=== PATIENT | female | born 1955 | race Caucasian/White ===

== ENCOUNTER 2017-11-23 10:14 | Day surgery (SDC) | payer BC, SELFPAY ==
[2017-11-20 15:21] VITALS: BMI 28.7
[2017-11-23 10:38] VITALS: BP 136/73; PULSE 100; RESP 18; TEMP 36.7; O2SAT 94
[2017-11-23 11:25] VITALS: BP 138/72; PULSE 85; RESP 18; TEMP 36.8; O2SAT 95
[2017-11-23 11:55] VITALS: BP 141/77; PULSE 76; RESP 18; TEMP 36.8; O2SAT 97
--- NOTE | 2017-11-23 12:02 | SUR.OPER ---
Vinh Enamorado, pathologist performed bone marrow biopsy, not Nii Pelaez.
--- NOTE | 2017-11-23 12:10 | SUR.OPER ---
system will not allow me to put another name in besides Dr. Nii Pelaez, although he did NOT perform the bone marrow biopsy.
== END 2017-11-23 11:55 | disposition home or self-care (01) ==
PROVIDERS: Pathology Anatomic Pathology & Clinical Pathology; PCP Family Medicine; Visit Provider Internal Medicine Medical Oncology
DX: D72.824 Basophilia
CPT/HCPCS: 38221; 20220; J1642

== ENCOUNTER → 2017-12-03 11:53 | Outpatient (CLI) | payer BC, SELFPAY ==
[2017-12-03 12:26] LABS: Basophils # 1.4 K/mm3 (0-0.2); Basophils % 3.6 % (0.1-2.0); Eosinophils # 1.1 K/mm3 (0.0-0.4); Eosinophils % 2.6 % (0.1-12.0); Lymphocytes # 1.4 K/mm3 (0.7-4.5); Lymphocytes % 3.5 K/mm3 (10-50); Mean Corpuscular HGB Conc 31.2 g/dL (31.8-35.4); Mean Corpuscular Volume 92.9 fl (81-99); Mean Platelet Volume 8.3 fl (7.4-10.4); Monocytes # 1.8 K/mm3 (0.1-1.0); Monocytes % 4.5 % (1.7-9.3); Neutrophils # 34.6 K/mm3 (1.8-7.8); Neutrophils % 85.9 % (37.0-80.0); Platelet Count 203 K/mm3 (142-424); Red Blood Count 4.84 M/mm3 (4.20-5.40); Red Cell Distribution Width 14.8 % (11.5-17.5)
[2017-12-03 12:47] LABS: MANUAL DIFFERENTIAL MANUAL DIFFERENTIAL (MANUAL DIFF); White Blood Count 40.3 K/mm3 (4.8-10.8)
[2017-12-03 14:30] LABS: Eosinophils % 1 % (0-3); Lymphocytes % 7 % (10-50); Monocytes % 4 % (2-9); Neutrophils % 67 % (42-76); Total Cells Counted 100
[2017-12-03 14:34] LABS: Platelet Estimate Normal; RBC Morphology Normal
[2017-12-03 14:39] LABS: Alanine Aminotransferase 38 U/L (12-78); Albumin Level 4.1 gm/dL (3.4-5.0); Albumin/Globulin Ratio 1.2 (1.1-1.8); Alkaline Phosphatase 81 U/L (46-116); Anion Gap 10.4 mEq/L (5-15); Aspartate Amino Transferase 21 U/L (15-37); Bilirubin,Total 0.3 mg/dL (0.2-1.0); Blood Urea Nitrogen 17 mg/dL (7-18); Calcium 10.3 mg/dL (8.5-10.1); Carbon Dioxide 29 mmol/L (21.0-32.0); Chloride 106 mmol/L (98-107); Creatinine,Serum 0.91 mg/dL (0.55-1.02); Estimated Glomerular Filt Rate 62 ml/min (>60); GFR (African American) 75 ML/MIN (>60); Globulin 3.5 gm/dl (1.3-3.2); Glucose 89 mg/dL (74-106); Magnesium 2.1 mg/dL (1.4-2.2); Potassium 4.4 mmoL/L (3.5-5.1); Sodium 141 mmol/L (136-145); Total Protein,Serum 7.6 gm/dL (6.4-8.2)
[2017-12-05 14:36] LABS: Peripheral Smear Review Scanned Result
[2017-12-11 15:18] LABS: e13a2 (b2a2) transcript Comment: % (.)
== END ==
PROVIDERS: Visit Provider Internal Medicine Medical Oncology
DX: C92.10 Chronic myeloid leukemia, BCR/ABL-positive, not having achieved remission (principal)
CPT/HCPCS: 36415; 80053; 81206; 83735; 85007; 85025; 93005

== ENCOUNTER → 2017-12-24 13:00 | Outpatient (CLI) | payer BC, SELFPAY ==
[2017-12-24 13:50] LABS: Basophils # 0.1 K/mm3 (0-0.2); Eosinophils # 0.1 K/mm3 (0.0-0.4); Eosinophils % 1.9 % (0.1-12.0); Hematocrit 37.2 % (37.0-47.0); Hemoglobin 12.3 g/dL (12.2-16.2); Lymphocytes # 0.8 K/mm3 (0.7-4.5); Lymphocytes % 11.4 K/mm3 (10-50); Mean Corpuscular HGB Conc 33.1 g/dL (31.8-35.4); Mean Corpuscular Hemoglobin 30.8 pg (27.0-31.2); Mean Corpuscular Volume 93.2 fl (81-99); Mean Platelet Volume 8.3 fl (7.4-10.4); Monocytes # 0.2 K/mm3 (0.1-1.0); Monocytes % 3.5 % (1.7-9.3); Neutrophils # 5.8 K/mm3 (1.8-7.8); Neutrophils % 82.2 % (37.0-80.0); Platelet Count 138 K/mm3 (142-424); Red Blood Count 3.99 M/mm3 (4.20-5.40)
[2017-12-24 14:20] LABS: Alanine Aminotransferase 37 U/L (12-78); Albumin Level 3.7 gm/dL (3.4-5.0); Albumin/Globulin Ratio 1.2 (1.1-1.8); Alkaline Phosphatase 88 U/L (46-116); Anion Gap 11.2 mEq/L (5-15); Aspartate Amino Transferase 20 U/L (15-37); Bilirubin,Total 0.5 mg/dL (0.2-1.0); Blood Urea Nitrogen 17 mg/dL (7-18); Calcium 10.1 mg/dL (8.5-10.1); Carbon Dioxide 29 mmol/L (21.0-32.0); Chloride 104 mmol/L (98-107); Creatinine,Serum 1.02 mg/dL (0.55-1.02); Estimated Glomerular Filt Rate 55 ml/min (>60); GFR (African American) 66 ML/MIN (>60); Globulin 3.1 gm/dl (1.3-3.2); Glucose 114 mg/dL (74-106); Magnesium 1.9 mg/dL (1.4-2.2); Potassium 4.2 mmoL/L (3.5-5.1); Sodium 140 mmol/L (136-145); Total Protein,Serum 6.8 gm/dL (6.4-8.2)
== END ==
LOC: LAB 13:01 → RT 14:22
PROVIDERS: PCP Family Medicine; Visit Provider Internal Medicine Medical Oncology
DX: D72.829 Elevated white blood cell count, unspecified (principal)
CPT/HCPCS: 36415; 80053; 83735; 85025; 93005

== ENCOUNTER → 2017-12-31 08:14 | Outpatient (CLI) | payer BC, SELFPAY ==
[2017-12-31 08:46] LABS: Basophils % 0.4 % (0.1-2.0); Eosinophils # 0.1 K/mm3 (0.0-0.4); Eosinophils % 4.1 % (0.1-12.0); Hematocrit 36.8 % (37.0-47.0); Lymphocytes # 0.8 K/mm3 (0.7-4.5); Lymphocytes % 23.8 K/mm3 (10-50); Mean Corpuscular HGB Conc 32.5 g/dL (31.8-35.4); Mean Corpuscular Hemoglobin 30.5 pg (27.0-31.2); Mean Platelet Volume 8.1 fl (7.4-10.4); Monocytes # 0.2 K/mm3 (0.1-1.0); Monocytes % 6.1 % (1.7-9.3); Neutrophils # 2.2 K/mm3 (1.8-7.8); Neutrophils % 65.6 % (37.0-80.0); Platelet Count 161 K/mm3 (142-424); Red Blood Count 3.92 M/mm3 (4.20-5.40); Red Cell Distribution Width 15.4 % (11.5-17.5); White Blood Count 3.3 K/mm3 (4.8-10.8)
== END ==
PROVIDERS: PCP Family Medicine; Visit Provider Internal Medicine Medical Oncology
DX: C92.10 Chronic myeloid leukemia, BCR/ABL-positive, not having achieved remission (principal)
CPT/HCPCS: 36415; 85025

== ENCOUNTER → 2018-01-07 13:10 | Outpatient (CLI) | payer MEDICARE, SELFPAY ==
[2018-01-07 13:44] LABS: Basophils % 0.9 % (0.1-2.0); Eosinophils # 0.2 K/mm3 (0.0-0.4); Eosinophils % 6.8 % (0.1-12.0); Hemoglobin 12.1 g/dL (12.2-16.2); Lymphocytes # 0.7 K/mm3 (0.7-4.5); Mean Corpuscular HGB Conc 31.7 g/dL (31.8-35.4); Mean Corpuscular Hemoglobin 30.3 pg (27.0-31.2); Mean Corpuscular Volume 95.6 fl (81-99); Mean Platelet Volume 8.1 fl (7.4-10.4); Monocytes # 0.2 K/mm3 (0.1-1.0); Monocytes % 8.2 % (1.7-9.3); Neutrophils # 1.7 K/mm3 (1.8-7.8); Neutrophils % 59.1 % (37.0-80.0); Platelet Count 227 K/mm3 (142-424); Red Blood Count 3.98 M/mm3 (4.20-5.40); Red Cell Distribution Width 15.3 % (11.5-17.5); White Blood Count 2.9 K/mm3 (4.8-10.8)
== END ==
PROVIDERS: PCP Family Medicine; Referring Provider Internal Medicine Medical Oncology; Visit Provider Internal Medicine Medical Oncology
DX: C92.10 Chronic myeloid leukemia, BCR/ABL-positive, not having achieved remission (principal)
CPT/HCPCS: 36415; 85025

== ENCOUNTER → 2018-01-21 09:04 | Outpatient (CLI) | payer MEDICARE, SELFPAY ==
[2018-01-21 09:23] LABS: Basophils # 0.1 K/mm3 (0-0.2); Basophils % 2.8 % (0.1-2.0); Eosinophils # 0.1 K/mm3 (0.0-0.4); Eosinophils % 1.4 % (0.1-12.0); Hematocrit 41.4 % (37.0-47.0); Hemoglobin 13.5 g/dL (12.2-16.2); Lymphocytes # 0.9 K/mm3 (0.7-4.5); Lymphocytes % 20.1 K/mm3 (10-50); Mean Corpuscular HGB Conc 32.5 g/dL (31.8-35.4); Mean Corpuscular Hemoglobin 30.7 pg (27.0-31.2); Mean Corpuscular Volume 94.3 fl (81-99); Mean Platelet Volume 8.3 fl (7.4-10.4); Monocytes # 0.3 K/mm3 (0.1-1.0); Monocytes % 7.7 % (1.7-9.3); Neutrophils % 68.1 % (37.0-80.0); Platelet Count 177 K/mm3 (142-424); Red Blood Count 4.39 M/mm3 (4.20-5.40); Red Cell Distribution Width 14.3 % (11.5-17.5); White Blood Count 4.5 K/mm3 (4.8-10.8)
== END ==
PROVIDERS: PCP Family Medicine; Visit Provider Internal Medicine Medical Oncology
DX: C92.10 Chronic myeloid leukemia, BCR/ABL-positive, not having achieved remission (principal)
CPT/HCPCS: 36415; 85025

== ENCOUNTER → 2018-01-28 09:12 | Outpatient (CLI) | payer MEDICARE, SELFPAY ==
[2018-01-28 10:03] LABS: Basophils # 0.1 K/mm3 (0-0.2); Basophils % 1.4 % (0.1-2.0); Eosinophils # 0.1 K/mm3 (0.0-0.4); Hematocrit 44.1 % (37.0-47.0); Hemoglobin 14.1 g/dL (12.2-16.2); Lymphocytes # 1.1 K/mm3 (0.7-4.5); Lymphocytes % 17.2 K/mm3 (10-50); Mean Corpuscular HGB Conc 31.9 g/dL (31.8-35.4); Mean Corpuscular Hemoglobin 30.7 pg (27.0-31.2); Mean Corpuscular Volume 96.2 fl (81-99); Mean Platelet Volume 8.6 fl (7.4-10.4); Monocytes # 0.4 K/mm3 (0.1-1.0); Monocytes % 6.3 % (1.7-9.3); Neutrophils # 4.6 K/mm3 (1.8-7.8); Platelet Count 205 K/mm3 (142-424); Red Blood Count 4.59 M/mm3 (4.20-5.40); Red Cell Distribution Width 14.2 % (11.5-17.5); White Blood Count 6.3 K/mm3 (4.8-10.8)
== END ==
PROVIDERS: PCP Family Medicine; Visit Provider Internal Medicine Medical Oncology
DX: C92.10 Chronic myeloid leukemia, BCR/ABL-positive, not having achieved remission (principal)
CPT/HCPCS: 36415; 85025

== ENCOUNTER → 2018-02-10 16:52 | Outpatient (CLI) | payer MEDICARE, SELFPAY ==
[2018-02-10 17:14] LABS: Basophils # 0.1 K/mm3 (0-0.2); Eosinophils # 0.2 K/mm3 (0.0-0.4); Hematocrit 40.4 % (37.0-47.0); Hemoglobin 13.1 g/dL (12.2-16.2); Lymphocytes # 1.1 K/mm3 (0.7-4.5); Lymphocytes % 21.4 K/mm3 (10-50); Mean Corpuscular HGB Conc 32.5 g/dL (31.8-35.4); Mean Corpuscular Hemoglobin 30.3 pg (27.0-31.2); Mean Corpuscular Volume 93.4 fl (81-99); Mean Platelet Volume 8.2 fl (7.4-10.4); Monocytes # 0.3 K/mm3 (0.1-1.0); Neutrophils # 3.6 K/mm3 (1.8-7.8); Neutrophils % 68.7 % (37.0-80.0); Platelet Count 202 K/mm3 (142-424); Red Blood Count 4.32 M/mm3 (4.20-5.40); Red Cell Distribution Width 13.6 % (11.5-17.5); White Blood Count 5.2 K/mm3 (4.8-10.8)
== END ==
PROVIDERS: PCP Family Medicine; Visit Provider Internal Medicine Medical Oncology
DX: C92.10 Chronic myeloid leukemia, BCR/ABL-positive, not having achieved remission (principal)
CPT/HCPCS: 36415; 85025

== ENCOUNTER → 2018-03-10 09:25 | Outpatient (CLI) | payer MEDICARE, SELFPAY ==
[2018-03-10 10:39] LABS: Alanine Aminotransferase 35 U/L (12-78); Albumin Level 3.7 gm/dL (3.4-5.0); Albumin/Globulin Ratio 1.2 (1.1-1.8); Alkaline Phosphatase 84 U/L (46-116); Anion Gap 13.7 mEq/L (5-15); Aspartate Amino Transferase 29 U/L (15-37); Bilirubin,Total 0.3 mg/dL (0.2-1.0); Blood Urea Nitrogen 14 mg/dL (7-18); Calcium 9.5 mg/dL (8.5-10.1); Carbon Dioxide 27 mmol/L (21.0-32.0); Chloride 105 mmol/L (98-107); Creatinine,Serum 0.93 mg/dL (0.55-1.02); Estimated Glomerular Filt Rate 61 ml/min (>60); GFR (African American) 73 ML/MIN (>60); Globulin 3.2 gm/dl (1.3-3.2); Glucose 85 mg/dL (74-106); Potassium 4.7 mmoL/L (3.5-5.1); Sodium 141 mmol/L (136-145); Total Protein,Serum 6.9 gm/dL (6.4-8.2)
[2018-03-10 11:12] LABS: Basophils % 0.9 % (0.1-2.0); Eosinophils # 0.1 K/mm3 (0.0-0.4); Eosinophils % 3.9 % (0.1-12.0); Hemoglobin 12.8 g/dL (12.2-16.2); Lymphocytes # 0.9 K/mm3 (0.7-4.5); Lymphocytes % 26.6 % (10-50); Mean Corpuscular HGB Conc 32.1 g/dL (31.8-35.4); Mean Corpuscular Hemoglobin 30.3 pg (27.0-31.2); Mean Corpuscular Volume 94.3 fl (81-99); Mean Platelet Volume 8.3 fl (7.4-10.4); Monocytes # 0.2 K/mm3 (0.1-1.0); Monocytes % 7.2 % (1.7-9.3); Neutrophils % 61.5 % (37.0-80.0); Platelet Count 216 K/mm3 (142-424); Red Blood Count 4.24 M/mm3 (4.20-5.40); Red Cell Distribution Width 14.3 % (11.5-17.5); White Blood Count 3.3 K/mm3 (4.8-10.8)
== END ==
PROVIDERS: Visit Provider Internal Medicine Medical Oncology
DX: C92.10 Chronic myeloid leukemia, BCR/ABL-positive, not having achieved remission (principal)
CPT/HCPCS: 36415; 80053; 85025

== ENCOUNTER → 2018-03-31 11:17 | Outpatient (CLI) | payer MEDICARE, SELFPAY ==
[2018-03-31 12:11] LABS: Basophils % 0.7 % (0.1-2.0); Eosinophils # 0.1 K/mm3 (0.0-0.4); Eosinophils % 2.8 % (0.1-12.0); Hematocrit 39.7 % (37.0-47.0); Hemoglobin 12.7 g/dL (12.2-16.2); Lymphocytes # 0.7 K/mm3 (0.7-4.5); Lymphocytes % 14.9 % (10-50); Mean Corpuscular HGB Conc 31.9 g/dL (31.8-35.4); Mean Corpuscular Hemoglobin 30.1 pg (27.0-31.2); Mean Corpuscular Volume 94.2 fl (81-99); Mean Platelet Volume 7.8 fl (7.4-10.4); Monocytes # 0.3 K/mm3 (0.1-1.0); Neutrophils # 3.5 K/mm3 (1.8-7.8); Neutrophils % 75.6 % (37.0-80.0); Platelet Count 204 K/mm3 (142-424); Red Blood Count 4.22 M/mm3 (4.20-5.40); Red Cell Distribution Width 14.2 % (11.5-17.5); White Blood Count 4.6 K/mm3 (4.8-10.8)
[2018-03-31 13:18] LABS: Alanine Aminotransferase 32 U/L (12-78); Albumin Level 3.7 gm/dL (3.4-5.0); Albumin/Globulin Ratio 1.2 (1.1-1.8); Alkaline Phosphatase 70 U/L (46-116); Anion Gap 13.1 mEq/L (5-15); Aspartate Amino Transferase 20 U/L (15-37); Bilirubin,Total 0.3 mg/dL (0.2-1.0); Blood Urea Nitrogen 15 mg/dL (7-18); Calcium 9.5 mg/dL (8.5-10.1); Carbon Dioxide 27 mmol/L (21.0-32.0); Chloride 105 mmol/L (98-107); Creatinine,Serum 1.05 mg/dL (0.55-1.02); Estimated Glomerular Filt Rate 53 ml/min (>60); GFR (African American) 64 ML/MIN (>60); Glucose 96 mg/dL (74-106); Potassium 4.1 mmoL/L (3.5-5.1); Sodium 141 mmol/L (136-145); Total Protein,Serum 6.7 gm/dL (6.4-8.2)
== END ==
PROVIDERS: Visit Provider Internal Medicine Medical Oncology
DX: C92.10 Chronic myeloid leukemia, BCR/ABL-positive, not having achieved remission (principal)
CPT/HCPCS: 36415; 80053; 81206; 85025

== ENCOUNTER → 2018-04-02 11:39 | Outpatient (CLI) | payer MEDICARE, SELFPAY ==
[2018-04-02 14:42] LABS: Free T4 (Free Thyroxine) 0.95 ng/dl (0.76-1.46); Thyroid Stimulating Hormone 2.23 uIU/ml (0.358-3.740)
== END ==
PROVIDERS: Visit Provider Internal Medicine
DX: C73 Malignant neoplasm of thyroid gland (principal)
CPT/HCPCS: 36415; 84436; 84439; 84443

== ENCOUNTER → 2018-05-25 10:46 | Outpatient (POV) | payer MEDICARE, SELFPAY | PROVIDERS: Visit Provider Dermatology | DX: Z00.00 Encounter for general adult medical examination without abnormal findings (principal) ==

== ENCOUNTER → 2018-06-02 13:08 | Outpatient (CLI) | payer MEDICARE, SELFPAY ==
[2018-06-02 14:13] LABS: Basophils % 0.7 % (0.1-2.0); Eosinophils # 0.1 K/mm3 (0.0-0.4); Eosinophils % 3.6 % (0.1-12.0); Hematocrit 38.8 % (37.0-47.0); Hemoglobin 12.8 g/dL (12.2-16.2); Lymphocytes # 0.9 K/mm3 (0.7-4.5); Lymphocytes % 22.7 % (10-50); Mean Corpuscular Hemoglobin 31.6 pg (27.0-31.2); Mean Corpuscular Volume 95.9 fl (81-99); Mean Platelet Volume 7.8 fl (7.4-10.4); Monocytes # 0.2 K/mm3 (0.1-1.0); Monocytes % 5.3 % (1.7-9.3); Neutrophils # 2.6 K/mm3 (1.8-7.8); Neutrophils % 67.7 % (37.0-80.0); Platelet Count 209 K/mm3 (142-424); Red Blood Count 4.04 M/mm3 (4.20-5.40); Red Cell Distribution Width 14.4 % (11.5-17.5); White Blood Count 3.9 K/mm3 (4.8-10.8)
[2018-06-02 15:00] LABS: Alanine Aminotransferase 38 U/L (12-78); Albumin Level 3.5 gm/dL (3.4-5.0); Albumin/Globulin Ratio 1.1 (1.1-1.8); Alkaline Phosphatase 73 U/L (46-116); Anion Gap 12.3 mEq/L (5-15); Aspartate Amino Transferase 23 U/L (15-37); Bilirubin,Total 0.5 mg/dL (0.2-1.0); Blood Urea Nitrogen 20 mg/dL (7-18); Calcium 9.8 mg/dL (8.5-10.1); Carbon Dioxide 28 mmol/L (21.0-32.0); Chloride 106 mmol/L (98-107); Estimated Glomerular Filt Rate 50 ml/min (>60); GFR (African American) 60 ML/MIN (>60); Globulin 3.1 gm/dl (1.3-3.2); Glucose 117 mg/dL (74-106); Potassium 4.3 mmoL/L (3.5-5.1); Sodium 142 mmol/L (136-145); Total Protein,Serum 6.6 gm/dL (6.4-8.2)
== END ==
PROVIDERS: Visit Provider Internal Medicine Medical Oncology
DX: C92.10 Chronic myeloid leukemia, BCR/ABL-positive, not having achieved remission (principal)
CPT/HCPCS: 36415; 80053; 85025

== ENCOUNTER → 2018-06-22 12:56 | Outpatient (POV) | payer MEDICARE, SELFPAY | PROVIDERS: Visit Provider Dermatology | DX: Z00.00 Encounter for general adult medical examination without abnormal findings (principal) ==

== ENCOUNTER → 2018-07-13 07:47 | Outpatient (CLI) | payer MEDICARE, SELFPAY ==
[2018-07-13 08:11] LABS: Basophils % 0.6 % (0.1-2.0); Eosinophils # 0.1 K/mm3 (0.0-0.4); Eosinophils % 3.3 % (0.1-12.0); Hematocrit 38.8 % (37.0-47.0); Lymphocytes # 1.1 K/mm3 (0.7-4.5); Lymphocytes % 29.2 % (10-50); Mean Corpuscular HGB Conc 33.6 g/dL (31.8-35.4); Mean Corpuscular Hemoglobin 31.6 pg (27.0-31.2); Mean Platelet Volume 8.2 fl (7.4-10.4); Monocytes # 0.2 K/mm3 (0.1-1.0); Monocytes % 5.9 % (1.7-9.3); Neutrophils # 2.3 K/mm3 (1.8-7.8); Platelet Count 200 K/mm3 (142-424); Red Blood Count 4.12 M/mm3 (4.20-5.40); Red Cell Distribution Width 13.2 % (11.5-17.5); White Blood Count 3.8 K/mm3 (4.8-10.8)
[2018-07-13 08:53] LABS: Alanine Aminotransferase 37 U/L (12-78); Albumin Level 3.7 gm/dL (3.4-5.0); Albumin/Globulin Ratio 1.2 (1.1-1.8); Alkaline Phosphatase 71 U/L (46-116); Anion Gap 13.3 mEq/L (5-15); Aspartate Amino Transferase 21 U/L (15-37); Bilirubin,Total 0.4 mg/dL (0.2-1.0); Blood Urea Nitrogen 13 mg/dL (7-18); Calcium 9.7 mg/dL (8.5-10.1); Carbon Dioxide 28 mmol/L (21.0-32.0); Chloride 104 mmol/L (98-107); Creatinine,Serum 0.94 mg/dL (0.55-1.02); Estimated Glomerular Filt Rate 60 ml/min (>60); GFR (African American) 72 ML/MIN (>60); Globulin 3.2 gm/dl (1.3-3.2); Glucose 137 mg/dL (74-106); Potassium 4.3 mmoL/L (3.5-5.1); Sodium 141 mmol/L (136-145); Total Protein,Serum 6.9 gm/dL (6.4-8.2)
== END ==
PROVIDERS: Visit Provider Internal Medicine Medical Oncology
DX: C92.10 Chronic myeloid leukemia, BCR/ABL-positive, not having achieved remission (principal)
CPT/HCPCS: 36415; 80053; 81206; 85025

== ENCOUNTER → 2018-09-07 11:40 | Outpatient (CLI) | payer MEDICARE, SELFPAY ==
[2018-09-07 12:55] LABS: Free T4 (Free Thyroxine) 1.25 ng/dl (0.76-1.46); Thyroid Stimulating Hormone 0.49 uIU/ml (0.358-3.740)
== END ==
PROVIDERS: Visit Provider Internal Medicine
DX: C73 Malignant neoplasm of thyroid gland (principal)
CPT/HCPCS: 36415; 84439; 84443

== ENCOUNTER → 2018-09-13 10:47 | Outpatient (CLI) | payer MEDICARE, SELFPAY ==
[2018-09-13 11:13] LABS: Basophils % 0.6 % (0.1-2.0); Eosinophils # 0.2 K/mm3 (0.0-0.4); Eosinophils % 4.2 % (0.1-12.0); Hematocrit 38.8 % (37.0-47.0); Hemoglobin 12.9 g/dL (12.2-16.2); Lymphocytes # 1.2 K/mm3 (0.7-4.5); Lymphocytes % 29.1 % (10-50); Mean Corpuscular HGB Conc 33.1 g/dL (31.8-35.4); Mean Corpuscular Hemoglobin 30.8 pg (27.0-31.2); Mean Platelet Volume 8.2 fl (7.4-10.4); Monocytes # 0.3 K/mm3 (0.1-1.0); Monocytes % 6.7 % (1.7-9.3); Neutrophils # 2.4 K/mm3 (1.8-7.8); Neutrophils % 59.4 % (37.0-80.0); Platelet Count 187 K/mm3 (142-424); Red Blood Count 4.18 M/mm3 (4.20-5.40); Red Cell Distribution Width 12.9 % (11.5-17.5); White Blood Count 4.1 K/mm3 (4.8-10.8)
[2018-09-13 11:55] LABS: Alanine Aminotransferase 36 U/L (12-78); Albumin/Globulin Ratio 1.2 (1.1-1.8); Alkaline Phosphatase 64 U/L (46-116); Anion Gap 13.3 mEq/L (5-15); Aspartate Amino Transferase 21 U/L (15-37); Bilirubin,Total 0.4 mg/dL (0.2-1.0); Blood Urea Nitrogen 13 mg/dL (7-18); Carbon Dioxide 28 mmol/L (21.0-32.0); Chloride 105 mmol/L (98-107); Creatinine,Serum 0.97 mg/dL (0.55-1.02); Estimated Glomerular Filt Rate 58 ml/min (>60); GFR (African American) 70 ML/MIN (>60); Globulin 3.3 gm/dl (1.3-3.2); Glucose 95 mg/dL (74-106); Potassium 4.3 mmoL/L (3.5-5.1); Sodium 142 mmol/L (136-145); Total Protein,Serum 7.3 gm/dL (6.4-8.2)
== END ==
PROVIDERS: Visit Provider Internal Medicine Medical Oncology
DX: C92.10 Chronic myeloid leukemia, BCR/ABL-positive, not having achieved remission (principal)
CPT/HCPCS: 36415; 80053; 81206; 85025

== ENCOUNTER → 2018-11-09 08:42 | Outpatient (POV) | payer MEDICARE, SELFPAY | PROVIDERS: Visit Provider Dermatology | DX: Z00.00 Encounter for general adult medical examination without abnormal findings (principal) ==

== ENCOUNTER → 2018-12-07 11:31 | Outpatient (CLI) | payer MEDICARE, SELFPAY ==
[2018-12-07 11:58] LABS: Basophils % 0.4 % (0.1-2.0); Eosinophils # 0.2 K/mm3 (0.0-0.4); Eosinophils % 3.1 % (0.1-12.0); Hematocrit 38.8 % (37.0-47.0); Hemoglobin 12.6 g/dL (12.2-16.2); Lymphocytes # 1.4 K/mm3 (0.7-4.5); Lymphocytes % 28.9 % (10-50); Mean Corpuscular HGB Conc 32.4 g/dL (31.8-35.4); Mean Corpuscular Hemoglobin 30.1 pg (27.0-31.2); Monocytes # 0.3 K/mm3 (0.1-1.0); Monocytes % 5.7 % (1.7-9.3); Neutrophils # 3.1 K/mm3 (1.8-7.8); Platelet Count 191 K/mm3 (142-424); Red Blood Count 4.17 M/mm3 (4.20-5.40); Red Cell Distribution Width 14.6 % (11.5-17.5)
[2018-12-07 12:27] LABS: Alanine Aminotransferase 34 U/L (12-78); Albumin Level 3.8 gm/dL (3.4-5.0); Albumin/Globulin Ratio 1.2 (1.1-1.8); Alkaline Phosphatase 69 U/L (46-116); Anion Gap 13.2 mEq/L (5-15); Aspartate Amino Transferase 22 U/L (15-37); Bilirubin,Total 0.4 mg/dL (0.2-1.0); Blood Urea Nitrogen 15 mg/dL (7-18); Calcium 10.4 mg/dL (8.5-10.1); Carbon Dioxide 28 mmol/L (21.0-32.0); Chloride 105 mmol/L (98-107); Creatinine,Serum 0.95 mg/dL (0.55-1.02); Estimated Glomerular Filt Rate 59 ml/min (>60); GFR (African American) 71 ML/MIN (>60); Globulin 3.3 gm/dl (1.3-3.2); Glucose 85 mg/dL (74-106); Potassium 4.2 mmoL/L (3.5-5.1); Sodium 142 mmol/L (136-145); Total Protein,Serum 7.1 gm/dL (6.4-8.2)
== END ==
PROVIDERS: Visit Provider Internal Medicine Medical Oncology
DX: C92.10 Chronic myeloid leukemia, BCR/ABL-positive, not having achieved remission (principal)
CPT/HCPCS: 36415; 80053; 81206; 85025

== ENCOUNTER → 2019-03-11 10:59 | Outpatient (CLI) | payer MEDICARE, SELFPAY ==
[2019-03-11 12:21] LABS: Alanine Aminotransferase 32 U/L (12-78); Albumin Level 3.8 gm/dL (3.4-5.0); Albumin/Globulin Ratio 1.2 (1.1-1.8); Alkaline Phosphatase 61 U/L (46-116); Anion Gap 14.1 mEq/L (5-15); Aspartate Amino Transferase 20 U/L (15-37); Bilirubin,Total 0.3 mg/dL (0.2-1.0); Blood Urea Nitrogen 18 mg/dL (7-18); Calcium 10.5 mg/dL (8.5-10.1); Carbon Dioxide 26 mmol/L (21.0-32.0); Chloride 103 mmol/L (98-107); Creatinine,Serum 1.04 mg/dL (0.55-1.02); Estimated Glomerular Filt Rate 53 ml/min (>60); GFR (African American) 64 ML/MIN (>60); Globulin 3.2 gm/dl (1.3-3.2); Glucose 126 mg/dL (74-106); Potassium 4.1 mmoL/L (3.5-5.1); Sodium 139 mmol/L (136-145)
[2019-03-11 17:29] LABS: Basophils % 0.8 % (0.1-2.0); Eosinophils # 0.2 K/mm3 (0.0-0.4); Eosinophils % 2.8 % (0.1-12.0); Hemoglobin 13.1 g/dL (12.2-16.2); Lymphocytes # 1.5 K/mm3 (0.7-4.5); Lymphocytes % 29.5 % (10-50); Mean Corpuscular HGB Conc 33.5 g/dL (31.8-35.4); Mean Corpuscular Hemoglobin 31.3 pg (27.0-31.2); Mean Corpuscular Volume 93.4 fl (81-99); Mean Platelet Volume 9.6 fl (7.4-10.4); Monocytes # 0.3 K/mm3 (0.1-1.0); Monocytes % 4.8 % (1.7-9.3); Neutrophils # 3.2 K/mm3 (1.8-7.8); Neutrophils % 62.1 % (37.0-80.0); Platelet Count 216 K/mm3 (142-424); Red Blood Count 4.18 M/mm3 (4.20-5.40); Red Cell Distribution Width 13.5 % (11.5-17.5); White Blood Count 5.2 K/mm3 (4.8-10.8)
== END ==
PROVIDERS: Visit Provider Internal Medicine Hematology & Oncology
DX: C92.10 Chronic myeloid leukemia, BCR/ABL-positive, not having achieved remission (principal)
CPT/HCPCS: 36415; 80053; 81206; 85025

== ENCOUNTER → 2019-06-28 10:42 | Outpatient (CLI) | payer MEDICARE, SELFPAY ==
--- NOTE | 2019-06-28 10:44 | MM_ITS ---
PROCEDURE: MM DIG SCREENING MAMM BI W/CAD DIGITAL BREAST TOMOSYNTHESIS IMAGES INCLUDED Patient Age:64Y CLINICAL INDICATION: SCREENING: Previous benign excisional biopsies towards lateral mid right and left breast. . No hormones but no new complaints. Is COMPARISON: PB MAMM SCREEN BILAT DIG PNL from 05/06/2011 PB MAMM SCREEN BILAT DIG PNL from 03/02/2013 PB MAMM SCREEN BILAT DIG PNL from 05/24/2014 TECHNIQUE: Standard CC and MLO images were obtained. R2 CAD reviewed. Breast tomosynthesis included FINDINGS: Moderately dense breast tissue bilateral Right breast but there is a vague new ovoid density central breast nearly 4 cm deep to the nipple measuring 9 mm. Move the it is most notable on the MLO tomosynthesis image 45, 44 . Warrants ultrasound and cc, MLO spot views to further evaluate Although note this density appears new on MLO view there is a questionable corresponding longstanding density on CC images in this region Left breast:. No new areas of concern follow-up 1 year IMPRESSION: Right breast. Suggestion low-density density/nodule at central breast best seen on MLO tomosynthesis views Recommend ultrasound and additional views to further evaluate Left breast: Stable with no new areas of concern. Follow-up in 1 year on left Moderately dense breast bilateral a the sella the low who who should low voice BI-RAD Category: 0 Need Additional Imaging Evaluation FOLLOW-UP: IMM Immediate Follow-up Recommended (A letter has been sent to the patient regarding results of the study.) Dictated by: Francis Canas MD 07/01/2019 10:40 Electronically signed by Francis Canas MD in [place] 07/01/2019 10:40
== END ==
PROVIDERS: PCP Family Medicine; Visit Provider Family Medicine
DX: Z12.31 Encounter for screening mammogram for malignant neoplasm of breast (principal)
CPT/HCPCS: 77063; 77067

== ENCOUNTER → 2019-06-30 16:05 | Outpatient (CLI) | payer MEDICARE, SELFPAY | PROVIDERS: PCP Family Medicine; Visit Provider Family Medicine | DX: R00.2 Palpitations (principal) | CPT/HCPCS: 93270 ==

== ENCOUNTER → 2019-07-13 14:54 | Outpatient (CLI) | payer MEDICARE, SELFPAY ==
--- NOTE | 2019-07-13 14:56 | MM_ITS ---
PROCEDURE: MM DIG MAMM DX UNILAT RT CAD Digital Breast Tomosynthesis Included CLINICAL INDICATION: ABN MAMM COMPARISON: PB MAMM SCREEN BILAT DIG PNL from 03/02/2013 PB MAMM SCREEN BILAT DIG PNL from 05/24/2014 MM DIG SCREENING MAMM BI W/CAD from 06/28/2019 US BREAST RT COMPLETE from 07/13/2019 TECHNIQUE: Spot-compression views are performed along right breast ultrasound FINDINGS: There is dense fibroglandular tissue. 1 cm density is present in the retroareolar region not well delineated on the CC view. Right breast ultrasound: At 1 o'clock region there is a lobulated density at 17 by 17 mm. This is hypoechoic and is wider than it is tall with some enhanced through transmission of sound. Biopsy is suggested. At 4 o'clock near the nipple there is heterogeneous echogenicity at 3 point by 2 x 1.2 cm possibly due to intramammary node or fibrocystic fibroglandular tissue. IMPRESSION: Solid-appearing indeterminate nodule at 1 o'clock at 1.7 cm which may correspond to the mammographic abnormality in the central aspect of the breast. Ultrasound-guided mammotome biopsy is suggested. A complex nodule is noted at the 4 o'clock region. Fine-needle aspiration is recommended of this nodule. BI-RAD Category: 4 Suspicious Abnormality - Biopsy Considered FOLLOW-UP: BIO Biopsy Recommended (A letter has been sent to the patient regarding results of the study.) Dictated by: Karri Cordero MD 07/19/2019 15:32 Electronically signed by Karri Cordero MD in [place] 07/19/2019 15:32
== END ==
PROVIDERS: PCP Family Medicine; Visit Provider Family Medicine
DX: R92.8 Other abnormal and inconclusive findings on diagnostic imaging of breast (principal)
CPT/HCPCS: 76641; 77061; 77065; G0279

== ENCOUNTER → 2019-08-11 09:46 | Outpatient (CLI) | payer MEDICARE, SELFPAY ==
--- NOTE | 2019-08-11 09:53 | US_ITS ---
PROCEDURE: US MAMMOTOME BX RT CLINICAL INDICATION: BREAST MASS Solid nodule suspicious at 1 o'clock Complex cystic nodule at 4 o'clock COMPARISON: MM DIG SCREENING MAMM BI W/CAD from 06/28/2019 MM DIG MAMM DX UNILAT RT CAD from 07/13/2019 US FNA BREAST from 08/11/2019 MM DX IMPLANT RT W/KAROLINA from 08/11/2019 FINDINGS: Following obtaining informed consent and time-out procedure with oral and AG DIXON with 1 mg of alprazolam and 5 mg hydrocodone, under aseptic conditions and local anesthesia with 1 percent buffered lidocaine and deeper anesthesia with lidocaine mixed with epinephrine annually in sonographic guidance the solid nodule is located at 1 o'clock. Mammotome needle was inserted and multiple mammotome cores obtain. A clip was then placed. This is labeled as specimen A. In the same setting, using sonographic guidance, a 21 gauge needle was inserted into the area of complex echogenicity at 4 o'clock. Two passes were made with a 21 gauge needle. Specimen was given to cytology and labeled as specimen B. Post biopsy mammogram demonstrated clip placement within the medial aspect of the right breast corresponding to the area of mammographic abnormality. The Pathology: Specimen A.: Invasive grade 2 mucinous ductal carcinoma. Specimen B: Negative for malignant cells IMPRESSION: Uneventful ultrasound-guided mammotome biopsy of the right breast demonstrated invasive mucinous ductal carcinoma. Surgical consult with excision suggested. Dictated by: Karri Cordero MD 08/17/2019 17:44 Electronically signed by Karri Cordero MD in [place] 08/17/2019 17:44
== END ==
PROVIDERS: PCP Family Medicine; Visit Provider Family Medicine
DX: R92.8 Other abnormal and inconclusive findings on diagnostic imaging of breast (principal)
CPT/HCPCS: 19083; 76942; 77061; 77065; 88173; 88305; 88360; C2618; G0279

== ENCOUNTER → 2019-08-19 12:47 | Outpatient (CLI) | payer MEDICARE, SELFPAY ==
--- NOTE | 2019-08-19 12:52 | CA_ITS ---
APPROVED REPORT EXAM: Comprehensive 2D, Doppler, and color-flow Echocardiogram Professor Of Forestry: Suzy Fernandez RT(R) Ht: 5 ft 10 in Wt: 202lbs BSA: 2.10 BP: 131/62 mmHg Indications: Palpitations, tachycardia on monitor, hx of CML, hyperlipidemia 2D Dimensions LVOT 1.48 cm (M/F) 1.5-2.5 M-Mode Dimensions RVDd 2.52 cm (0.9-2.6) LVDd 4.54 cm (3.5-5.7) LVDs 3.33 cm (3.5-5.7) IVSd 0.81 cm (0.6-1.1) PWd 0.98 cm (0.6-1.1) EF (Teich) 52.20% FS 26.70% EDV (Teich) 94.40 mL ESV (Teich) 45.10 mL LV Diastology E/A Ratio 0.95 Mitral Valve MV A Velocity 98.00 (40-130 cm/s) Left Ventricle Left atrium is normal size, left ventricle is normal size, hyperdynamic left ventricular systolic function, visually estimated ejection fraction over 65% with no regional wall motion abnormality, grade 1 diastolic dysfunction seen without tissue Doppler evidence of raise left atrial pressure. Right Ventricle Right atrium right ventricular normal size and contractility. Aortic Valve Aortic valve is minimally thickened and fibrosed, there is no aortic stenosis or aortic insufficiency. Mitral Valve Mitral valve is grossly normal, there is mild mitral regurgitation. Tricuspid Valve Tricuspid valve grossly normal, there is mild tricuspid regurgitation, tricuspid regurgitation jet velocity is inadequate for calculation of the right ventricular systolic pressure. Pulmonic Valve Pulmonic valve is poorly visualized. Great Vessels Aortic root is normal size. Pericardium No significant pericardial effusion noted. Conclusion 1. Mildly enlarged left atrium, normal left ventricular size, hyperdynamic left ventricular systolic function, visually estimated ejection fraction over 65% with no regional wall motion abnormality, grade 1 diastolic dysfunction seen without tissue Doppler evidence of raise left atrial pressure. 2. Mild mitral and tricuspid regurgitation 3. No significant pericardial effusion noted. Electronically signed by : Fidencio López, 08/21/2019 18:13:59
== END ==
PROVIDERS: PCP Family Medicine; Visit Provider Family Medicine
DX: R00.2 Palpitations (principal); R00.0 Tachycardia, unspecified; I49.1 Atrial premature depolarization
CPT/HCPCS: 93306

== ENCOUNTER → 2019-08-24 10:49 | Outpatient (CLI) | payer MEDICARE, SELFPAY ==
[2019-08-24 11:24] LABS: Basophils % 0.4 % (0.1-2.0); Eosinophils # 0.1 K/mm3 (0.0-0.4); Eosinophils % 1.8 % (0.1-12.0); Hematocrit 41.6 % (37.0-47.0); Hemoglobin 13.4 g/dL (12.2-16.2); Lymphocytes # 1.4 K/mm3 (0.7-4.5); Lymphocytes % 20.8 % (10-50); Mean Corpuscular HGB Conc 32.2 g/dL (31.8-35.4); Mean Corpuscular Hemoglobin 29.5 pg (27.0-31.2); Mean Corpuscular Volume 91.5 fl (81-99); Mean Platelet Volume 8.8 fl (7.4-10.4); Monocytes # 0.5 K/mm3 (0.1-1.0); Neutrophils # 4.6 K/mm3 (1.8-7.8); Neutrophils % 70.1 % (37.0-80.0); Platelet Count 231 K/mm3 (142-424); Red Blood Count 4.55 M/mm3 (4.20-5.40); Red Cell Distribution Width 13.7 % (11.5-17.5); White Blood Count 6.6 K/mm3 (4.8-10.8)
[2019-08-24 13:07] LABS: Chloride 105 mmol/L (98-107); Potassium 4.8 mmoL/L (3.5-5.1); Sodium 139 mmol/L (136-145)
[2019-08-24 13:10] LABS: Alanine Aminotransferase 24 U/L (12-78); Albumin Level 4.5 g/dl (3.5-5.0); Albumin/Globulin Ratio 1.7 (1.1-1.8); Alkaline Phosphatase 67 U/L (38-126); Anion Gap 10.8 mEq/L (5-15); Aspartate Amino Transferase 33 U/L (14-36); Bilirubin,Total 0.4 mg/dl (0.2-1.3); Blood Urea Nitrogen 22 mg/dl (7-17); Calcium 11.1 mg/dl (8.4-10.2); Carbon Dioxide 28 mmol/L (22.0-30.0); Estimated Glomerular Filt Rate 50 ml/min (>60); GFR (African American) 60 ML/MIN (>60); Globulin 2.7 g/dL (1.3-3.2); Glucose 100 mg/dl (74-100); Total Protein,Serum 7.2 g/dl (6.3-8.2)
== END ==
PROVIDERS: Visit Provider Surgery
DX: C50.919 Malignant neoplasm of unspecified site of unspecified female breast (principal)
CPT/HCPCS: 36415; 80053; 85025

== ENCOUNTER → 2019-08-30 09:56 | Outpatient (CLI) | payer MEDICARE, SELFPAY ==
[2019-08-30 10:51] LABS: Basophils % 0.3 % (0.1-2.0); Eosinophils # 0.1 K/mm3 (0.0-0.4); Eosinophils % 2.2 % (0.1-12.0); Hematocrit 40.7 % (37.0-47.0); Lymphocytes # 1.4 K/mm3 (0.7-4.5); Lymphocytes % 27.1 % (10-50); Mean Corpuscular HGB Conc 31.9 g/dL (31.8-35.4); Mean Corpuscular Volume 94.2 fl (81-99); Mean Platelet Volume 9.3 fl (7.4-10.4); Monocytes # 0.3 K/mm3 (0.1-1.0); Monocytes % 5.5 % (1.7-9.3); Neutrophils # 3.3 K/mm3 (1.8-7.8); Neutrophils % 64.9 % (37.0-80.0); Platelet Count 211 K/mm3 (142-424); Red Blood Count 4.32 M/mm3 (4.20-5.40); Red Cell Distribution Width 13.8 % (11.5-17.5)
[2019-08-30 11:49] LABS: Alanine Aminotransferase 26 U/L (12-78); Albumin Level 4.1 g/dl (3.5-5.0); Albumin/Globulin Ratio 1.6 (1.1-1.8); Alkaline Phosphatase 57 U/L (38-126); Anion Gap 9.4 mEq/L (5-15); Aspartate Amino Transferase 33 U/L (14-36); Bilirubin,Total 0.4 mg/dl (0.2-1.3); Blood Urea Nitrogen 20 mg/dl (7-17); Calcium 9.9 mg/dl (8.4-10.2); Carbon Dioxide 27 mmol/L (22.0-30.0); Chloride 105 mmol/L (98-107); Estimated Glomerular Filt Rate 55 ml/min (>60); GFR (African American) 67 ML/MIN (>60); Globulin 2.5 g/dL (1.3-3.2); Glucose 109 mg/dl (74-100); Potassium 4.4 mmoL/L (3.5-5.1); Sodium 137 mmol/L (136-145); Total Protein,Serum 6.6 g/dl (6.3-8.2)
[2019-08-31 08:15] LABS: Covid-19 Nasal PCR Sendout Lex NOT DETECTED
--- NOTE | 2019-08-31 08:23 | PC.NURSE ---
pt notified of negative COVID 19 results
== END ==
PROVIDERS: Visit Provider Radiology Diagnostic Radiology
DX: Z03.818 Encounter for observation for suspected exposure to other biological agents ruled out
CPT/HCPCS: 36415; 80053; 81206; 85025; U0003

== ENCOUNTER 2019-09-01 07:02 | Day surgery (SDC) | payer MEDICARE, SELFPAY ==
[2019-08-30 09:09] VITALS: BMI 28.7
[2019-09-01] VITALS (15 sets, daily range): BP systolic 134–152; BP diastolic 57–85; PULSE 60–72; RESP 18; TEMP 36.6–43; O2SAT 93–99
--- NOTE | 2019-09-01 | US_ITS ---
PROCEDURE: US BREAST RT LIMITED CLINICAL INDICATION: Right breast carcinoma, hookwire localization COMPARISON: US FNA BREAST from 08/11/2019 MM DX IMPLANT RT W/KAROLINA from 08/11/2019 MM DIG MAMM DX UNILAT RT CAD from 09/01/2019 US BREAST NEEDLE LOC RT from 09/01/2019 MM SURGICAL SPECIMEN RT from 09/01/2019 FINDINGS: Patient was scheduled for mammogram hookwire placement however, the nodule of interest is not readily apparent by mammogram therefore, ultrasound was used for needle localization. Following obtaining informed consent and time-out procedure under aseptic conditions and local anesthesia with 1 percent buffered lidocaine, a 7 cm Kopan's needle was inserted into the breast nodule 2 o'clock and hookwire was employed. This was done under ultrasound guidance without complication. Mammogram was then obtained following hookwire localization showing a hookwire in place along the medial aspect of the right breast 2 o'clock position adjacent to the previously placed clip from the prior biopsy. The hookwire position is deemed satisfactory. Tissue specimen: Tissue specimen is submitted in consent and demonstrates the hookwire in place as well as the clip. There is some nodularity noted at the tip of the hookwire however, the nodule is still not well delineated which is often the case with mucinous carcinoma. Ultrasound tissue specimen: Ultrasound was performed of the tissue specimen showing the nodule of interest with the hookwire through the nodule. IMPRESSION: Successful and uneventful ultrasound-guided hookwire placement into the previously biopsied nodule with removal of that nodule as described above. Dictated by: Karri Cordero MD 09/02/2019 17:26 Electronically signed by Karri Cordero MD in [place] 09/02/2019 17:29
--- NOTE | 2019-09-01 08:21 | HMH.ANESCL ---
[facility] Anesthesia Checklist - Structural Data Admitted From: Home Planned Operative Procedure/s: needle loc l breast Consent for Planned Operative Procedure(s) Verified: Yes - Additional verifications Anesthesia Reactions: No (denies for self or family) Hx Blood Transfusions: No Blood Transfusion Reaction: No - Airway Assessment C-Spine Mobility Assessed: Yes TMJ Mobility Assessed: Yes Dentition: Good Dentition - Neurological Assessment Level of Consciousness: Awake, Alert, Appropriate - Anesthesia Plan Anesthesia Risk discussed: Yes Anesthesia Plan: Verified ASA Class: II Anesthesia Type: General [facility] History I have reviewed the patient's past medical history: Yes Medical History: Reports:: Cancer, Hyperlipidemia, Urinary Tract Infection Denies:: Diabetes Mellitus Type 1, Diabetes Mellitus Type 2, Internal Pacemaker, Lung Disease, MRSA, Seizures *Have you ever received a pneumonia vaccine?: Yes *Have you received a flu vaccine this season?: Yes Other Medical History: Reports: Anemia, Thyroid Disease. Denies: Blood Transfusion Reaction Anesthesia experience/problems:: none Other Surgeries: Yes: Colonoscopy, Hysterectomy-Total, Other (THYROIDECTOMY). No: Pacemaker Amputation: No Fractures: No - *Social History Educational Level: Completed Graduate School Smoking Status: Never smoker Alcohol Intake: never Substance Use Type: denies use *Occupational Status:: retired Housing: house Household Members: spouse *Travel in the last 8 weeks: None Family Hx:: Cancer, Hyperlipidemia
--- NOTE | 2019-09-01 12:13 | MM_ITS ---
PROCEDURE: MM SURGICAL SPECIMEN RT Digital Breast Tomosynthesis Included CLINICAL INDICATION: Right breast carcinoma, hookwire localization COMPARISON: US FNA BREAST from 08/11/2019 MM DX IMPLANT RT W/KAROLINA from 08/11/2019 MM DIG MAMM DX UNILAT RT CAD from 09/01/2019 US BREAST NEEDLE LOC RT from 09/01/2019 MM SURGICAL SPECIMEN RT from 09/01/2019 FINDINGS: Patient was scheduled for mammogram hookwire placement however, the nodule of interest is not readily apparent by mammogram therefore, ultrasound was used for needle localization. Following obtaining informed consent and time-out procedure under aseptic conditions and local anesthesia with 1 percent buffered lidocaine, a 7 cm Kopan's needle was inserted into the breast nodule 2 o'clock and hookwire was employed. This was done under ultrasound guidance without complication. Mammogram was then obtained following hookwire localization showing a hookwire in place along the medial aspect of the right breast 2 o'clock position adjacent to the previously placed clip from the prior biopsy. The hookwire position is deemed satisfactory. Tissue specimen: Tissue specimen is submitted in consent and demonstrates the hookwire in place as well as the clip. There is some nodularity noted at the tip of the hookwire however, the nodule is still not well delineated which is often the case with mucinous carcinoma. Ultrasound tissue specimen: Ultrasound was performed of the tissue specimen showing the nodule of interest with the hookwire through the nodule. IMPRESSION: Successful and uneventful ultrasound-guided hookwire placement into the previously biopsied nodule with removal of that nodule as described above. Dictated by: Karri Cordero MD 09/02/2019 17:30 Electronically signed by Karri Cordero MD in [place] 09/02/2019 17:30
--- NOTE | 2019-09-01 12:55 | HMH.OPNOTE ---
Date of procedure: 09/01/19 Pre-op Diagnosis:: Right breast cancer (mucinous ductal carcinoma) Post-op Diagnosis:: Same Procedure performed:: Needle-localized excisional biopsy of right breast cancer Right axillary sentinel lymph node biopsy Surgeon:: Pawan García MD VEGETABLE TESTER:: Seth Pereraty Anesthesia: GETA Estimated blood loss (mL): 75 Operative findings:: Significant background uptake Multiple tiny nodes deep in axilla (essentially at chest wall) No dominant axillary node radioisotope uptake or by palpation No significant radioisotope uptake of largest lymph node; however, some blue dye uptake noted Radiographic confirmation of complete excision Operative note:: After informed consent was obtained the patient was taken to the radiology department where she underwent placement of the localization needle and injection of radioisotope. Please see radiology report for detail. She was then taken to the operating room and placed in the supine position. General anesthesia was achieved and methylene blue was then injected at the tumor site. Her right breast and axilla were prepped and draped in a sterile fashion. After infiltration local anesthetic an incision was made at the mid axillary margin. This area was noted to have slight increased radioisotope uptake per neoprobe evaluation. A combination of sharp dissection with scalpel and electrocautery was utilized to transect through the deeper tissue. Reevaluation with the neoprobe device confirmed significant background uptake but no single dominant focus. Palpation more deeply revealed tiny lymph nodes very deep within the axilla medially. These were essentially along the chest wall . These were elevated and the largest node was excised. No significant radioisotope uptake noted; however, some blue dye uptake was confirmed. A few additional nodes were from the surrounding tissue and passed off as additional non-sentinel lymph nodes. The overlying adipose tissue was excised and passed off as non-helga axillary tissue. Reevaluation with the neoprobe revealed background only . The wound was thoroughly irrigated. A #7 Jimmy-Ambrocio drain was placed in the wound and secured through a separate stab incision. The deep subcutaneous tissue was reapproximated with interrupted Vicryl and skin was closed with 4-0 Monocryl. Attention was then turned to the breast tissue. A curvilinear incision was made at the areolar margin after infiltration local anesthetic. The deep subcutaneous tissue was sharply dissected. The localization needle was exited through the operative wound. The underlying tissue was carefully elevated. A combination of sharp dissection with curved Riley's and electrocautery was utilized to resect the localized tissue. A small area of firmness along the anterior margin was noted. Excision was taken beyond this point and the entire specimen was excised. It was marked with non-dyed and dyed Vicryl suture for pathologic evaluation. The non-dyed suture was utilized to britt the superficial and deep margins (short superficial/long deep). The suture was utilized to britt the superior lateral margins (short superior/long lateral). Electrocautery was utilized to achieve hemostasis. Metallic clips were placed along the wound base and margin. Radiographic confirmation of appropriate resection was obtained. The deep subcutaneous tissue was reapproximated with interrupted Vicryl and skin was closed with 4-0 Monocryl in a running subcuticular manner. Steri-Strips are all dressings were applied. The patient's anesthetic agents were reversed and she was extubated prior to transfer to recovery. Condition: stable Disposition: PACU Specimens:: Right axillary sentinel lymph node (blue/not hot) Right axillary non-sentinel lymph nodes Additional right axillary tissue Needle-localized excisional biopsy of mucinous ductal carcinoma right breast Complications:: No imm
--- NOTE | 2019-09-01 13:01 | P.PN_ITS ---
[facility] Anesthesia Record Part I Intake, IV Amount: 900 Estimated blood loss (mL): 75 Urine output (mL): 0 Blood Products used (#): none Blood Pressure: 142/69 SaO2: 93 Pulse Rate: 70 Respiratory Rate: 18 Temperature: 98.2 F Patient is:: Drowsy, Stable Stable to PACU at:: 12:57
--- NOTE | 2019-09-01 13:43 | HMH.ANESII ---
[facility] Anesthesia Record Part II Discharge Time: 13:27 Destination: Surgical Day Care (OP Surgery) PACU nurse assessment reviewed?: Yes Patient Condition:: Good Anesthesia Complications:: None Swallowing reflex intact?: Yes Cyanosis?: No Blood Pressure: 152/72 Pulse Rate: 65 Temperature: 98.0 F Mental Status: Alert & Oriented Pain level:: 2 Nausea and/or vomitting:: None Intake, IV Amount: 25
== END 2019-09-01 14:20 | disposition home or self-care (01) ==
LOC: OR 07:03
PROVIDERS: PCP Family Medicine; Visit Provider Surgery
DX: C50.211 Malignant neoplasm of upper-inner quadrant of right female breast (principal); C92.10 Chronic myeloid leukemia, BCR/ABL-positive, not having achieved remission; Z79.899 Other long term (current) drug therapy; E03.9 Hypothyroidism, unspecified; Z17.0 Estrogen receptor positive status [ER+]
CPT/HCPCS: 19120; 38500; 38525; 19285; 38792; 76098; 76642; 77061; 77065; 88305; 88307; 96374; A9541; G0279

== ENCOUNTER → 2019-09-15 14:23 | Outpatient (CLI) | payer MEDICARE, SELFPAY ==
--- NOTE | 2019-09-15 14:29 | XR_ITS ---
PROCEDURE: XR CHEST 2V CLINICAL HISTORY: BREAST CA Shortness of air, history of breast cancer COMPARISON: CXR CHEST(2 VIEWS-NOT PORTABLE) from 07/02/[address] [facility] [address] CHEST W/O CONTRAST from 07/12/2013 Chest from 10/07/2018 FINDINGS: Borderline cardiomegaly without failure. The there is a 2 cm nodule in the right perihilar region which does not appear significantly changed. Bilateral pleural effusions have developed and there are surgical clips projected over the right lower hemithorax. The upper lobes are clear. No acute bony anomaly. IMPRESSION: Interval development of small bilateral pleural effusions. No change in the right perihilar nodule Dictated by: Karri Cordero MD 09/15/2019 16:07 Electronically signed by Karri Cordero MD in [place] 09/15/2019 16:07
== END ==
PROVIDERS: PCP Family Medicine; Visit Provider Internal Medicine Medical Oncology
DX: C50.911 Malignant neoplasm of unspecified site of right female breast (principal)
CPT/HCPCS: 71046

== ENCOUNTER → 2019-09-28 13:46 | Outpatient (CLI) | payer MEDICARE, SELFPAY ==
[2019-09-28 14:42] LABS: Basophils % 0.5 % (0.1-2.0); Eosinophils # 0.4 K/mm3 (0.0-0.4); Eosinophils % 7.3 % (0.1-12.0); Hematocrit 36.2 % (37.0-47.0); Hemoglobin 12.3 g/dL (12.2-16.2); Lymphocytes # 1.2 K/mm3 (0.7-4.5); Lymphocytes % 23.3 % (10-50); Mean Corpuscular Hemoglobin 31.2 pg (27.0-31.2); Mean Corpuscular Volume 91.8 fl (81-99); Mean Platelet Volume 8.6 fl (7.4-10.4); Monocytes # 0.4 K/mm3 (0.1-1.0); Monocytes % 7.3 % (1.7-9.3); Neutrophils # 3.2 K/mm3 (1.8-7.8); Neutrophils % 61.7 % (37.0-80.0); Platelet Count 186 K/mm3 (142-424); Red Blood Count 3.94 M/mm3 (4.20-5.40); Red Cell Distribution Width 14.4 % (11.5-17.5); White Blood Count 5.2 K/mm3 (4.8-10.8)
== END ==
PROVIDERS: Visit Provider Surgery
DX: C50.911 Malignant neoplasm of unspecified site of right female breast (principal)
CPT/HCPCS: 36415; 85025

== ENCOUNTER → 2019-11-11 08:22 | Outpatient (CLI) | payer MEDICARE, SELFPAY ==
--- NOTE | 2019-11-11 08:27 | XR_ITS ---
PROCEDURE: XR HIP LT 2-3V W/PELVIS CLINICAL INDICATION: L HIP PAIN COMPARISON: BONE BONE DENSITOMETRY(HIP:LT SPINE from 06/30/[address] ABD PELVIS W/ CONTRAST from 09/23/2013 FINDINGS: There are mild osteoarthritic changes of the left hip with slight decrease in the joint space osteosclerosis and mild osteophyte formation. No acute fracture or dislocation. There is an area of sclerosis involving the mid aspect of the sacrum on the left and in the symphysis pubis on the left which may represent bone islands. IMPRESSION: Mild osteoarthritis of the left hip Dictated by: Karri Cordero MD 11/11/2019 17:33 Electronically signed by Karri Cordero MD in [place] 11/11/2019 17:33
== END ==
PROVIDERS: PCP Family Medicine; Visit Provider Family Medicine
DX: M25.552 Pain in left hip (principal)
CPT/HCPCS: 73502

== ENCOUNTER 2019-11-24 11:00 | Outpatient (RCR) | payer MEDICARE, SELFPAY ==
--- NOTE | 2019-09-28 14:42 | HMH.PTOPWND ---
Rehab Outpt Wound Evaluation Rehab OP Wound Evaluation Start: 09/28/19 14:07 Freq: Status: Active Protocol: Document 09/28/19 14:37 WILLAM (Rec: 09/28/19 14:42 PHOAGNES [id number]) Electronically Signed By Kem Hannah, PT 09/28/19 14:37 Subjective/History History History Pt is 64 yowf who presents ~ 1 mo S/P R breast lumpectomy with multiple LN removal due to breast cancer. She reports no c/o pain at this time, only numbness in the R axilla since surgery. She reports no feelings of heaviness or tightness in the R UE at this time, but some stiffness with reaching. She reports she will be starting radiation therapy soon. She reports PMH of IGNACIO, thyrpoidectomy, hyperdynamic ventricle. Subjective Subjective No c/o discomfort this date. Lymphedema Eval Classification of Lymphedema Secondary Lymphedema Yes: Stage 0 Post-Surgical Lymphedema Yes Stemmer's sign Stemmer's Sign no Stage of Lymphedema Lymphedema stages Stage 0 (subjective c/o heaviness and aching) Pain Scale Pain Scale (0-10) 0 Affected Extremities Areas Affected by Lymphedema/Edema Right Upper Extremity,Right Breast,Right Axilla Manual Lymphatic Drainage Treatment Area MLD Treatment Area Right Upper Extremity,Right Breast,Right Axilla Wound Problems/Impairments Impairments Problems/Impairmments Impaired Endurance,Impaired Lifting,Impaired Recreational Activities,Increased Edema, Lymphedema Present,Subjective C/O Pain,Impaired Self Care/ Self Management Prognosis Rehab Potential Good Clinical Impression Consistent with Diagnosis Yes Short Term Goals Number of Weeks 4 Patient to be Ind w/ [place] Yes Compression Garments Patient to Understand Lymphedema Yes Treatment and Exercises Decrease Girth Measurments by (cm) Yes: by 5 cm Snf Goals Number of Weeks 8 Patient to be Ind w/ HEP Yes Patient to be Ind w/ Lymphedema Self Yes Massage Technique Patient to Adhere Lymphedema Precautions Yes Decrease Girth Measurments by (cm) Yes: by 15 cm Outpatient Therapy Plan of Care Treatment Plan May Incl
--- NOTE | 2019-11-02 14:07 | HMH.RHREAS ---
Rehab Reassessment Rehab OP Re-assessment Start: 11/02/19 13:59 Freq: Status: Active Protocol: Document 11/02/19 14:00 WILLAM (Rec: 11/02/19 14:05 WILLAM [id number]) Electronically Signed By Kem Hannah, PT 11/02/19 14:00 Rehab Re-assessment Subjective Subjective Pt reports she has been feeling better, but now has a red rash from her radiation treatments around her R breast and axilla. Objective Objective Notes Less fibrotic edema noted in the axillary region, but R breast remains somewhat more hard to palpation than the L. Assessment Progress Assessment Progressing as Expected Assessment Notes Pt with improved mobility and some decrease in edema. Patient goals met ST,2,3 Goals Not Met LT,2,3,4 Revised Goals none Plan Plan Continue per initial POC. Frequency of Therapy 2 x/wk Duration of therapy 8 wks Time and Billing Re-Eval Time 15 Re-Eval Billing Units 1 PHYSICIAN CERTIFICATION: I certify the specified therapy services for Anjali Carlson are required, authorized, and reviewed every 30 days.
== END 2019-11-24 11:48 | disposition home or self-care (01) ==
LOC: PT 11:00
PROVIDERS: PCP Family Medicine; Visit Provider Internal Medicine Medical Oncology
DX: C50.811 Malignant neoplasm of overlapping sites of right female breast (principal)
CPT/HCPCS: 97110; 97140; 97162; 97164; 97760

== ENCOUNTER → 2019-12-07 15:02 | Outpatient (CLI) | payer MEDICARE, SELFPAY ==
[2019-12-07 15:18] LABS: Basophils % 0.7 % (0.1-2.0); Eosinophils # 0.2 K/mm3 (0.0-0.4); Eosinophils % 4.1 % (0.1-12.0); Hematocrit 39.1 % (37.0-47.0); Hemoglobin 12.9 g/dL (12.2-16.2); Lymphocytes # 0.8 K/mm3 (0.7-4.5); Lymphocytes % 19.2 % (10-50); Mean Corpuscular HGB Conc 32.9 g/dL (31.8-35.4); Mean Corpuscular Hemoglobin 31.2 pg (27.0-31.2); Mean Platelet Volume 8.1 fl (7.4-10.4); Monocytes # 0.4 K/mm3 (0.1-1.0); Monocytes % 9.1 % (1.7-9.3); Neutrophils # 2.8 K/mm3 (1.8-7.8); Platelet Count 196 K/mm3 (142-424); Red Blood Count 4.12 M/mm3 (4.20-5.40); Red Cell Distribution Width 14.7 % (11.5-17.5); White Blood Count 4.2 K/mm3 (4.8-10.8)
[2019-12-07 15:47] LABS: Chloride 107 mmol/L (98-107); Potassium 4.6 mmoL/L (3.5-5.1); Sodium 142 mmol/L (136-145)
[2019-12-07 15:49] LABS: Alanine Aminotransferase 22 U/L (12-78); Aspartate Amino Transferase 33 U/L (14-36); Blood Urea Nitrogen 19 mg/dl (7-17); Estimated Glomerular Filt Rate 50 ml/min (>60); GFR (African American) 60 ML/MIN (>60)
[2019-12-07 15:50] LABS: Albumin Level 3.8 g/dl (3.5-5.0); Albumin/Globulin Ratio 1.5 (1.1-1.8); Alkaline Phosphatase 65 U/L (38-126); Anion Gap 11.6 mEq/L (5-15); Bilirubin,Total 0.3 mg/dl (0.2-1.3); Calcium 10.5 mg/dl (8.4-10.2); Carbon Dioxide 28 mmol/L (22.0-30.0); Globulin 2.6 g/dL (1.3-3.2); Glucose 82 mg/dl (74-100); Total Protein,Serum 6.4 g/dl (6.3-8.2)
== END ==
PROVIDERS: Visit Provider Internal Medicine Medical Oncology
DX: C92.10 Chronic myeloid leukemia, BCR/ABL-positive, not having achieved remission (principal)
CPT/HCPCS: 36415; 80053; 81206; 85025

== ENCOUNTER → 2019-12-23 09:04 | Outpatient (CLI) | payer MEDICARE, SELFPAY ==
--- NOTE | 2019-12-23 09:08 | XR_ITS ---
PROCEDURE: XR DEXA AXIAL SKELETON CLINICAL HISTORY: BREAST CA,POST MENOPAUSAL COMPARISON: No exams were available for comparison FINDINGS: The right hip BMD is 0.904 grams/centimeter squared with a t-score of -0.3 The left hip BMD is 0.788 grams/centimeter squared with a t-score of -1.3. The lumbar spine BMD is 0.972 grams/centimeter squared with a t-score of -0.7. IMPRESSION: T-score values in the osteopenia range for bilateral hips and lumbar spine, consider a follow-up study in approximately 2 years Dictated by: Dr. Andriy Singleton MD 12/23/2019 09:45 Dr. Andriy Singleton MD in [place] 12/23/2019 09:45
--- NOTE | 2019-12-23 09:08 | XR_ITS ---
PROCEDURE: XR CHEST 2V CLINICAL HISTORY: BREAST CA COMPARISON: CR XR CHEST 2V from 09/15/2019 FINDINGS: The cardiomediastinal silhouette and pulmonary vascularity are within normal limits. There has been definite interval increase in size of the bilateral pleural effusions, larger right side than left. The right perihilar nodule is again noted with very little if any interval change in size from the previous chest film. There remainder of the right lung field is clear in left lung field is clear. There is minimal bilateral basilar atelectasis. No acute bony abnormalities. IMPRESSION: No acute findings. In size of the bilateral pleural effusions fluid on the right side is up to the level of the right hilum just below the right perihilar nodule Dictated by: Dr. Andriy Singleton MD 12/23/2019 09:56 Dr. Andriy Singleton MD in [place] 12/23/2019 09:56
== END ==
PROVIDERS: PCP Family Medicine; Visit Provider Internal Medicine Medical Oncology
DX: C50.911 Malignant neoplasm of unspecified site of right female breast (principal); M85.89 Other specified disorders of bone density and structure, multiple sites
CPT/HCPCS: 71046; 77080

== ENCOUNTER → 2020-01-27 10:52 | Outpatient (CLI) | payer MEDICARE, SELFPAY ==
--- NOTE | 2020-01-27 11:02 | XR_ITS ---
PROCEDURE: XR CHEST 2V CLINICAL HISTORY: SOB Breast cancer COMPARISON: CT [facility] CT CHEST W/O CONTRAST from 07/12/2013 CR Chest from 10/07/2018 CR XR CHEST 2V from 09/15/2019 DX XR CHEST 2V from 12/23/2019 FINDINGS: The cardiomediastinal silhouette and pulmonary vascularity are within normal limits. There is an enlarging right pleural effusion with right basilar atelectasis. Previously there was a nodular opacity in the right infrahilar region. This may be obscured by the enlarging effusion. Small left effusion with left basilar atelectasis is also noted to the left effusion also is slightly larger. Upper lobes are clear. No acute bony abnormalities. IMPRESSION: Medium-sized right pleural effusion increased in size slightly from the previous study with small left pleural effusion also slightly increased. Bibasilar atelectasis Dictated by: Karri Cordero MD 01/27/2020 16:11 Karri Cordero MD in [place] 01/27/2020 16:11
== END ==
PROVIDERS: PCP Family Medicine; Visit Provider Family Medicine
DX: R06.02 Shortness of breath (principal)
CPT/HCPCS: 71046

== ENCOUNTER → 2020-01-30 10:52 | Outpatient (CLI) | payer MEDICARE, SELFPAY ==
[2020-01-30 11:01] VITALS: BMI 30.1
--- NOTE | 2020-01-30 11:21 | US_ITS ---
PROCEDURE: US THORACENTESIS CLINICAL INDICATION: PLEURAL EFFUSION, SOB, ORTHOPNEA COMPARISON: CR XR CHEST 2V from 01/30/2020 CR XR CHEST 2V from 01/30/2020 TECHNIQUE: Time-out procedure and informed consent obtained prior to the exam. After appropriate Time out, under aseptic conditions and local anesthesia with 1% buffered lidocaine using sonographic guidance a 6 Marshallese Tuao-M-Oyfpupzp catheter was inserted into right-sided pleural effusion Approximately 2200 mL of blood tinged fluid was drained. The patient tolerated the procedure well and left the radiology suite in stable condition. Initial post thoracentesis radiograph demonstrated a question of a small right-sided pneumothorax. This however was uncertain. Follow-up exam did not demonstrate any pneumothorax. FINDINGS: Right-sided pleural effusion The fluid was sent for laboratory analysis which is unavailable at the time of this reading. IMPRESSION: Successful sonographic guided right-sided thoracentesis without complication. Dictated by: Karri Cordero MD 02/14/2020 12:54 Karri Cordero MD in [place] 02/14/2020 12:54
--- NOTE | 2020-01-30 12:10 | XR_ITS ---
PROCEDURE: XR CHEST 2V CLINICAL HISTORY: POST THOROCENTISIS COMPARISON: CT [facility] CT CHEST W/O CONTRAST from 07/12/2013 CR XR CHEST 2V from 09/15/2019 DX XR CHEST 2V from 12/23/2019 CR XR CHEST 2V from 01/27/2020 FINDINGS: There has been marked reduction in the size of the right pneumothorax. There may be a small right apical pneumothorax with small lateral component. Follow-up is suggested. 3 cm right hilar nodule is present.. There is a small left pleural effusion with left basilar atelectasis. IMPRESSION: Status post right-sided thoracentesis with marked reduction in size of the right pleural effusion with possible right apical pneumothorax. 3 cm nodule in the right hilum. Dictated by: Karri Cordero MD 01/30/2020 12:55 Karri Cordero MD in [place] 01/30/2020 12:55
[2020-01-30 12:44] LABS: Appearance,Body Fld. Hazy; Source, Body Fld. Thoracentesis Fluid; TNC,Body Fluid 2451 cells/uL (< 1000); Volume,Body Fld. 60 mL
[2020-01-30 12:45] LABS: RBC,Body Fluid 36 cells/uL (< 10 X 10^3)
[2020-01-30 12:55] LABS: Chloride 106 mmol/L (98-107); Sodium 140 mmol/L (136-145)
[2020-01-30 12:56] LABS: Potassium 4.1 mmoL/L (3.5-5.1)
[2020-01-30 12:58] LABS: Alanine Aminotransferase 25 U/L (12-78); Alkaline Phosphatase 73 U/L (38-126); Anion Gap 12.1 mEq/L (5-15); Aspartate Amino Transferase 39 U/L (14-36); Bilirubin,Total 0.4 mg/dl (0.2-1.3); Blood Urea Nitrogen 15 mg/dl (7-17); Carbon Dioxide 26 mmol/L (22.0-30.0); Creatinine Clearance Estimated 82 mL/min (50-200); Estimated Glomerular Filt Rate 55 ml/min (>60); GFR (African American) 67 ML/MIN (>60)
[2020-01-30 12:59] LABS: Albumin Level 4.2 g/dl (3.5-5.0); Albumin/Globulin Ratio 1.4 (1.1-1.8); Calcium 10.8 mg/dl (8.4-10.2); Glucose 103 mg/dl (74-100); Total Protein,Serum 7.2 g/dl (6.3-8.2)
[2020-01-30 13:20] LABS: Lactate Dehydrogenase 217 U/L (313-618)
[2020-01-30 14:21] LABS: Mononuclear WBCs,Body Fluid 100 %; Polynuclear WBC,Body Fluid 0 %
--- NOTE | 2020-01-30 15:00 | XR_ITS ---
PROCEDURE: XR CHEST 2V CLINICAL HISTORY: Follow-up thoracentesis COMPARISON: CT [facility] CT CHEST W/O CONTRAST from 07/12/2013 DX XR CHEST 2V from 12/23/2019 CR XR CHEST 2V from 01/27/2020 CR XR CHEST 2V from 01/30/2020 FINDINGS: No evidence of pneumothorax. There is a question of a pneumothorax previously but this is no longer present. There is increased density in the right lower lobe which is developed in the interval and may be related to re-expansion edema. Left lower lobe consolidation with effusion noted as before. IMPRESSION: No evidence of pneumothorax status post thoracentesis with re-expansion edema in the right lower lobe, no change left sided effusion with volume loss/consolidation Dictated by: Karri Cordero MD 01/30/2020 16:53 Karri Cordero MD in [place] 01/30/2020 16:53
[2020-01-31 15:21] LABS: Albumin, Body Fluid 3.3 g/dL (Not Estab.); Glucose, Body Fluid 113 mg/dL (.); LD, Body Fluid 155 IU/L (.); Protein, Body Fluid 4.6 g/dL (.)
== END ==
PROVIDERS: PCP Family Medicine; Visit Provider Family Medicine
DX: J90 Pleural effusion, not elsewhere classified (principal); R06.02 Shortness of breath; R06.01 Orthopnea
CPT/HCPCS: 32555; 36415; 71046; 80053; 82042; 82945; 83615; 84155; 89051

== ENCOUNTER → 2020-01-31 11:09 | Outpatient (CLI) | payer MEDICARE, SELFPAY ==
--- NOTE | 2020-01-31 11:18 | XR_ITS ---
PROCEDURE: XR CHEST 2V CLINICAL HISTORY: RULE OUT PNEUMOTHORAX Follow-up thoracentesis COMPARISON: CT [facility] CT CHEST W/O CONTRAST from 07/12/2013 CR XR CHEST 2V from 01/27/2020 CR XR CHEST 2V from 01/30/2020 CR XR CHEST 2V from 01/30/2020 FINDINGS: The cardiomediastinal silhouette and pulmonary vascularity are within normal limits. Right hilar nodules once again noted. There is no evidence of pneumothorax. There remains some increased density in the right lung base which could be related to infiltrate atelectasis or re-expansion edema with small right pleural effusion. Left-sided pleural effusion with consolidation is once again noted. No acute bony anomalies. IMPRESSION: No evidence of pneumothorax. Right lower lobe atelectasis or infiltrate versus re-expansion edema with no change in the right infrahilar nodule in small right pleural effusion along with left lower lobe consolidation with effusion. Dictated by: Karri Cordero MD 01/31/2020 11:48 Karri Cordero MD in [place] 01/31/2020 11:48
== END ==
PROVIDERS: PCP Family Medicine; Visit Provider Radiology Diagnostic Radiology
DX: J90 Pleural effusion, not elsewhere classified (principal); R06.02 Shortness of breath; R06.01 Orthopnea
CPT/HCPCS: 71046

== ENCOUNTER → 2020-02-13 11:14 | Outpatient (CLI) | payer MEDICARE, SELFPAY ==
--- NOTE | 2020-02-13 11:19 | XR_ITS ---
PROCEDURE: XR CHEST 2V CLINICAL HISTORY: RECURRENT PLEURAL EFFUSION ON RIGHT COMPARISON: CT [facility]WO CT CHEST W/O CONTRAST from 07/12/2013 CR XR CHEST 2V from 01/27/2020 CR XR CHEST 2V from 01/30/2020 CR XR CHEST 2V from 01/30/2020 CR XR CHEST 2V from 01/31/2020 FINDINGS: The cardiomediastinal silhouette and pulmonary vascularity are within normal limits. There has been recurrence of right-sided pleural effusion with atelectatic changes in the right lower lobe. The effusion is estimated to be approximately the same size compared to the pre thoracentesis exam of 01/27/2020. Atelectatic changes are present in the right lung base. There is a small left effusion with mild left basilar atelectasis. IMPRESSION: Recurrence medium-sized right pleural effusion Dictated by: Karri Cordero MD 02/13/2020 11:50 Karri Cordero MD in [place] 02/13/2020 11:50
== END ==
PROVIDERS: PCP Family Medicine; Visit Provider Family Medicine
DX: J90 Pleural effusion, not elsewhere classified (principal)
CPT/HCPCS: 71046

== ENCOUNTER → 2020-02-15 10:26 | Outpatient (CLI) | payer MEDICARE, SELFPAY ==
--- NOTE | 2020-02-15 10:31 | US_ITS ---
PROCEDURE: US THORACENTESIS CLINICAL INDICATION: PLEURAL EFFUSION, SOB, ORTHOPNEA Recurrence pleural effusion COMPARISON: No exams were available for comparison TECHNIQUE: Informed consent was obtain prior to procedure. After appropriate Time out, under aseptic conditions and local anesthesia with 1% buffered lidocaine using sonographic guidance a 6 [place] Ldgq-B-Gpsrkmaz catheter was inserted into the right posterior hemithorax in the midclavicular line inferiorly Approximately 2100 mL blood-tinged fluid was drained. The patient tolerated the procedure well and left the radiology suite in stable condition. Post thoracentesis radiograph showed no evidence of pneumothorax. FINDINGS: Moderate-sized right pleural effusion IMPRESSION: Successful sonographic guided right-sided thoracentesis without complication. Dictated by: Karri Cordero MD 02/15/2020 18:10 Karri Cordero MD in [place] 02/15/2020 18:10
--- NOTE | 2020-02-15 11:58 | XR_ITS ---
PROCEDURE: XR CHEST 2V CLINICAL HISTORY: POST RT SIDED THOROCENTISIS Follow-up thoracentesis COMPARISON: CR XR CHEST 2V from 02/13/2020 FINDINGS: Status post right-sided thoracentesis with marked reduction in size of the right pleural effusion. No evidence of pneumothorax no significant effusion apparent on the right at this time. Atelectatic changes are present in the infrahilar region. There is a small left effusion with left basilar consolidation or atelectatic change. Unremarkable cardiovascular structures. The lungs are clear. No acute bony abnormalities. IMPRESSION: Status post right thoracentesis with no evidence of pneumothorax with no residual effusion on the right. Atelectatic changes are present in the right infrahilar region. There is a small left pleural effusion with left basilar consolidation and/or atelectatic change Dictated by: Karri Cordero MD 02/15/2020 12:42 Karri Cordero MD in [place] 02/15/2020 12:42
--- NOTE | 2020-02-15 15:30 | XR_ITS ---
PROCEDURE: XR CHEST 2V CLINICAL HISTORY: POST THORO, ON EXPIRATION COMPARISON: CT [facility] CT CHEST W/O CONTRAST from 07/12/2013 CR XR CHEST 2V from 01/31/2020 CR XR CHEST 2V from 02/13/2020 DX XR CHEST 2V from 02/15/2020 FINDINGS: No evidence of pneumothorax status post right-sided thoracentesis. Atelectatic changes are present in the right lung base. There is increasing density in the right lower lobe consistent with re-expansion edema. Small left effusion with left basilar atelectasis/consolidation once again noted. IMPRESSION: No evidence of pneumothorax. Right basilar re-expansion edema with atelectasis, left effusion with left basilar atelectasis or consolidation. Dictated by: Karri Cordero MD 02/15/2020 15:45 Karri Cordero MD in [place] 02/15/2020 15:45
[2020-02-17 09:52] LABS: Appearance,Body Fld. Hazy; Source, Body Fld. PLEURAL
[2020-02-17 09:55] LABS: Mononuclear WBCs,Body Fluid 20 %; Polynuclear WBC,Body Fluid 78 %; RBC,Body Fluid 21000 cells/uL (< 10 X 10^3); TNC,Body Fluid 1731 cells/uL (< 1000)
== END ==
PROVIDERS: PCP Family Medicine; Visit Provider Family Medicine
DX: J90 Pleural effusion, not elsewhere classified (principal); R06.02 Shortness of breath; R06.01 Orthopnea
CPT/HCPCS: 32555; 71046; 89051

== ENCOUNTER → 2020-02-28 16:30 | Outpatient (CLI) | payer MEDICARE, SELFPAY | PROVIDERS: Visit Provider Obstetrics & Gynecology | DX: L02.91 Cutaneous abscess, unspecified (principal); N90.7 Vulvar cyst | CPT/HCPCS: 87070; 87077; 87186; 87205 ==

== ENCOUNTER → 2020-03-02 14:15 | Outpatient (CLI) | payer MEDICARE, SELFPAY ==
--- NOTE | 2020-03-02 14:15 | MM_ITS ---
PROCEDURE: MM DIG MAMM DX UNILAT LT CAD Digital Breast Tomosynthesis Included CLINICAL INDICATION: Dx Mamm Left breast- Hx of breast cancer R breast Discoloration of left breast. COMPARISON: MG PB MAMM SCREEN BILAT DIG PNL from 03/02/2013 MG PB MAMM SCREEN BILAT DIG PNL from 05/24/2014 MG MM DIG SCREENING MAMM BI W/CAD from 06/28/2019 MG MM DIG MAMM DX UNILAT RT CAD from 07/13/2019 MG MM DX IMPLANT RT W/[place] from 08/11/2019 MG MM DIG MAMM DX UNILAT RT CAD from 09/01/2019 MG MM SURGICAL SPECIMEN RT from 09/01/2019 TECHNIQUE: Standard CC and MLO images and 3D Tomosynthesis was obtained. R2 CAD reviewed. FINDINGS: There is average fibroglandular tissue. No malignant appearing mass or malignant-appearing microcalcification is evident. There is mild diffuse skin thickening of the left breast. IMPRESSION: There is mild skin thickening of the left breast which is nonspecific. Edema or inflammation is a consideration. Please correlate clinically as to any possible central area of obstruction in the axillary region BI-RAD Category: 2 Benign Finding(s) FOLLOW-UP: Correlation with clinical findings are needed. Mild skin thickening may be seen with CHF, edema, infection, or axillary obstruction from adenopathy. (A letter has been sent to the patient regarding results of the study.) Dictated by: Karri Cordero MD 03/08/2020 13:32 Karri Cordero MD in [place] 03/08/2020 13:32
== END ==
PROVIDERS: PCP Family Medicine; Visit Provider Obstetrics & Gynecology
DX: Z85.3 Personal history of malignant neoplasm of breast (principal)
CPT/HCPCS: 77061; 77065; G0279

== ENCOUNTER → 2020-03-06 09:24 | Outpatient (CLI) | payer MEDICARE, SELFPAY ==
[2020-03-06 09:50] LABS: Basophils % 0.5 % (0.1-2.0); Eosinophils # 0.2 K/mm3 (0.0-0.4); Eosinophils % 2.6 % (0.1-12.0); Hematocrit 45.7 % (37.0-47.0); Hemoglobin 14.9 g/dL (12.2-16.2); Lymphocytes % 14.7 % (10-50); Mean Corpuscular HGB Conc 32.5 g/dL (31.8-35.4); Mean Corpuscular Hemoglobin 30.7 pg (27.0-31.2); Mean Corpuscular Volume 94.3 fl (81-99); Mean Platelet Volume 8.4 fl (7.4-10.4); Monocytes # 0.5 K/mm3 (0.1-1.0); Neutrophils # 4.9 K/mm3 (1.8-7.8); Neutrophils % 74.3 % (37.0-80.0); Platelet Count 251 K/mm3 (142-424); Red Blood Count 4.84 M/mm3 (4.20-5.40); Red Cell Distribution Width 13.9 % (11.5-17.5); White Blood Count 6.6 K/mm3 (4.8-10.8)
[2020-03-06 10:04] LABS: Chloride 106 mmol/L (98-107); Sodium 139 mmol/L (136-145)
[2020-03-06 10:05] LABS: Potassium 4.1 mmoL/L (3.5-5.1)
[2020-03-06 10:07] LABS: Alanine Aminotransferase 18 U/L (12-78); Albumin Level 4.1 g/dl (3.5-5.0); Albumin/Globulin Ratio 1.5 (1.1-1.8); Alkaline Phosphatase 62 U/L (38-126); Anion Gap 10.1 mEq/L (5-15); Aspartate Amino Transferase 29 U/L (14-36); Bilirubin,Total 0.4 mg/dl (0.2-1.3); Blood Urea Nitrogen 17 mg/dl (7-17); Carbon Dioxide 27 mmol/L (22.0-30.0); Estimated Glomerular Filt Rate 55 ml/min (>60); GFR (African American) 67 ML/MIN (>60); Globulin 2.7 g/dL (1.3-3.2); Total Protein,Serum 6.8 g/dl (6.3-8.2)
[2020-03-06 10:08] LABS: Calcium 10.7 mg/dl (8.4-10.2); Glucose 91 mg/dl (74-100)
== END ==
PROVIDERS: PCP Family Medicine; Visit Provider Internal Medicine Medical Oncology
DX: C50.912 Malignant neoplasm of unspecified site of left female breast (principal); C92.11 Chronic myeloid leukemia, BCR/ABL-positive, in remission
CPT/HCPCS: 36415; 80053; 81206; 85025

== ENCOUNTER → 2020-03-08 14:18 | Outpatient (CLI) | payer MEDICARE, SELFPAY ==
--- NOTE | 2020-03-08 14:23 | XR_ITS ---
PROCEDURE: XR CHEST 2V CLINICAL HISTORY: FLUID BUILD UP shortness of breath COMPARISON: CR XR CHEST 2V from 02/15/2020 FINDINGS: There is increasing right-sided pleural effusion with right basilar atelectasis. There is a small left pleural effusion. Bibasilar atelectasis is noted. IMPRESSION: Recurrence right pleural effusion with right basilar atelectasis with small left effusion and mild left basilar atelectasis. Dictated by: Karri Cordero MD 03/08/2020 15:19 Karri Cordero MD in [place] 03/08/2020 15:19
== END ==
PROVIDERS: PCP Family Medicine; Visit Provider Internal Medicine Medical Oncology
DX: C50.911 Malignant neoplasm of unspecified site of right female breast (principal); Z17.0 Estrogen receptor positive status [ER+]
CPT/HCPCS: 71046

== ENCOUNTER → 2020-03-15 10:48 | Outpatient (CLI) | payer MEDICARE, SELFPAY ==
[2020-03-15 12:56] LABS: Blood Urea Nitrogen 16 mg/dl (7-17); Estimated Glomerular Filt Rate 55 ml/min (>60); GFR (African American) 67 ML/MIN (>60)
== END ==
PROVIDERS: Visit Provider Surgery
DX: Z01.818 Encounter for other preprocedural examination (principal)
CPT/HCPCS: 36415; 82565; 84520

== ENCOUNTER → 2020-03-20 10:15 | Outpatient (CLI) | payer MEDICARE, SELFPAY ==
--- NOTE | 2020-03-20 10:16 | CT_ITS ---
PROCEDURE: CT CHEST W CON CLINCAL INDICATION: Rt breast cancer/ left breast edema Edema and discoloration of the left breast, recurrence pleural effusions COMPARISON: CT [facility] CT CHEST W/O CONTRAST from 07/12/[address] ABD PELVIS W/ CONTRAST from 09/23/2013 TECHNIQUE: IV Contrast: 75ml Isovue 370 Axial images obtained with sagittal and coronal reformats. All CT scans at the facility use one or more dose reduction, viz: automated exposure control, ma/kV adjustment per patient size (including targeted exams where dose is matched to indication, i.e. head), or iterative reconstruction technique. FINDINGS: HEART AND MEDIASTINAL STRUCTURES: No mediastinal or hilar mass or adenopathy. No evidence of aortic aneurysm or dissection. No evidence of central pulmonary embolus. LUNGS AND PLEURAL SPACES: There is a moderate to large size right pleural effusion. Consolidation/collapse noted in the right middle lobe and right lower lobe. The superior segment of the right lower lobe is aerated. There is a 2 by 1.4 cm nodule within the superior segment of the right lower lobe. This nodule was present on 07/12/2013 and not significantly changed in size. There is a small focus of calcification or central enhancement is present now within the nodule. There is a moderate to large size right pleural effusion and a small left pleural effusion. Atelectatic changes are present in the left lower lobe from the effusion. The in the subpleural region in the superior segment of the right lower lobe there is an area of nodularity. This is nonspecific measuring approximately 1 cm and may only be due to some subpleural atelectatic change. A similar density is present in the superior segment of the left lower lobe both of these are on image 44 series 3. No obvious enhancing pleural implants. There is dense consolidation within the right upper lobe medially. While this could be due to lung collapse, it there is a somewhat rounded contour. This area measures approximately 3 cm. One cannot exclude the possibility of a mass at this region. This does abut the major fissure and may in part also extending into the right middle lobe. If the patient has a thoracentesis, would recommend repeating the exam to see if this represents collapse lung or if it persists following thoracentesis. Alternatively, bronchoscopy may provide further evaluation as well. BONY STRUCTURES: No acute bony abnormalities apparent. UPPER ABDOMEN: There are multiple hypodense lesions of the liver measuring up to 3.7 cm in segment 6 previously measuring 2.4 cm. The next largest lesion is in segment 7 at 1.9 cm previously 1.4 cm. These may be related to hepatic cyst. Ultrasound may confirm. ADDITIONAL FINDINGS: There has been a prior right-sided lumpectomy. Within the medial and inferior aspect of the right breast there is a well-circumscribed fluid collection measuring 5 by 2.3 cm and may represent a postoperative seroma. No axillary adenopathy is evident. There is mild skin thickening involving the right breast which may be due to radiation changes. IMPRESSION: 1. Bilateral pleural effusions moderate to large on the right and small on the left. Left basilar atelectatic changes. 2. Consolidation/volume loss is present in the inferior aspect of the right lower lobe. There is collapse of the right middle lobe and of most of the right lower lobe. 3. Oval area of soft tissue density noted in the inferior aspect of the right upper lobe/superior aspect right middle lobe. While this could be related to densely consolidated lung, 1 cannot exclude the possibility of a mass. Consider follow-up exam after thoracentesis to see if this re expands. Alternatively, bronchoscopy may provide
== END ==
PROVIDERS: PCP Family Medicine; Visit Provider Surgery
DX: L53.9 Erythematous condition, unspecified (principal); C50.911 Malignant neoplasm of unspecified site of right female breast; R60.0 Localized edema
CPT/HCPCS: 71260; Q9967

== ENCOUNTER → 2020-03-21 11:49 | Outpatient (CLI) | payer MEDICARE, SELFPAY ==
[2020-03-21 12:35] LABS: Basophils % 0.3 % (0.1-2.0); Eosinophils # 0.1 K/mm3 (0.0-0.4); Eosinophils % 2.6 % (0.1-12.0); Hematocrit 45.4 % (37.0-47.0); Hemoglobin 14.8 g/dL (12.2-16.2); Lymphocytes # 0.7 K/mm3 (0.7-4.5); Lymphocytes % 13.2 % (10-50); Mean Corpuscular HGB Conc 32.6 g/dL (31.8-35.4); Mean Corpuscular Hemoglobin 30.7 pg (27.0-31.2); Mean Platelet Volume 8.3 fl (7.4-10.4); Monocytes # 0.4 K/mm3 (0.1-1.0); Monocytes % 6.8 % (1.7-9.3); Neutrophils # 3.9 K/mm3 (1.8-7.8); Platelet Count 258 K/mm3 (142-424); Red Blood Count 4.83 M/mm3 (4.20-5.40); Red Cell Distribution Width 13.7 % (11.5-17.5); White Blood Count 5.1 K/mm3 (4.8-10.8)
[2020-03-21 13:46] LABS: Activated Partial Thrombo Time 23.3 seconds (23.6-34.0); INR 0.92 (0.9-1.1); Prothrombin Time 10.3 seconds (9.4-11.8)
[2020-03-21 13:51] LABS: Chloride 105 mmol/L (98-107); Potassium 4.7 mmoL/L (3.5-5.1); Sodium 138 mmol/L (136-145)
[2020-03-21 13:54] LABS: Blood Urea Nitrogen 17 mg/dl (7-17); Estimated Glomerular Filt Rate 55 ml/min (>60); GFR (African American) 67 ML/MIN (>60)
[2020-03-21 13:55] LABS: Anion Gap 10.7 mEq/L (5-15); Calcium 10.9 mg/dl (8.4-10.2); Carbon Dioxide 27 mmol/L (22.0-30.0); Glucose 101 mg/dl (74-100)
== END ==
PROVIDERS: Visit Provider Surgery
DX: J40 Bronchitis, not specified as acute or chronic (principal); L53.9 Erythematous condition, unspecified; Z51.81 Encounter for therapeutic drug level monitoring
CPT/HCPCS: 36415; 80048; 85025; 85610; 85730

== ENCOUNTER → 2020-03-26 09:03 | Outpatient (CLI) | payer MEDICARE, SELFPAY ==
--- NOTE | 2020-03-26 | XR_ITS ---
PROCEDURE: XR CHEST 2V CLINICAL HISTORY: EXPIRATION FOR POST-THORACENTESIS, pleural effusion COMPARISON: DX XR CHEST 2V from 02/15/2020 CR XR CHEST 2V from 02/15/2020 DX XR CHEST 2V from 03/08/[address] CHEST W CON from 03/20/2020 FINDINGS: Status post right-sided thoracentesis with marked decrease in size of the right pleural effusion. There are residual atelectatic changes in the right perihilar region and right lower lobe. There is a small left pleural effusion. There is increased density in the left lower lobe likely related to atelectatic changes from the expiration film and the left-sided pleural effusion. Upper lobes are clear. No acute bony abnormalities. IMPRESSION: Status post right-sided thoracentesis with no appreciable effusion evident on the right with residual atelectatic changes in the right perihilar region and right lower lobe with small left effusion and left lower lobe atelectasis. No evidence of pneumothorax Dictated by: Karri Cordero MD 03/26/2020 11:41 Karri Cordero MD in [place] 03/26/2020 11:41
--- NOTE | 2020-03-26 09:04 | CT_ITS ---
PROCEDURE: CT CHEST W CON CLINCAL INDICATION: following thoracentesis Recurrence bloody pleural effusion with follow-up of previous abnormal chest CT. History of breast cancer. S/P THORACENTESIS RIGHT SIDE LUNG ABNORMALTY COMPARISON: CT [facility] CT CHEST W/O CONTRAST from 07/12/[address] CHEST W CON from 03/20/2020 TECHNIQUE: IV Contrast: 75ml Isovue 370 Axial images obtained with sagittal and coronal reformats. All CT scans at the facility use one or more dose reduction, viz: automated exposure control, ma/kV adjustment per patient size (including targeted exams where dose is matched to indication, i.e. head), or iterative reconstruction technique. FINDINGS: HEART AND MEDIASTINAL STRUCTURES: No mediastinal or hilar mass or adenopathy. No evidence of aortic aneurysm or dissection or pulmonary embolus. LUNGS AND PLEURAL SPACES: There is a nodule in the right lower lobe 2.3 x 1.6 cm. This has been present dating back to 07/12/2013 overall not significantly changed. There are couple small focal areas of increased density within the nodule suggesting small foci of calcifications. There is a calcified granuloma in the right upper lobe. Previously there was a moderate-sized right pleural effusion with an oval area of soft tissue density in the right middle lobe/right upper lobe junction which was question as a possible pulmonary mass. This is no longer apparent and was secondary to rounded atelectasis or consolidation. This exam was performed following right-sided thoracentesis. There is no evidence of pneumothorax. Atelectatic changes are present in the right middle lobe laterally. There are mild atelectatic changes in the right lower lobe. There is a small left pleural effusion with left lower lobe atelectasis. Left pleural effusion is slightly larger compared to 03/20/2020 BONY STRUCTURES: Degenerative changes are present in the thoracic spine UPPER ABDOMEN: There are multiple hypodensities within the liver consistent with hepatic cysts. Left adrenal gland is slightly prominent nonspecific. ADDITIONAL FINDINGS: Status post right breast surgery. There is an oval area of fluid density in the right breast at 3.7 x 2.2 cm consistent with postoperative seroma IMPRESSION: 1. Status post right-sided thoracentesis with marked decrease in size of right pleural effusion with no evidence of pneumothorax. Scattered atelectatic changes are present on the right. 2. Previously noted oval soft tissue density at the junction of the right middle and right upper lobe is no longer apparent and was related to either rounded pneumonia or rounded atelectasis. 3. No change in the 2.3 cm right lower lobe pulmonary nodule. 4. There is a small to medium-sized left pleural effusion with left lower lobe atelectatic changes. 5. Other nonacute findings as described above. Dictated by: Karri Cordero MD 03/27/2020 12:32 Karri Cordero MD in [place] 03/27/2020 12:32
--- NOTE | 2020-03-26 09:08 | US_ITS ---
PROCEDURE: US THORACENTESIS CLINICAL INDICATION: Rt side fluid in lungs COMPARISON: No exams were available for comparison FINDINGS: Following obtaining informed consent under aseptic conditions and local anesthesia with 1 percent lidocaine under sonographic guidance and time-out procedure, a 6 [place] Bnot-N-Xnkfqmde catheter was inserted into the posterior axillary line in the lower hemithorax on the right into the largest pocket of fluid. 2060 mL of blood-tinged fluid was withdrawn. The patient tolerated there is change a well without evidence of immediate complication. A sample of the fluid was sent the laboratory for analysis including cytology. Post thoracentesis radiograph showed no evidence of pneumothorax. Two are post thoracentesis CT scan also showed no evidence of pneumothorax. Cytology: Negative for malignancy. Benign reactive mesothelioma cells and chronic inflammatory cells within a serous background IMPRESSION: Uneventful ultrasound-guided right thoracentesis as described above. Dictated by: Karri Cordero MD 03/27/2020 17:14 Karri Cordero MD in [place] 03/27/2020 17:14
[2020-03-26 09:18] VITALS: BMI 29.4
[2020-03-26 14:38] LABS: RBC,Body Fluid 17 cells/uL (< 10 X 10^3); Source, Body Fld. Thoracentesis Fluid; TNC,Body Fluid 1261 cells/uL (< 1000); Volume,Body Fld. 2060 mL
[2020-03-26 14:55] LABS: Mononuclear WBCs,Body Fluid 97 %; Polynuclear WBC,Body Fluid 3 %
[2020-03-27 11:21] LABS: Albumin, Body Fluid 3.2 g/dL (Not Estab.); Glucose, Body Fluid 110 mg/dL (.); LD, Body Fluid 118 IU/L (.); Protein, Body Fluid 4.7 g/dL (.)
== END ==
PROVIDERS: PCP Family Medicine; Visit Provider Surgery
DX: R93.89 Abnormal findings on diagnostic imaging of other specified body structures (principal); J18.9 Pneumonia, unspecified organism; J94.8 Other specified pleural conditions; J90 Pleural effusion, not elsewhere classified; C92.10 Chronic myeloid leukemia, BCR/ABL-positive, not having achieved remission
CPT/HCPCS: 32555; 71046; 71260; 82042; 82945; 83615; 84155; 87070; 87077; 87186; 87205; 88112; 88305; 89051; Q9967

== ENCOUNTER → 2020-06-01 15:13 | Outpatient (CLI) | payer MEDICARE, SELFPAY ==
[2020-06-01 15:58] LABS: Basophils % 0.3 % (0.1-2.0); Eosinophils # 0.1 K/mm3 (0.0-0.4); Eosinophils % 2.4 % (0.1-12.0); Hematocrit 42.6 % (37.0-47.0); Hemoglobin 14.1 g/dL (12.2-16.2); Lymphocytes # 0.9 K/mm3 (0.7-4.5); Lymphocytes % 16.1 % (10-50); Mean Corpuscular HGB Conc 33.2 g/dL (31.8-35.4); Mean Corpuscular Hemoglobin 29.6 pg (27.0-31.2); Mean Corpuscular Volume 89.1 fl (81-99); Mean Platelet Volume 8.1 fl (7.4-10.4); Monocytes # 0.4 K/mm3 (0.1-1.0); Monocytes % 6.8 % (1.7-9.3); Neutrophils % 74.3 % (37.0-80.0); Platelet Count 255 K/mm3 (142-424); Red Blood Count 4.78 M/mm3 (4.20-5.40); Red Cell Distribution Width 14.3 % (11.5-17.5); White Blood Count 5.4 K/mm3 (4.8-10.8)
[2020-06-01 16:04] LABS: Chloride 106 mmol/L (98-107); Potassium 4.4 mmoL/L (3.5-5.1); Sodium 139 mmol/L (136-145)
[2020-06-01 16:06] LABS: Alanine Aminotransferase 18 U/L (12-78); Alkaline Phosphatase 73 U/L (38-126); Aspartate Amino Transferase 25 U/L (14-36); Bilirubin,Total 0.3 mg/dl (0.2-1.3); Blood Urea Nitrogen 20 mg/dl (7-17); Estimated Glomerular Filt Rate 45 ml/min (>60); GFR (African American) 54 ML/MIN (>60)
[2020-06-01 16:07] LABS: Albumin Level 4.4 g/dl (3.5-5.0); Albumin/Globulin Ratio 1.5 (1.1-1.8); Anion Gap 12.4 mEq/L (5-15); Calcium 11.1 mg/dl (8.4-10.2); Carbon Dioxide 25 mmol/L (22.0-30.0); Glucose 114 mg/dl (74-100); Total Protein,Serum 7.4 g/dl (6.3-8.2)
[2020-06-04 15:38] LABS: e14a2 (b3a2) transcript <0.0032%; e1a2 transcript <0.0032 %
== END ==
PROVIDERS: Visit Provider Internal Medicine Medical Oncology
DX: C92.10 Chronic myeloid leukemia, BCR/ABL-positive, not having achieved remission (principal)
CPT/HCPCS: 36415; 80053; 81206; 85025

== ENCOUNTER 2020-06-12 17:30 | Observation (INO) | payer MEDICARE, SELFPAY ==
[2020-06-12] VITALS (12 sets, daily range): BP systolic 110–145; BP diastolic 69–87; PULSE 65–100; RESP 18–22; TEMP 36.6–36.9; O2SAT 92–96; BMI 28.7; BMI 28.5
--- NOTE | 2020-06-12 17:35 | [facility].EDCP ---
ED Disposition Condition on Discharge: Good - Critical Care Critical Care Time: No <Eros Menard - Last Filed: 06/12/20 20:24> <Sang Rashid - Last Filed: 06/12/20 20:29> Clinical Impression: CML (chronic myelocytic leukemia) Chest pain Qualifiers: Chest pain type: precordial pain Qualified Code(s): R07.2 - Precordial pain Disposition: Admitted as Observation Referrals: PCP,No [Primary Care Provider] - Attestation: On 06/12/20, the high probability of a clinically significant, sudden or life threatening deterioration of the following system(s) required my full and direct attention, intervention and personal management. The time I documented below is in addition to time spent performing reported procedures but includes the following listed in this critical care notation. Medical Decision Making - Medical Records Medical records reviewed: Yes: I reviewed the patient's medical records. - Emeka Inquiry Pt receiving controlled substance: No - Lab Data Lab results reviewed: Yes: I reviewed the patient's lab results. Result diagrams: 06/12/20 17:30 06/12/20 17:30 - ECG Data Tracing #1 ECG initial impression date: 06/12/20 ECG initial impression time: 17:30 <Eros Menard - Last Filed: 06/12/20 20:24> - Lab Data Result diagrams: 06/12/20 17:30 06/12/20 17:30 - Physician Consults Physician Consulted: alberto Reason -: Admission <Sang Rashid - Last Filed: 06/12/20 20:29> Vital Signs: 06/12/20 17:30 06/12/20 18:37 Temperature 98.1 F Temperature Source Oral Pulse Rate [Right Radial] 79 74 Respiratory Rate 18 18 Blood Pressure [Right Arm] 145/76 H 122/73 Blood Pressure Mean [Right Arm] 99 89 Blood Pressure Source [Right Arm] Automatic Cuff Automatic Cuff Blood Pressure Position [Right Arm] Sitting Sitting 02 Sat by Pulse Oximetry 95 95 Oxygen Delivery Method Room Air Room Air - Lab Data Lab Results 06/12/20 17:30: PT 10.8, INR 0.97 06/12/20 17:30: WBC 6.5, RBC 4.46, Hgb 13.0, Hct 40.3, MCV 90.3, MCH 29.1, MCHC 32.2, RDW 14.1, Plt Count 228, MPV 8.2, Neut % (Auto) 64.7, Lymph % (Auto) 25.3, [place] % (Auto) 7.8, Eos % (Auto) 1.8, Baso % (Auto) 0.4, Neut # (Auto) 4.2, Lymph # (Auto) 1.7, [place] # (Auto) 0.5, Eos # (Auto) 0.1, Baso # (Auto) 0.0 06/12/20 17:30: Sodium 139, Potassium 3.4 L, Chloride 106, Carbon Dioxide 25, Anion Gap 11.4, BUN 19 H, Creatinine 1.00, Estimated Creat Clear 78, Estimated GFR 55 L, Est GFR ( Amer) 67, Glucose 109 H, Calcium 10.9 H, Troponin I < 0.01 Orders (Tests/Meds): ED MEDICATIONS Generic Name Dose Route Start Last Admin Trade Name Freq PRN Reason Stop Dose Admin Nitroglycerin 0.4 mg 06/12/20 17:35 06/12/20 17:41 Nitroglycerin 0.4mg Sl Tablet SL 06/13/20 17:36 0.4 mg [id number] PRN Administration Chest Pain Discontinued Medications Generic Name Dose Route Start Last Admin Trade Name Freq PRN Reason Stop Dose Admin Aspirin 324 mg 06/12/20 17:35 06/12/20 17:41 Aspirin 81mg Chewable Tablet PO 06/12/20 17:36 324 mg ONCE ONE Administration Nitroglycerin 1 gm 06/12/20 20:21 Nitroglycerin 1 Gm Ointment TD 06/12/20 20:22 ONCE ONE ORDERS Category Date Time Status XR chest portable Stat Exams 06/12/20 17:36 Taken Covid-19 Nasal PCR ([facility]) Routine Lab 06/12/20 18:45 Received Troponin I Q3H Lab 06/12/20 20:45 Ordered Troponin I Q3H Lab 06/12/20 23:45 Ordered ECG Request by /Nse Stat Y 06/12/20 17:36 Ordered - ECG Data Tracing #1 81 bpm, normal sinus rhythm, no ectopy, no ST elevation or depression, normal intervals. (Eros Menard) Medical Decision Narrative: 65yo F evaluated for chest pain. Differential diagnosis includes was not limited to: ACS/KS, PE, pneumonia, pneumothorax, GERD, anxiety, musculoskeletal injury, constipation, acute cholecystitis. Patient is in no acute distress now that she has had nitroglycerin sublingually x1. Patient has a heart score of 5
--- NOTE | 2020-06-12 17:36 | ECG_ITS ---
APPROVED REPORT Exam: Resting ECG HR:81 bpm ECG Measurements Heart Rate 81 AXES WA 176 P 36 QRSd 76 QRS 31 QT 370 T 26 QTc 429 Conclusion Normal sinus rhythm Normal ECG Electronically signed by : Seth Negron, 06/12/2020 22:02:33
--- NOTE | 2020-06-12 17:36 | XR_ITS ---
PROCEDURE: XR CHEST PORTABLE CLINICAL HISTORY: cp Chest pain COMPARISON: CR XR CHEST 2V from 02/15/2020 DX XR CHEST 2V from 03/08/2020 CR XR CHEST 2V from 03/26/[address] CHEST W CON from 03/26/2020 FINDINGS: Mild cardiomegaly without failure. Consolidation/volume loss is present in the right lower lobe with small right-sided pleural effusion. No acute bony abnormalities. IMPRESSION: Increasing consolidation/volume loss in the right lower lobe with small right effusion Dictated by: Karri Cordero MD 06/12/2020 21:02 Karri Cordero MD in [place] 06/12/2020 21:02
--- NOTE | 2020-06-12 17:39 | PC.NURSE ---
notified rad of xray order
[2020-06-12 17:48] LABS: Basophils % 0.4 % (0.1-2.0); Eosinophils # 0.1 K/mm3 (0.0-0.4); Eosinophils % 1.8 % (0.1-12.0); Hematocrit 40.3 % (37.0-47.0); Lymphocytes # 1.7 K/mm3 (0.7-4.5); Lymphocytes % 25.3 % (10-50); Mean Corpuscular HGB Conc 32.2 g/dL (31.8-35.4); Mean Corpuscular Hemoglobin 29.1 pg (27.0-31.2); Mean Corpuscular Volume 90.3 fl (81-99); Mean Platelet Volume 8.2 fl (7.4-10.4); Monocytes # 0.5 K/mm3 (0.1-1.0); Monocytes % 7.8 % (1.7-9.3); Neutrophils # 4.2 K/mm3 (1.8-7.8); Neutrophils % 64.7 % (37.0-80.0); Platelet Count 228 K/mm3 (142-424); Red Blood Count 4.46 M/mm3 (4.20-5.40); Red Cell Distribution Width 14.1 % (11.5-17.5); White Blood Count 6.5 K/mm3 (4.8-10.8)
[2020-06-12 17:58] LABS: Blood Urea Nitrogen 19 mg/dl (7-17); Calcium 10.9 mg/dl (8.4-10.2); Carbon Dioxide 25 mmol/L (22.0-30.0); Chloride 106 mmol/L (98-107); Creatinine Clearance Estimated 78 mL/min (50-200); Estimated Glomerular Filt Rate 55 ml/min (>60); GFR (African American) 67 ML/MIN (>60); Glucose 109 mg/dl (74-100); Sodium 139 mmol/L (136-145)
[2020-06-12 18:05] LABS: INR 0.97 (0.9-1.1); Prothrombin Time 10.8 seconds (9.4-11.8)
[2020-06-12 18:14] LABS: Anion Gap 11.4 mEq/L (5-15); Potassium 3.4 mmoL/L (3.5-5.1); Troponin I < 0.01 ng/ml (0.00-0.034)
[2020-06-12 21:19] LABS: Troponin I < 0.01 ng/ml (0.00-0.034)
--- NOTE | 2020-06-12 22:43 | PC.NURSE ---
PT ARRIVED TO FLOOR VIA W/C FROM ED WITH STAFF AT [id number]
[2020-06-13] VITALS: BP 118/48; PULSE 87; PULSE 90; RESP 17; TEMP 36.7; O2SAT 94
[2020-06-13 00:24] LABS: Troponin I < 0.01 ng/ml (0.00-0.034)
[2020-06-13 04:00] VITALS: BP 109/57; PULSE 93; PULSE 95; RESP 18; TEMP 36.9; O2SAT 95
--- NOTE | 2020-06-13 05:19 | PC.NURSE ---
pt has rested well since arrival to floor, pt is alert and orieneted and able to make needs known, lungs remain clear, heart regular, telemetry remains in place, no episodes of chest pain since arrival to floor, pts only complaint is a headache mild in nature, vss, pt does have a pinpoint area in right groin area that she had a skin tag removed that is oozing small amounts of blood abd pad applied to that area will continue to monitor, iv patent no needs at this time
[2020-06-13 06:00] VITALS: BMI 28.5
[2020-06-13 06:51] LABS: Basophils % 0.1 % (0.1-2.0); Eosinophils # 0.1 K/mm3 (0.0-0.4); Eosinophils % 1.7 % (0.1-12.0); Hematocrit 35.6 % (37.0-47.0); Hemoglobin 11.7 g/dL (12.2-16.2); Lymphocytes # 0.7 K/mm3 (0.7-4.5); Lymphocytes % 13.3 % (10-50); Mean Corpuscular HGB Conc 32.9 g/dL (31.8-35.4); Mean Corpuscular Hemoglobin 29.2 pg (27.0-31.2); Mean Platelet Volume 8.2 fl (7.4-10.4); Monocytes # 0.5 K/mm3 (0.1-1.0); Neutrophils % 74.9 % (37.0-80.0); Platelet Count 206 K/mm3 (142-424); Red Blood Count 4.01 M/mm3 (4.20-5.40); White Blood Count 5.3 K/mm3 (4.8-10.8)
[2020-06-13 06:55] LABS: Chloride 111 mmol/L (98-107)
[2020-06-13 06:56] LABS: Potassium 3.7 mmoL/L (3.5-5.1); Sodium 140 mmol/L (136-145)
[2020-06-13 06:58] LABS: Blood Urea Nitrogen 16 mg/dl (7-17); Creatinine Clearance Estimated 78 mL/min (50-200); Estimated Glomerular Filt Rate 62 ml/min (>60); GFR (African American) 76 ML/MIN (>60)
[2020-06-13 06:59] LABS: Anion Gap 6.7 mEq/L (5-15); Calcium 10.1 mg/dl (8.4-10.2); Carbon Dioxide 26 mmol/L (22.0-30.0); Chol/HDL Ratio 2.3 (1-3.5); Cholesterol 122 mg/dl (140-200); Glucose 97 mg/dl (74-100); HDL Cholesterol 54 mg/dl (40-60); Magnesium 1.8 mg/dl (1.6-2.3); Triglycerides 80 mg/dl (30-150); VLDL Cholesterol 16 mg/dL (0-40)
[2020-06-13 07:10] LABS: Direct LDL Cholesterol 41.54 mg/dL (100-129)
--- NOTE | 2020-06-13 07:37 | HMH.HPDC ---
General - General Admission date:: 06/12/20 Discharge date: 06/13/20 *Admission Date: 06/12/20 *Chief complaint: Chest/abdominal discomfort *History of present illness: 65-year-old female with history of hyperlipidemia presented to the emergency department after sudden onset of a sharp burning discomfort right below the xiphoid process that began at 5 PM. Patient was driving back from [employer] and believed initially she was having heartburn. However she relates she had never had heartburn so intense in her life. The discomfort radiated through to her back. She felt nauseous. She thought she was having a hard time catching her breath. When symptoms did not seem to be easing up she decided to come to the emergency department. Patient had chest discomfort for a little over an hour before discomfort was relieved with nitroglycerin and aspirin 325 mg. Patient's troponins were negative x2 in the emergency department. She was subsequently admitted for a third troponin. Patient has remained chest pain-free overnight. Patient had previous echocardiogram in the spring 2019 for work-up of dyspnea on exertion that was ultimately discovered to be caused by large right pleural effusion. Patient had one prior stress test but she does not recall the year. She has no history of hypertension. Patient is not a smoker. [facility] History I have reviewed the patient's past medical history: Yes Medical History: Reports:: Cancer, Hyperlipidemia, Urinary Tract Infection Denies:: Diabetes Mellitus Type 1, Diabetes Mellitus Type 2, Internal Pacemaker, Lung Disease, MRSA, Seizures *Have you ever received a pneumonia vaccine?: Yes *Have you received a flu vaccine this season?: Yes Other Medical History: Reports: Anemia, Hypothyroidism, Thyroid Disease. Denies: Blood Transfusion Reaction Laterality Cases: Right: Breast Biopsy Other Surgeries: Yes: Cancer Surgery, Colonoscopy, Hysterectomy-Total, Hysterectomy-Partial, Thyroidectomy, Other (THYROIDECTOMY). No: Pacemaker Amputation: No Fractures: No - *Social History Last grade of school completed: Advanced degree Smoking Status: Never smoker Alcohol Intake: never Substance Use Type: denies use *Occupational Status:: retired Housing: house Household Members: spouse *Travel in the last 8 weeks: None Family Hx:: No significant family history Review of Systems - Constitutional Denies body ache(s), Denies chills, Denies lack of energy - Eyes Denies loss of vision - ENT Denies hoarseness - *Cardiovascular Reports chest pain, Reports chest pain at rest, Reports shortness of breath with activity, Reports shortness of breath when lying down, Denies chest pain with activity, Denies leg pain with activity, Denies excessive sweating, Denies generalized swelling, Denies irregular heart rhythm - *Respiratory Denies change in phlegm color, Denies chest congestion, Denies cough - *Gastrointestinal Reports abdominal pain, Denies belching, Denies bloating, Denies heartburn - *Genitourinary Denies abnormal periods, Denies abnormal vaginal bleeding - *Musculoskeletal Denies abnormal walking, Denies joint pain - Integumentary/Breasts Denies hair loss - *Neurologic Denies seizure-like activity Exam Vital signs and Labs for Last 24 Hours: Temp Pulse Resp BP Pulse Ox 98.5 F 93 H 18 109/57 L 95 06/13/20 04:00 06/13/20 04:00 06/13/20 04:00 06/13/20 04:00 06/13/20 04:00 Laboratory Results - last 24 hr 06/12/20 17:30: PT 10.8, INR 0.97 06/12/20 17:30: WBC 6.5, RBC 4.46, Hgb 13.0, Hct 40.3, MCV 90.3, MCH 29.1, MCHC 32.2, RDW 14.1, Plt Count 228, MPV 8.2, Neut % (Auto) 64.7, Lymph % (Auto) 25.3, [place] % (Auto) 7.8, Eos % (Auto) 1.8, Baso % (Auto) 0.4, Neut # (Auto) 4.2, Lymph # (Auto) 1.7, [place] # (Auto) 0.5, Eos # (Auto) 0.1, Baso # (Auto) 0.0 06/12/20 17:30: Sodium 139, Potassium 3.4 L, Chloride 106, Carbon Dioxide 25, Anion Gap 11.4, BUN 19 H, Creatinine 1.00, Estimated Creat Clear 78, Estimat
[2020-06-13 08:00] VITALS: BP 124/73; PULSE 84; PULSE 88; RESP 16; TEMP 36.8; O2SAT 96
--- NOTE | 2020-06-13 08:00 | CA_ITS ---
APPROVED REPORT EXAM: Comprehensive 2D, Doppler, and color-flow Echocardiogram Manager Medical: Cordelia Quintero RVT Ht: 5 ft 10 in Wt: 200lbs BSA: 2.09 BP: 122/73 mmHg Indications: CP,PLEURAL EFFUISON ON CXR,HX CLL,HX BREAST CA 2D Dimensions LVOT 2.10 cm (M/F) 1.5-2.5 LA Volume 17.10 mL LA Volume Index 8.22 mL/m2 (M/F) 16-34 M-Mode Dimensions RVDd 3.46 cm (0.9-2.6) LA Diam 4.04 cm (1.9-4.0) LVDd 2.90 cm (3.5-5.7) Ao Diam 3.25 cm (2.0-3.7) LVDs 1.37 cm (3.5-5.7) IVSd 1.65 cm (0.6-1.1) PWd 1.17 cm (0.6-1.1) EF (Teich) 85.10% FS 52.80% EDV (Teich) 32.20 mL ESV (Teich) 4.80 mL LV Diastology E Decel Time 263.00 (160-240 msec) E/A Ratio 0.9 MED E' 9.20 (< 7 cm/sec) E'/MED E' Ratio 8.87 (>14) LAT E' 7.60 (<10 cm/sec) E/LAT E' Ratio 10.74 (>14) Aortic Valve AO Peak GR. 8.00 mmHg Mitral Valve MV E Max Vasquez. 82.00 (40-130 cm/s) MV A Velocity 92.00 (40-130 cm/s) E/A Ratio 0.89 MV Decel. Time 263.00 (160-240 ms) MV PHT 77.00 ms Pulmonary Valve PV Peak Velocity 87.00 (50-150 cm/s) Left Ventricle Left atrium is mildly enlarged, left ventricle is normal size, mild concentric left ventricular hypertrophy, visually estimated ejection fraction 55% with no regional wall motion abnormality, grade 1 diastolic dysfunction seen without tissue Doppler evidence of raise left atrial pressure. Right Ventricle Right atrium and right ventricle are mildly enlarged with normal contractility. Aortic Valve Aortic valve is minimally thickened and fibrosed, there is no aortic stenosis or aortic insufficiency. Mitral Valve Mitral valve is grossly normal, there is mild mitral regurgitation. Tricuspid Valve Tricuspid valve grossly normal, there is mild tricuspid regurgitation, tricuspid regurgitation jet velocity is inadequate for calculation of the right ventricular systolic pressure. Pulmonic Valve Pulmonic valve is poorly visualized. Great Vessels Aortic root is normal size. Pericardium No significant pericardial effusion noted. Conclusion 1. Mild biatrial enlargement, normal left ventricular size, mild concentric left ventricular hypertrophy, visually estimated ejection fraction 55% with no regional wall motion abnormality, grade 1 diastolic dysfunction seen without tissue Doppler evidence of raise left atrial pressure. 2. Mildly enlarged right ventricle with normal contractility. 3. Mild mitral and tricuspid regurgitation. 4. No significant pericardial effusion noted. Electronically signed by : Fidencio López, 06/13/2020 18:20:13
--- NOTE | 2020-06-13 08:35 | HMH.PHAVTE ---
[facility] Pharmacy VTE Monitoring - Patient Demographics Admission date: 06/13/20 Report Date: 06/13/20 Time: 08:35 Allergies/Adverse Reactions: Patient Allergies Sulfa (Sulfonamide Antibiotics) Allergy (Verified 04/04/20 10:58) Unknown allergy reaction Height: 1.78 m Weight: 90.35 kg Patient Problems: Current Active Problems CML (chronic myelocytic leukemia) (Acute) Chest pain (Acute) Hyperlipidemia (Acute) Epigastric abdominal pain (Acute) - VTE Risk Labs: VTE Related Lab Results Hgb 11.7 g/dL (12.2-16.2) L 06/13/20 05:50 Hct 35.6 % (37.0-47.0) L 06/13/20 05:50 Plt Count 206 K/mm3 (142-424) 06/13/20 05:50 PT 10.8 seconds (9.4-11.8) 06/12/20 17:30 INR 0.97 (0.9-1.1) 06/12/20 17:30 BUN 16 mg/dl (7-17) 06/13/20 05:50 Creatinine 0.90 mg/dl (0.52-1.04) 06/13/20 05:50 Estimated Creat Clear 78 mL/min (50-200) 06/13/20 05:50 Was VTE Risk Assessment Performed: Yes VTE Score: 2 VTE Risk Level: Very Low Risk Clinical Trial Participant: No - Prophylaxis VTE Prophylaxis Ordered?: Yes Types of VTE Prophylaxis: TEDS Knee High
== END 2020-06-13 10:54 | disposition home or self-care (01) ==
LOC: ER 20:29 → 2ND 22:36
PROVIDERS: Admitting Provider Emergency Medicine; Emergency Provider Family Medicine; Visit Provider Family Medicine
DX: R07.9 Chest pain, unspecified (principal); E03.9 Hypothyroidism, unspecified; E78.5 Hyperlipidemia, unspecified; Z79.899 Other long term (current) drug therapy
CPT/HCPCS: 36415; 71045; 80048; 80061; 83735; 84484; 85025; 85610; 93005; 93306; 99282; G0378; U0003

== ENCOUNTER → 2020-06-26 15:21 | Outpatient (CLI) | payer MEDICARE, SELFPAY ==
--- NOTE | 2020-06-26 15:27 | MM_ITS ---
PROCEDURE: MM DIG SCREENING MAMM BI W/CAD Digital Breast Tomosynthesis Included CLINICAL INDICATION: SCREENING There is a history of cancer right breast with lumpectomy and follow-up radiation therapy. There have been previous biopsies left breast for benign disease. COMPARISON: MG MM DIG MAMM DX UNILAT RT CAD from 09/01/2019 MG MM SURGICAL SPECIMEN RT from 09/01/2019 MG MM DIG MAMM DX UNILAT LT CAD from 03/02/2020 TECHNIQUE: Standard CC and MLO images and 3D Tomosynthesis was obtained. R2 CAD reviewed. FINDINGS: Prominent somewhat heterogenic fibroglandular densities are seen in both breast. There is mild postlumpectomy scarring central portion right breast with multiple biopsy clips noted. There is diffuse skin thickening right breast consistent with previous radiation therapy. There is no new or suspicious lesion in either breast. There are no suspicious microcalcifications. IMPRESSION: Postlumpectomy changes and post radiotherapy changes right breast with no new or suspicious lesions seen BI-RAD Category: 2 Benign Finding(s) FOLLOW-UP: 1YR 1 Year Follow-up (A letter has been sent to the patient regarding results of the study.) Dictated by: Dr. Andriy Singleton MD 06/28/2020 11:51 Dr. Andriy Singleton MD in [place] 06/28/2020 11:51
== END ==
PROVIDERS: PCP Family Medicine; Visit Provider Surgery
DX: Z12.31 Encounter for screening mammogram for malignant neoplasm of breast (principal); Z85.3 Personal history of malignant neoplasm of breast
CPT/HCPCS: 77063; 77067

== ENCOUNTER → 2020-06-29 07:18 | Outpatient (CLI) | payer MEDICARE, SELFPAY ==
--- NOTE | 2020-06-29 | CA_ITS ---
APPROVED REPORT Exam: Pharmacologic Technologist: Shaina Cannon, Ht: 5 ft 10 in Wt: 198 lbs BSA: 2.08 m2 HR: 85 bpm BP: 149/79 mmHg Rhythm: NSR Indications: Chest pain Stress Test Details Test: LEXISCAN HR Resting HR: 96 bpm Max Heart Rate (APMHR): 153 bpm Max HR Achieved: 128 bpm Target HR (85% APMHR): 130 bpm % of APMHR: 83 Recovery HR: 103 bpm BP Resting BP: 149/79 mmHg Max BP: 160/71 mmHg Recovery BP: 142.0/70.0 mmHg ECG Clinical Reason for Termination: Completed protocol Exercise duration: 04:00 min Highest Stage Achieved: Exercise capacity: 1.0 METs Stress ECG Conclusion No chest pain - shortness of air reported during infusion - resolved in recovery. No ectopy. Less than 1.5mm ST depression noted. Images to follow. Electronically signed by : Fidencio López, 06/29/2020 12:18:03
--- NOTE | 2020-06-29 07:24 | NM_ITS ---
APPROVED REPORT Exam: Nuclear Stress Test Indication: short of breath..chest pain Patient Location: Outpatient Stress Tech: Shaina Cannon [place] Tech:JUAN LUIS Nassar RT(R)(N) Ht: 5 ft 10 in Wt: 200 lbs Bra Size: 38c HR: 85 bpm BP: 149/79 mmHg BSA: 2.09 m2 BMI: 28.6 History: short of breath..chest pain Procedure: Patient received a 0.4 mg of intravenous Lexiscan, resting heart rate 85 bpm, resting blood pressure 149/79 mmHg, with Lexiscan maximum heart rate achived was 123 bpm which is Less than 85 % of the maximum predicted heart rate and blood pressure was 156/70 mmHg. With Lexiscan, patient denied any complaint of chest pain. Electrocardiogram Resting electrocardiogram shows sinus rhythm, with Lexiscan there is less than 1.[address] segment depression noted from the baseline EKG. The EKG portion of the Lexiscan is nondiagnostic. Cardiac Stress and Resting SPECT Images: Cardiac Stress and Resting SPECT images were obtained using technetium 99m Myoview 31.3 mCi stress and 10.90 mCi at rest. Gated SPECT for analysis of segmental wall motion and calculation of the ejection fraction also done. Prone images were also obtained. Cardiac stress and resting SPECT images show uniform myocardial activity without segmental perfusion abnormality, computer derived ejection fraction is over 65% with no regional wall motion abnormality, right ventricle is normal size and contractility. Conclusion: 1. The EKG portion of the Lexiscan is nondiagnostic. 2. No scintigraphic evidence of reversible ischemia seen, computer derived ejection fraction is over 65% with no regional wall motion abnormality, right ventricle is normal size and contractility. 3. Normal Lexiscan Myoview study. Electronically signed by : Fidencio López, 06/29/2020 12:49:52
--- NOTE | 2020-06-29 10:53 | HMH.ITSHM ---
Current Home Medications as stated by this patient Anjali Carlson or front office representative. [] synthroid anasytozole atorvastatin asa
== END ==
PROVIDERS: PCP Family Medicine; Visit Provider Family Medicine
DX: R07.9 Chest pain, unspecified (principal); R06.00 Dyspnea, unspecified
CPT/HCPCS: 78452; 93017; A9502; J2785

== ENCOUNTER → 2020-07-05 09:49 | Outpatient (CLI) | payer MEDICARE, SELFPAY ==
[2020-07-05 12:00] LABS: Coronavirus 19 IgG Antibody Negative (Negative); Coronavirus 19 IgM Antibody Negative (Negative)
== END ==
PROVIDERS: Visit Provider Internal Medicine Gastroenterology
DX: Z01.818 Encounter for other preprocedural examination (principal); Z11.52 Encounter for screening for COVID-19; Z12.11 Encounter for screening for malignant neoplasm of colon
CPT/HCPCS: 36415; 86328

== ENCOUNTER 2020-07-06 11:03 | Day surgery (SDC) | payer MEDICARE, SELFPAY ==
[2020-06-28 11:03] VITALS: BMI 28.7
[2020-07-06] VITALS (7 sets, daily range): BP systolic 120–178; BP diastolic 61–83; PULSE 64–101; RESP 18; TEMP 36.2–37; O2SAT 94–98
--- NOTE | 2020-07-06 12:07 | HMH.ANESCL ---
[facility] Anesthesia Checklist - Patient Identification Patient Identification: Verbal (Name & ) - Structural Data Admitted From: Home Planned Operative Procedure/s: colonoscopy Consent for Planned Operative Procedure(s) Verified: Yes Verified Documents: Surgical Consent - NPO Status Verified Time NPO: 00:00 - Additional verifications Anesthesia Reactions: No (denies for self or family) Hx Blood Transfusions: No Blood Transfusion Reaction: No - Cardiovascular Assessment Heart Sounds: S1 & S2 Pulse Rhythm: Regular - Airway Assessment C-Spine Mobility Assessed: Yes TMJ Mobility Assessed: Yes Dentition: Good Dentition - Neurological Assessment Level of Consciousness: Awake - Anesthesia Plan Anesthesia Risk discussed: Yes ASA Class: II Anesthesia Type: MAC [facility] History I have reviewed the patient's past medical history: Yes Medical History: Reports:: Cancer, Hyperlipidemia, Urinary Tract Infection Denies:: Diabetes Mellitus Type 1, Diabetes Mellitus Type 2, Internal Pacemaker, Lung Disease, MRSA, Seizures *Have you ever received a pneumonia vaccine?: Yes *Have you received a flu vaccine this season?: No Other Medical History: Reports: Anemia, Hypothyroidism, Thyroid Disease. Denies: Blood Transfusion Reaction Anesthesia experience/problems:: none Laterality Cases: Right: Breast Biopsy Other Surgeries: Yes: Cancer Surgery, Colonoscopy, Hysterectomy-Total, Hysterectomy-Partial, Thyroidectomy, Other (THYROIDECTOMY). No: Pacemaker Amputation: No Fractures: No - *Social History Last grade of school completed: Advanced degree Smoking Status: Never smoker Alcohol Intake: never Substance Use Type: denies use *Occupational Status:: retired Housing: house Household Members: spouse *Travel in the last 8 weeks: None Family Hx:: No significant family history
--- NOTE | 2020-07-06 12:31 | P.PCN_ITS ---
[facility] Procedure Note Procedure Note:: Colonoscopy Procedure Report: Colonoscopy with cold snare polypectomy Endoscopist: Adelso Godinez II, MD Referring physician: Seth Fry MD Date of Procedure: July 06, 2020 Equipment: Olympus 180 variable stiffness pediatric colonoscope Sedation: MAC sedation Indication: Mrs. Carlson is a 65-year-old female who is here for follow-up screening/surveillance colonoscopy. The patient did have a colonoscopy in April 2011 (Dr. Keegan Woodard) at which time there were no polyps but she did have some diverticular disease. The patient reports no abdominal pain, weight loss, change in her bowel habits or rectal bleeding. She reports no family history of colon cancer. She does state that after [place], she had a 3-day spell of no bowel movement. She did take MiraLAX which helped and then later increased bran fiber intake. Her bowel movements are back to regular. Procedure: Prior to the procedure, a history and physical exam was performed, and patient's medications and allergies were reviewed. The risks, benefits and alternatives of the sedation and procedure were discussed with the patient. All questions were answered and informed consent was obtained. The patient was brought to the procedure room. Patient identification and proposed procedure were verified by the physician and the nurse. The patient was placed in a left lateral decubitus position and the scope was passed under direct vision. Throughout the procedure, the patient's blood pressure, pulse, and oxygen saturations were monitored continuously. The colonoscopy was accomplished without difficulty. The patient tolerated the procedure well. Findings: On digital rectal examination there was normal rectal tone. There were no external hemorrhoids. The colonoscope was introduced through the anal canal to the rectum and advanced to the cecum. The ileocecal valve and appendiceal orifice were identified. The scope was advanced a short distance into the ileum which appeared grossly normal. The scope was then withdrawn into the colon. There were 2 colon polyps (cecum x1 (3 mm) and transverse x1 (7 mm)) which were removed via cold snare polypectomy. There were a few scattered diverticuli throughout the descending and sigmoid colon (LEFT colon). The rectum itself was normal. Upon retroflexion within the rectum there were grade 1-2 internal hemorrhoids. The preparation was excellent throughout with [place] Preparation Score of 9. The cecal time was 12 minutes. Impression: 1. Colonic polyps x2 2. Mild left-sided diverticulosis 3. Grade 1-2 internal hemorrhoids Plan: I will follow up the polyp pathology and recommend repeat colonoscopy again in 7 years based upon the polyp histology. I would encourage a fiber bowel regimen on a long-term daily maintenance basis.
== END 2020-07-06 13:25 | disposition home or self-care (01) ==
LOC: OUTP 11:04
PROVIDERS: PCP Family Medicine; Visit Provider Internal Medicine Gastroenterology
PROC: 0DJD8ZZ Inspection of Lower Intestinal Tract, Via Natural or Artificial Opening Endoscopic (ICD-10-PCS; CPT 45378; principal; 2020-07-06 12:00)
DX: Z12.11 Encounter for screening for malignant neoplasm of colon (principal); K63.5 Polyp of colon; K57.30 Diverticulosis of large intestine without perforation or abscess without bleeding; K64.0 First degree hemorrhoids; E78.5 Hyperlipidemia, unspecified; E89.0 Postprocedural hypothyroidism; Z85.9 Personal history of malignant neoplasm, unspecified; Z87.440 Personal history of urinary (tract) infections; Z79.82 Long term (current) use of aspirin; Z79.899 Other long term (current) drug therapy
CPT/HCPCS: 45385; 88305

== ENCOUNTER → 2020-09-04 14:01 | Outpatient (CLI) | payer MEDICARE, SELFPAY ==
[2020-09-04 15:14] LABS: Blood Urea Nitrogen 17 mg/dl (7-17); Estimated Glomerular Filt Rate 50 ml/min (>60); GFR (African American) 60 ML/MIN (>60)
== END ==
PROVIDERS: Visit Provider Registered Nurse
DX: Z01.818 Encounter for other preprocedural examination (principal)
CPT/HCPCS: 36415; 82565; 84520

== ENCOUNTER → 2020-09-05 12:41 | Outpatient (CLI) | payer MEDICARE, SELFPAY ==
--- NOTE | 2020-09-05 12:51 | CT_ITS ---
PROCEDURE: CT HIP LT W CON CLINICAL HISTORY: BREAST CA Lt hip pain xmonths Hx of breast cancer c/o COMPARISON: CT ABDPELW CT ABD PELVIS W/ CONTRAST from 09/23/2013 TECHNIQUE: Axial images obtained with sagittal and coronal reformats. All CT scans at the facility use one or more dose reduction, viz: automated exposure control, ma/kV adjustment per patient size (including targeted exams where dose is matched to indication, i.e. head), or iterative reconstruction technique. FINDINGS: No fracture or dislocation is evident. There are mild osteoarthritic changes of both hips. A blastic lesion is present in the left aspect of the sacrum at the S2 level. This measures 12 mm previously measuring 4 mm on 09/23/2013. Small blastic focus is present in the left aspect of the symphysis pubis and has developed since the older exam measuring 5 mm. There are at least 3 other small blastic foci in the sacrum 2 of which appear stable compared to the older exam. 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 Cystic areas are present in the femoral necks on both sides consistent with geodes not significantly changed. IMPRESSION: 1. No fracture or dislocation. Stable cystic areas in the femoral necks on both sides consistent with geodes. Mild osteoarthritic changes are present involving the hips. 2. Scattered sclerotic foci the largest in the left aspect of the sacrum. Metastatic disease in this patient with history of breast cancer is a consideration. Multiple bone islands are also considered. Bone scan or PET CT may provide further evaluation. Dictated by: Karri Cordero MD 09/05/2020 23:09 Karri Cordero MD in [place] 09/06/2020 06:17
--- NOTE | 2020-09-05 12:51 | CT_ITS ---
PROCEDURE: CT PELVIS W CON CLINICAL INDICATION: BREAST CA Lt hip pain xmonths Hx of breast cancer c/o COMPARISON: CT ABDPELW CT ABD PELVIS W/ CONTRAST from 09/23/[address] HIP LT W CON from 09/05/2020 TECHNIQUE: 75 mL Isovue 370. Axial images obtained with sagittal and coronal reformats. All CT scans at the facility use one or more dose reduction, viz: automated exposure control, ma/kV adjustment per patient size (including targeted exams where dose is matched to indication, i.e. head), or iterative reconstruction technique. FINDINGS: No fracture or dislocation is evident. There are mild osteoarthritic changes of both hips. A blastic lesion is present in the left aspect of the sacrum at the S2 level. This measures 12 mm previously measuring 4 mm on 09/23/2013. Small blastic focus is present in the left aspect of the symphysis pubis and has developed since the older exam measuring 5 mm. There are at least 3 other small blastic foci in the sacrum 2 of which appear stable compared to the older exam. 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 Cystic areas are present in the femoral necks on both sides consistent with geodes not significantly changed. IMPRESSION: 1. No fracture or dislocation. Stable cystic areas in the femoral necks on both sides consistent with geodes. Mild osteoarthritic changes are present involving the hips. 2. Scattered sclerotic foci the largest in the left aspect of the sacrum. Metastatic disease in this patient with history of breast cancer is a consideration. Multiple bone islands are also considered. Bone scan or PET CT may provide further evaluation. Dictated by: Karri Cordero MD 09/06/2020 06:15 Karri Cordero MD in [place] 09/06/2020 06:15
== END ==
PROVIDERS: PCP Family Medicine; Visit Provider Registered Nurse
DX: C50.911 Malignant neoplasm of unspecified site of right female breast (principal); M25.552 Pain in left hip
CPT/HCPCS: 72193; 73701; Q9967

== ENCOUNTER → 2020-09-17 15:41 | Outpatient (CLI) | payer MEDICARE, SELFPAY ==
[2020-09-17 16:37] LABS: Basophils % 0.6 % (0.1-2.0); Eosinophils # 0.1 K/mm3 (0.0-0.4); Eosinophils % 2.5 % (0.1-12.0); Hematocrit 39.3 % (37.0-47.0); Lymphocytes # 0.9 K/mm3 (0.7-4.5); Lymphocytes % 17.1 % (10-50); Mean Corpuscular Hemoglobin 29.8 pg (27.0-31.2); Mean Corpuscular Volume 90.1 fl (81-99); Mean Platelet Volume 8.7 fl (7.4-10.4); Monocytes # 0.4 K/mm3 (0.1-1.0); Monocytes % 6.9 % (1.7-9.3); Neutrophils # 3.7 K/mm3 (1.8-7.8); Neutrophils % 72.9 % (37.0-80.0); Platelet Count 213 K/mm3 (142-424); Red Blood Count 4.36 M/mm3 (4.20-5.40); Red Cell Distribution Width 13.8 % (11.5-17.5)
[2020-09-17 16:57] LABS: Alanine Aminotransferase 17 U/L (12-78); Albumin Level 4.1 g/dl (3.5-5.0); Albumin/Globulin Ratio 1.6 (1.1-1.8); Alkaline Phosphatase 85 U/L (38-126); Anion Gap 9.4 mEq/L (5-15); Aspartate Amino Transferase 30 U/L (14-36); Bilirubin,Total 0.4 mg/dl (0.2-1.3); Blood Urea Nitrogen 18 mg/dl (7-17); Calcium 10.6 mg/dl (8.4-10.2); Carbon Dioxide 27 mmol/L (22.0-30.0); Chloride 106 mmol/L (98-107); Estimated Glomerular Filt Rate 50 ml/min (>60); GFR (African American) 60 ML/MIN (>60); Globulin 2.6 g/dL (1.3-3.2); Glucose 86 mg/dl (74-100); Potassium 4.4 mmoL/L (3.5-5.1); Sodium 138 mmol/L (136-145); Total Protein,Serum 6.7 g/dl (6.3-8.2)
[2020-09-22 18:03] LABS: Interpretation: Negative (.)
== END ==
PROVIDERS: Visit Provider Internal Medicine Medical Oncology
DX: C92.10 Chronic myeloid leukemia, BCR/ABL-positive, not having achieved remission (principal)
CPT/HCPCS: 36415; 80053; 81206; 85025

== ENCOUNTER → 2020-12-17 14:02 | Outpatient (CLI) | payer MEDICARE, SELFPAY ==
[2020-12-17 14:24] LABS: Basophils % 0.7 % (0.1-2.0); Eosinophils # 0.1 K/mm3 (0.0-0.4); Eosinophils % 2.2 % (0.1-12.0); Hematocrit 42.3 % (37.0-47.0); Hemoglobin 13.5 g/dL (12.2-16.2); Lymphocytes # 0.9 K/mm3 (0.7-4.5); Lymphocytes % 15.5 % (10-50); Mean Corpuscular HGB Conc 31.9 g/dL (31.8-35.4); Mean Corpuscular Volume 90.9 fl (81-99); Mean Platelet Volume 8.7 fl (7.4-10.4); Monocytes # 0.3 K/mm3 (0.1-1.0); Monocytes % 5.4 % (1.7-9.3); Neutrophils # 4.5 K/mm3 (1.8-7.8); Neutrophils % 76.2 % (37.0-80.0); Platelet Count 218 K/mm3 (142-424); Red Blood Count 4.66 M/mm3 (4.20-5.40); Red Cell Distribution Width 14.4 % (11.5-17.5); White Blood Count 5.9 K/mm3 (4.8-10.8)
[2020-12-17 17:02] LABS: Alanine Aminotransferase 20 U/L (12-78); Albumin Level 4.1 g/dl (3.5-5.0); Albumin/Globulin Ratio 1.6 (1.1-1.8); Alkaline Phosphatase 72 U/L (38-126); Anion Gap 10.4 mEq/L (5-15); Aspartate Amino Transferase 28 U/L (14-36); Bilirubin,Total 0.4 mg/dl (0.2-1.3); Blood Urea Nitrogen 17 mg/dl (7-17); Calcium 10.2 mg/dl (8.4-10.2); Carbon Dioxide 27 mmol/L (22.0-30.0); Chloride 103 mmol/L (98-107); Estimated Glomerular Filt Rate 55 ml/min (>60); GFR (African American) 67 ML/MIN (>60); Globulin 2.6 g/dL (1.3-3.2); Glucose 163 mg/dl (74-100); Potassium 4.4 mmoL/L (3.5-5.1); Sodium 136 mmol/L (136-145); Total Protein,Serum 6.7 g/dl (6.3-8.2)
[2020-12-21 17:34] LABS: Interpretation: Negative (.)
== END ==
PROVIDERS: Visit Provider Internal Medicine Medical Oncology
DX: C92.10 Chronic myeloid leukemia, BCR/ABL-positive, not having achieved remission (principal)
CPT/HCPCS: 36415; 80053; 81206; 85025

== ENCOUNTER → 2020-12-27 11:28 | Outpatient (CLI) | payer MEDICARE, SELFPAY ==
--- NOTE | 2020-12-27 11:36 | XR_ITS ---
PROCEDURE: XR CHEST 2V CLINICAL HISTORY: BREAST CANCER Pleural effusion, shortness of breath and cough COMPARISON: CR XR CHEST 2V from 09/15/2019 DX XR CHEST 2V from 03/08/[address] CHEST W CON from 03/26/2020 CR XR CHEST 2V from 03/26/2020 CR XR CHEST PORTABLE from 06/12/2020 FINDINGS: The cardiomediastinal silhouette and pulmonary vascularity are within normal limits. There is a small to medium-sized right pleural effusion with right basilar atelectatic changes. Trace left-sided effusion also noted. A 2.3 cm nodule is present in the right lower lobe not significantly changed from 09/15/2019. Calcified granuloma is present in the right upper lobe. No acute bony findings. There surgical clips in the right anterior chest wall. No acute bony abnormalities. IMPRESSION: Small to medium-sized right effusion with right basilar atelectasis with trace left effusion. No change right perihilar nodule. Dictated by: Karri Cordero MD 12/27/2020 11:55 Karri Cordero MD in [place] 12/27/2020 11:55
== END ==
PROVIDERS: PCP Family Medicine; Visit Provider Internal Medicine Medical Oncology
DX: C92.10 Chronic myeloid leukemia, BCR/ABL-positive, not having achieved remission (principal)
CPT/HCPCS: 71046

== ENCOUNTER → 2021-03-18 15:34 | Outpatient (CLI) | payer MEDICARE, SELFPAY ==
[2021-03-18 16:29] LABS: Basophils % 0.5 % (0.1-2.0); Eosinophils # 0.2 K/mm3 (0.0-0.4); Eosinophils % 2.9 % (0.1-12.0); Hematocrit 40.7 % (37.0-47.0); Hemoglobin 13.6 g/dL (12.2-16.2); Lymphocytes % 16.6 % (10-50); Mean Corpuscular HGB Conc 33.5 g/dL (31.8-35.4); Mean Corpuscular Hemoglobin 30.8 pg (27.0-31.2); Mean Corpuscular Volume 91.8 fl (81-99); Mean Platelet Volume 8.9 fl (7.4-10.4); Monocytes # 0.4 K/mm3 (0.1-1.0); Monocytes % 6.4 % (1.7-9.3); Neutrophils # 4.2 K/mm3 (1.8-7.8); Neutrophils % 73.6 % (37.0-80.0); Platelet Count 268 K/mm3 (142-424); Red Blood Count 4.43 M/mm3 (4.20-5.40); Red Cell Distribution Width 14.1 % (11.5-17.5); White Blood Count 5.7 K/mm3 (4.8-10.8)
[2021-03-18 16:47] LABS: Alanine Aminotransferase 20 U/L (12-78); Albumin Level 4.3 g/dl (3.5-5.0); Albumin/Globulin Ratio 1.7 (1.1-1.8); Alkaline Phosphatase 79 U/L (38-126); Anion Gap 9.6 mEq/L (5-15); Aspartate Amino Transferase 29 U/L (14-36); Bilirubin,Total 0.2 mg/dl (0.2-1.3); Blood Urea Nitrogen 17 mg/dl (7-17); Calcium 10.9 mg/dl (8.4-10.2); Carbon Dioxide 28 mmol/L (22.0-30.0); Chloride 104 mmol/L (98-107); Estimated Glomerular Filt Rate 62 ml/min (>60); GFR (African American) 75 ML/MIN (>60); Globulin 2.6 g/dL (1.3-3.2); Glucose 91 mg/dl (74-100); Potassium 4.6 mmoL/L (3.5-5.1); Sodium 137 mmol/L (136-145); Total Protein,Serum 6.9 g/dl (6.3-8.2)
[2021-03-26 16:17] LABS: Interpretation: Negative (.)
== END ==
PROVIDERS: Visit Provider Internal Medicine Medical Oncology
DX: C92.10 Chronic myeloid leukemia, BCR/ABL-positive, not having achieved remission (principal)
CPT/HCPCS: 36415; 80053; 81206; 85025

== ENCOUNTER 2021-04-03 09:10 | Emergency (ER) | payer MEDICARE, SELFPAY ==
[2021-04-03 09:10] VITALS: BP 146/91; PULSE 91; RESP 19; TEMP 37; O2SAT 96; BMI 29.5
--- NOTE | 2021-04-03 09:34 | XR_ITS ---
PROCEDURE: XR CHEST 2V CLINICAL HISTORY: congestion COMPARISON: CT CT CHEST W CON from 03/26/2020 CR XR CHEST 2V from 03/26/2020 CR XR CHEST PORTABLE from 06/12/2020 CR XR CHEST 2V from 12/27/2020 FINDINGS: The cardiomediastinal silhouette and pulmonary vascularity are within normal limits. There is a 2 cm nodule in the right lower lobe not significantly changed. Medium-sized right pleural effusion not significantly changed with right basilar atelectasis. There is a small left pleural effusion which is slightly increased in size from the previous exam. No acute bony findings. IMPRESSION: No change medium-sized right pleural effusion with atelectatic change. Increasing size small left pleural effusion No change right lower lung zone nodule. Dictated by: Karri Cordero MD 04/03/2021 10:21 Karri Cordero MD in [place] 04/03/2021 10:21
--- NOTE | 2021-04-03 09:46 | HMH.EDUTC ---
[facility] [place] Clinical Impression: Chest congestion Disposition: Home, Self-Care Condition on Discharge: Good Instructions: Cough, DI for Cough -- Adult, DI for Nasal Congestion Additional Instructions: Go to your appointment with Dr Gabriel today as scheduled for further treatment and evaluation as discussed Return if needed Straight to ER if any life threatening symptoms Referrals: Seth Fry MD [Primary Care Provider] - As needed Medical Decision Making - Emeka Inquiry Pt receiving controlled substance: No Emeka was queried for this patient: No Vital Signs: 04/03/21 09:10 04/03/21 10:44 Temperature 98.6 F 98.6 F Temperature Source Oral Pulse Rate 91 H Pulse Rate [Right Brachial] 91 H Respiratory Rate 19 19 Blood Pressure 146/91 H Blood Pressure [Right Arm] 146/91 H Blood Pressure Mean [Right Arm] 109 Blood Pressure Source [Right Arm] Automatic Cuff Blood Pressure Position [Right Arm] Sitting 02 Sat by Pulse Oximetry 96 Oxygen Delivery Method Room Air Orders (Tests/Meds): ORDERS Category Date Time Status Covid-19 Nasal PCR ([facility]) Routine Lab 04/03/21 09:30 Received - Radiology Data #1 Image(s): Chest Image Reviewed: Yes I have reviewed radiologist's interpretation IMPRESSION: No change medium-sized right pleural effusion with atelectatic change. Increasing size small left pleural effusion No change right lower lung zone nodule. - Physician Consults Physician Consulted: Dr Gabriel Time: 10:24 Reason -: Other Comment/Response: Due to patient history and complaint Spoke with Dr Fry office and they advised that leigh had appointment there today at [address] Gabriel Spoke with Dr Gabriel nurse who was speaking with Dr Gabriel about the chest xray and he advised to have her come to the office and they would provide further treatment to not start antibiotics in the [facility] HPI - General Stated complaint: cough, congestion Time Seen by Provider: 04/03/21 09:47 Mode of Arrival: Ambulatory Source of Information: Patient Limitations: No Limitations Description of Symptoms (Recalled from Triage Doc. by RN): PATIENT C/O DRY COUGH, SORE THROAT AND CONGESTION X 4 DAYS HEENT Symptoms (Recalled from RN notes): Yes Resp Symptoms (Recalled from RN notes): Yes Skin Symptoms (Recalled from RN notes): No MS Symptoms (Recalled from RN notes): No Functional Status (Recalled from RN notes): WNL - History of Present Illness Provider Complaint: Patient states that she has been having some nasal congestion sore throat and cough for several days State that today she woke up and her throat was hurting worse an she overall didnt feel well so she came in to get checked - Related Data Home Medications Medication Instructions Recorded Confirmed atorvastatin 10 mg tablet 10 mg PO ONCE 11/19/17 04/03/21 Aspirin [Aspir 81] 81 mg PO DAILY 11/23/17 04/03/21 levothyroxine 112 mcg capsule 125 mcg PO ONCE cap 04/08/18 04/03/21 Anastrozole 1 mg PO DAILY 01/30/20 04/03/21 dasatinib 70 mg tablet 70 mg PO DAILY 02/28/20 04/03/21 Cholecalciferol (Vitamin D3) 2,000 unit PO DAILY 04/03/21 04/03/21 [Vitamin D3 1,000 Unit Cap] Allergies Allergy/AdvReac Type Severity Reaction Status Date / Time Sulfa (Sulfonamide Allergy Unknown Verified 01/09/21 09:24 Antibiotics) allergy reaction - Worker's Comp Is this a Worker's Comp case?: No [facility] History - Hepatitis A Screen Drug use history?: No High risk sexual behaviors?: No History of sexually transmitted infection?: No Currently employed?: No Childcare worker?: No Do you have indoor plumbing?: Yes Do you have electricity?: Yes Attestation statement:: This patient has been screened for Hepatitis A risk factors. I have reviewed the patient's past medical history: Yes Medical History: Reports:: Cancer (THYROID), Hyperlipidemia, Urinary Tract Infection Denies:: Diabetes Mellitus Type 1, Diabetes Mellitus Type 2, I
[2021-04-03 10:44] VITALS: BP 146/91; PULSE 91; RESP 19; TEMP 37; O2SAT 96
== END 2021-04-03 10:46 | disposition home or self-care (01) ==
PROVIDERS: Emergency Provider Nurse Practitioner; PCP Family Medicine
DX: R09.89 Other specified symptoms and signs involving the circulatory and respiratory systems (principal); R05.1 Acute cough; E03.9 Hypothyroidism, unspecified; E78.5 Hyperlipidemia, unspecified; Z85.850 Personal history of malignant neoplasm of thyroid
CPT/HCPCS: G0463; 71046; 99202; C9803; U0003; U0005

== ENCOUNTER → 2021-07-01 10:12 | Outpatient (CLI) | payer MEDICARE, SELFPAY ==
--- NOTE | 2021-07-01 10:12 | MM_ITS ---
PROCEDURE INFORMATION: Exam: MG Bilateral Screening 3D Mammography Exam date and time: 07/01/2021 10:12 AM Age: 66 years old Clinical indication: Encounter for screening mammogram for malignant neoplasm of breast . Personal history of right breast cancer TECHNIQUE: Imaging protocol: Bilateral Screening tomosynthesis and 2D mammography including computer-aided detection (CAD) when performed. COMPARISON: No relevant prior studies available. FINDINGS: MAMMOGRAPHY: Breast composition: The breast tissue is heterogeneously dense, which may obscure small masses. Mass: None. Architectural distortion: Stable post operative architectural distortion in the right central breast due to prior lumpectomy for carcinoma. Calcifications: No suspicious calcifications. Asymmetric density: None. Skin thickening: Mild diffuse skin thickening on the right is due to radiation change Axillary adenopathy: None. IMPRESSION: No mammographic evidence of malignancy. Annual screening is recommended unless otherwise clinically indicated. ASSESSMENT: BI-RADS Category 2: Benign
[2021-07-01 11:13] LABS: Hematocrit 42.7 % (37.0-47.0); Hemoglobin 14.2 g/dL (12.2-16.2); Mean Corpuscular HGB Conc 33.3 g/dL (31.8-35.4); Mean Corpuscular Hemoglobin 30.9 pg (27.0-31.2); Red Blood Count 4.59 M/mm3 (4.20-5.40); Red Cell Distribution Width 14.2 % (11.5-17.5); White Blood Count 5.6 K/mm3 (4.8-10.8)
[2021-07-01 11:14] LABS: Basophils % 0.5 % (0.1-2.0); Eosinophils # 0.1 K/mm3 (0.0-0.4); Eosinophils % 1.6 % (0.1-12.0); Lymphocytes # 0.8 K/mm3 (0.7-4.5); Lymphocytes % 13.5 % (10-50); Mean Platelet Volume 7.9 fl (7.4-10.4); Monocytes # 0.3 K/mm3 (0.1-1.0); Monocytes % 6.1 % (1.7-9.3); Neutrophils # 4.4 K/mm3 (1.8-7.8); Neutrophils % 78.3 % (37.0-80.0); Platelet Count 233 K/mm3 (142-424)
[2021-07-01 12:23] LABS: Alanine Aminotransferase 18 U/L (12-78); Albumin Level 4.3 g/dl (3.5-5.0); Albumin/Globulin Ratio 1.5 (1.1-1.8); Alkaline Phosphatase 70 U/L (38-126); Anion Gap 12.4 mEq/L (5-15); Aspartate Amino Transferase 30 U/L (14-36); Bilirubin,Total 0.4 mg/dl (0.2-1.3); Blood Urea Nitrogen 17 mg/dl (7-17); Calcium 10.5 mg/dl (8.4-10.2); Carbon Dioxide 25 mmol/L (22.0-30.0); Chloride 104 mmol/L (98-107); Estimated Glomerular Filt Rate 62 ml/min (>60); GFR (African American) 75 ML/MIN (>60); Globulin 2.8 g/dL (1.3-3.2); Glucose 121 mg/dl (74-100); Potassium 4.4 mmoL/L (3.5-5.1); Sodium 137 mmol/L (136-145); Total Protein,Serum 7.1 g/dl (6.3-8.2)
[2021-07-11 14:19] LABS: Interpretation: Negative (.)
== END ==
PROVIDERS: Internal Medicine Medical Oncology; PCP Family Medicine; Visit Provider Surgery
DX: Z12.31 Encounter for screening mammogram for malignant neoplasm of breast (principal); C92.10 Chronic myeloid leukemia, BCR/ABL-positive, not having achieved remission
CPT/HCPCS: 36415; 77063; 77067; 80053; 81206; 85025

== ENCOUNTER → 2021-07-10 09:35 | Outpatient (CLI) | payer MEDICARE, SELFPAY ==
--- NOTE | 2021-07-10 09:44 | XR_ITS ---
FINAL REPORT CLINICAL HISTORY: SOA COMPARISON: April 03, 2021 FINDINGS: Two views of the chest were obtained. The heart size and pulmonary vascularity are within normal limits. The mediastinum is normal. There is right lung base nodule measuring 23 mm and was previously 20 mm. There is moderate right pleural effusion which is stable. There is persistent bibasilar atelectasis. There is no pneumothorax. The bony thorax is intact. IMPRESSION: Stable right pleural effusion. Persistent bibasilar atelectasis. 23 mm right lung base nodule. Recommend chest CT for further evaluation if not already performed. Reviewed, Interpreted and Dictated by Carlos Romero III, MD Transcribed by Jessica Whitlock Authenticated by Carlos Romero III, MD on 07/10/2021 11:29:09 AM [facility]
== END ==
PROVIDERS: PCP Surgery; Visit Provider Family Medicine
DX: R06.02 Shortness of breath (principal)
CPT/HCPCS: 71046

== ENCOUNTER → 2021-09-06 12:00 | Outpatient (CLI) | payer MEDICARE, SELFPAY ==
--- NOTE | 2021-09-06 12:06 | XR_ITS ---
FINAL REPORT CLINICAL HISTORY: RIB PAIN ON RIGHT SIDE after fall FINDINGS: 3 views of the right ribs were obtained. There are no rib fractures. There is no pneumothorax. A single view of the chest demonstrates moderate right and small left pleural effusions with overlying atelectasis. There is a 1.9 cm left renal stone.. IMPRESSION: No acute rib fracture or pneumothorax. Right greater than left pleural effusions with overlying atelectasis. Reviewed, Interpreted and Dictated by Jethro Camarillo MD Transcribed by Nik Owens Authenticated by Jethro Camarillo MD on 09/06/2021 01:24:38 PM [facility]
--- NOTE | 2021-09-06 12:06 | XR_ITS ---
FINAL REPORT CLINICAL HISTORY: UPPER BACK PAIN ON RIGHT SIDE, after fall, patient states pain between scapula FINDINGS: THORACIC SPINE SERIES. Two views demonstrate no fracture. There is mild anterior osteophyte formation throughout the thoracic spine. There is no malalignment. IMPRESSION: No acute process. Reviewed, Interpreted and Dictated by Jethro Camarillo MD Transcribed by Nik Owens Authenticated by Jethro Camarillo MD on 09/06/2021 01:24:40 PM [facility]
== END ==
PROVIDERS: PCP Family Medicine; Visit Provider Nurse Practitioner Family
DX: M54.6 Pain in thoracic spine (principal); R07.81 Pleurodynia
CPT/HCPCS: 71101; 72070

== ENCOUNTER → 2021-12-19 09:25 | Outpatient (CLI) | payer MEDICARE, SELFPAY ==
--- NOTE | 2021-12-19 09:33 | XR_ITS ---
FINAL REPORT TECHNIQUE: Bone mineral density was calculated of the lumbar spine and hip. CLINICAL HISTORY: hypercalcemia, post menopausal FINDINGS: DEXA BONE DENSITY AXIAL SKELETON Using L1-4, the bone mineral density of the spine is 0.846 g/cm2, corresponding to T-score of -1.8. Using the left hip, the bone mineral density of the femoral neck is 0.720 g/cm2, corresponding to a T-score of -1.8. NOTE: T-score: Standard deviation compared with peak bone mass of young adult mean. *Following the recommendations of the International Society of Bone densitometry, classification of hip BMD is based on the lower of two T-scores; total hip or femoral neck. IMPRESSION: Diminished bone mineral density of the lumbar spine and left hip consistent with osteopenia. FRAX 10 year fracture risk is 1.4 % for a hip fracture and 9.7 % for a major osteoporotic fracture. Reviewed, Interpreted and Dictated by Carlos Romero III, MD Transcribed by Jessica Whitlock Authenticated and [facility]
== END ==
PROVIDERS: PCP Family Medicine; Visit Provider Internal Medicine Endocrinology, Diabetes & Metabolism
DX: Z78.0 Asymptomatic menopausal state (principal); E83.52 Hypercalcemia
CPT/HCPCS: 77080

== ENCOUNTER → 2022-01-07 14:43 | Outpatient (CLI) | payer MEDICARE, SELFPAY ==
[2022-01-07 15:22] LABS: Basophils % 0.7 % (0.1-2.0); Eosinophils # 0.1 K/mm3 (0.0-0.4); Eosinophils % 2.7 % (0.1-12.0); Hematocrit 41.5 % (37.0-47.0); Hemoglobin 13.2 g/dL (12.2-16.2); Lymphocytes # 0.6 K/mm3 (0.7-4.5); Lymphocytes % 12.8 % (10-50); Mean Corpuscular HGB Conc 31.9 g/dL (31.8-35.4); Mean Corpuscular Hemoglobin 30.2 pg (27.0-31.2); Mean Corpuscular Volume 94.7 fl (81-99); Mean Platelet Volume 8.6 fl (7.4-10.4); Monocytes # 0.3 K/mm3 (0.1-1.0); Monocytes % 6.8 % (1.7-9.3); Neutrophils # 3.9 K/mm3 (1.8-7.8); Platelet Count 231 K/mm3 (142-424); Red Blood Count 4.39 M/mm3 (4.20-5.40)
[2022-01-07 15:30] LABS: Alanine Aminotransferase 21 U/L (12-78); Albumin/Globulin Ratio 1.5 (1.1-1.8); Alkaline Phosphatase 88 U/L (38-126); Anion Gap 10.6 mEq/L (5-15); Aspartate Amino Transferase 30 U/L (14-36); Bilirubin,Total < 0.1 mg/dl (0.2-1.3); Blood Urea Nitrogen 20 mg/dl (7-17); Calcium 10.8 mg/dl (8.4-10.2); Carbon Dioxide 28 mmol/L (22.0-30.0); Chloride 106 mmol/L (98-107); Estimated Glomerular Filt Rate 55 ml/min (>60); GFR (African American) 67 ML/MIN (>60); Globulin 2.7 g/dL (1.3-3.2); Glucose 126 mg/dl (74-100); Potassium 4.6 mmoL/L (3.5-5.1); Sodium 140 mmol/L (136-145); Total Protein,Serum 6.7 g/dl (6.3-8.2)
[2022-01-17 02:10] LABS: Interpretation: Negative (.)
== END ==
PROVIDERS: PCP Family Medicine; Visit Provider Internal Medicine Medical Oncology
DX: C92.10 Chronic myeloid leukemia, BCR/ABL-positive, not having achieved remission (principal)
CPT/HCPCS: 36415; 80053; 81206; 85025

== ENCOUNTER → 2022-01-27 10:16 | Outpatient (CLI) | payer MEDICARE, SELFPAY ==
[2022-01-27 10:38] LABS: Collection Time,Urine 24 hours; Total Volume,Urine 1650 mL (250-2400)
[2022-01-27 10:44] LABS: Creatinine 24 Hour,Urine 1304 mg/24hr (630-2500)
[2022-01-27 10:51] LABS: Creatinine,Urine Random 79 mg/dL (Not Estab.)
[2022-01-28 12:04] LABS: Calcium, Urine 15.2 mg/dL (Not Estab.); Calcium, Urine 24hr 258 mg/24 hr (0-320)
== END ==
PROVIDERS: Internal Medicine Endocrinology, Diabetes & Metabolism; PCP Family Medicine
DX: E83.52 Hypercalcemia (principal)
CPT/HCPCS: 82340; 82570

== ENCOUNTER → 2022-03-31 16:27 | Outpatient (CLI) | payer MEDICARE, SELFPAY ==
--- NOTE | 2022-03-31 16:45 | XR_ITS ---
PROCEDURE INFORMATION: Exam: XR Chest Exam date and time: 03/31/2022 4:48 PM Age: 67 years old Clinical indication: Condition or disease; Other: Neoplasm of trachea, bronchus, and lung; Additional info: Neoplasm of uncertain behavior of trachea, bronchus and lung TECHNIQUE: Imaging protocol: Radiologic exam of the chest. Views: 2 views. COMPARISON: CR XR RIBS RT MIN 3V W CXR1V 09/06/2021 12:11 PM FINDINGS: Tubes, catheters and devices: Surgical clips project over the right upper quadrant of the abdomen. Lungs: Low lung volumes. Mild central vascular congestion. 3 mm granulomatous calcification in the right upper lobe. 2.3 cm nodular density in the right perihilar region grossly unchanged and could represent nodule or loculated fissural fluid. Chronic bilateral basilar alveolar densities, probably chronic compressive atelectasis adjacent to pleural effusions although can not exclude chronic or recurrent pneumonia radiographically. Pleural spaces: Moderate right and small left pleural effusions not substantially changed in volume. No pneumothorax. Heart/Mediastinum: Heart size normal. No tracheal/mediastinal shift. Bones/joints: No acute osseous abnormalities are identified. IMPRESSION: 1. No significant radiographic change from 09/06/2021. 2. Moderate right and small left pleural effusions unchanged. 3. Bilateral basilar airspace disease unchanged, probably compressive atelectasis although can not exclude elements of chronic or recurrent basilar pneumonia radiographically. 4. 2.3 cm nodular density in the right perihilar region is unchanged.
== END ==
PROVIDERS: PCP Family Medicine; Visit Provider Family Medicine
DX: D38.1 Neoplasm of uncertain behavior of trachea, bronchus and lung (principal)
CPT/HCPCS: 71046

== ENCOUNTER → 2022-04-22 15:50 | Outpatient (CLI) | payer MEDICARE, SELFPAY ==
--- NOTE | 2022-04-22 16:01 | XR_ITS ---
FINAL REPORT CLINICAL HISTORY: F/U PLEURAL EFFUSION COMPARISON: March 31, 2022 FINDINGS: Two views of the chest were obtained. The heart size and pulmonary vascularity are within normal limits. The mediastinum is normal. There are persistent moderate right and small left pleural effusions. There are bibasilar opacities, favor atelectasis. There is a right lung base nodule measuring 20 mm which is not significantly changed. There is no pneumothorax. The bony thorax is intact. IMPRESSION: Persistent moderate and small left pleural effusions. Bibasilar opacities favor atelectasis. Stable 20 mm right lung base nodule. Reviewed, Interpreted and Dictated by Carlos Romero III, MD Transcribed by Jessica Whitlock Authenticated and [facility]
== END ==
PROVIDERS: PCP Family Medicine; Visit Provider Family Medicine
DX: J90 Pleural effusion, not elsewhere classified (principal)
CPT/HCPCS: 71046

== ENCOUNTER → 2022-05-01 08:27 | Outpatient (CLI) | payer MEDICARE, SELFPAY | PROVIDERS: PCP Family Medicine; Visit Provider Nurse Practitioner | DX: Z01.818 Encounter for other preprocedural examination (principal); Z11.52 Encounter for screening for COVID-19 | CPT/HCPCS: 36415; C9803; U0003; U0005 ==

== ENCOUNTER → 2022-05-02 07:47 | Outpatient (CLI) | payer MEDICARE, SELFPAY ==
--- NOTE | 2022-05-02 | XR_ITS ---
FINAL REPORT CLINICAL HISTORY: .post rt thora COMPARISON: April 22, 2022 FINDINGS: Two views of the chest were obtained. The heart size and pulmonary vascularity are within normal limits. The mediastinum is normal. Again noted is a right mid lung nodule measuring approximately 20 mm. There is significant improvement in a persistent small right pleural effusion. There is no pneumothorax. There is a moderate but worsening left pleural effusion. There is bibasilar atelectasis. There is no pneumothorax. The bony thorax is intact. IMPRESSION: Significantly improved small persistent right pleural effusion with a moderate but worsening left pleural effusion. 20 mm right mid lung nodule again noted. Reviewed, Interpreted and Dictated by Carlos Romero III, MD Transcribed by Jessica Whitlock Authenticated and [facility]
--- NOTE | 2022-05-02 07:57 | US_ITS ---
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
[2022-05-02 08:14] VITALS: BP 138/78; PULSE 86; RESP 16; TEMP 36.6; O2SAT 98
[2022-05-02 09:10] VITALS: BP 168/66; PULSE 72; RESP 18; TEMP 36.5; O2SAT 99
--- NOTE | 2022-05-02 09:10 | PC.NURSE ---
Pt arrived to post-op from Thoracentesis. A and O x3, denies pain, no SOA. Lungs diminished T/H but clear. VSS. Lg bandaid present R mid back C/D/I. brought pt breakfast. Without C/O, resting in bed watching TV.
[2022-05-02 09:25] VITALS: BP 168/68; PULSE 83; RESP 18; O2SAT 97
--- NOTE | 2022-05-02 09:25 | PC.NURSE ---
Pt continues without any C/O pain, SOA, or bleeding at site. Eating breakfast.
[2022-05-02 09:40] VITALS: BP 164/89; PULSE 77; RESP 18; O2SAT 98
== END ==
PROVIDERS: PCP Family Medicine; Visit Provider Family Medicine
DX: J90 Pleural effusion, not elsewhere classified (principal)
CPT/HCPCS: 32555; 71046

== ENCOUNTER → 2022-07-01 10:38 | Outpatient (CLI) | payer MEDICARE, SELFPAY ==
[2022-07-01 11:51] LABS: Basophils # 0.1 K/mm3 (0-0.2); Basophils % 2.3 % (0.1-2.0); Eosinophils # 0.2 K/mm3 (0.0-0.4); Eosinophils % 3.3 % (0.1-12.0); Hematocrit 41.8 % (37.0-47.0); Hemoglobin 13.4 g/dL (12.2-16.2); Lymphocytes # 0.8 K/mm3 (0.7-4.5); Lymphocytes % 14.8 % (10-50); Mean Corpuscular HGB Conc 32.1 g/dL (31.8-35.4); Mean Corpuscular Hemoglobin 29.9 pg (27.0-31.2); Mean Corpuscular Volume 93.1 fl (81-99); Mean Platelet Volume 8.1 fl (7.4-10.4); Monocytes # 0.4 K/mm3 (0.1-1.0); Monocytes % 7.6 % (1.7-9.3); Neutrophils # 3.7 K/mm3 (1.8-7.8); Platelet Count 255 K/mm3 (142-424); Red Blood Count 4.48 M/mm3 (4.20-5.40); Red Cell Distribution Width 14.1 % (11.5-17.5); White Blood Count 5.2 K/mm3 (4.8-10.8)
[2022-07-01 12:03] LABS: Alanine Aminotransferase 16 U/L (12-78); Albumin/Globulin Ratio 1.5 (1.1-1.8); Alkaline Phosphatase 66 U/L (38-126); Anion Gap 6.1 mEq/L (5-15); Aspartate Amino Transferase 27 U/L (14-36); Bilirubin,Total 0.3 mg/dl (0.2-1.3); Blood Urea Nitrogen 16 mg/dl (7-17); Calcium 8.6 mg/dl (8.4-10.2); Carbon Dioxide 28 mmol/L (22.0-30.0); Chloride 108 mmol/L (98-107); Estimated Glomerular Filt Rate 55 ml/min (>60); GFR (African American) 67 ML/MIN (>60); Globulin 2.7 g/dL (1.3-3.2); Glucose 93 mg/dl (74-100); Potassium 4.1 mmoL/L (3.5-5.1); Sodium 138 mmol/L (136-145); Total Protein,Serum 6.7 g/dl (6.3-8.2)
[2022-07-07 22:40] LABS: Interpretation: Negative (.)
== END ==
PROVIDERS: PCP Family Medicine; Visit Provider Internal Medicine Medical Oncology
DX: C92.10 Chronic myeloid leukemia, BCR/ABL-positive, not having achieved remission (principal); C50.911 Malignant neoplasm of unspecified site of right female breast; Z17.0 Estrogen receptor positive status [ER+]
CPT/HCPCS: 36415; 80053; 81206; 85025

== ENCOUNTER → 2022-07-02 09:53 | Outpatient (CLI) | payer MEDICARE, SELFPAY ==
--- NOTE | 2022-07-02 09:53 | MM_ITS ---
PROCEDURE INFORMATION: Exam: MG Bilateral Screening 3D Mammography Exam date and time: 07/02/2022 10:07 AM Age: 67 years old Clinical indication: Screening mammogram TECHNIQUE: Imaging protocol: Bilateral Screening tomosynthesis and 2D mammography including computer-aided detection (CAD) when performed. COMPARISON: 1. MG MM DIG SCREENING MAMM BI W/CAD 07/01/2021 10:10 AM 2. MG MM DIG SCREENING MAMM BI W/CAD 06/26/2020 3:31 PM 3. MG MM DIG MAMM DX UNILAT LT CAD 03/02/2020 2:17 PM 4. MG MM SURGICAL SPECIMEN RT 09/01/2019 12:13 PM FINDINGS: MAMMOGRAPHY: Breast composition: The breast is heterogeneously dense, which may obscure small masses. Mass: None. Architectural distortion: No new or suspicious architectural distortion. Calcifications: No new or suspicious calcifications are present Asymmetric density: No new or suspicious asymmetric density is present Skin thickening: None. Axillary adenopathy: None. Other findings: Stable postoperative findings on the right. IMPRESSION: No mammographic evidence of malignancy. Recommend annual screening mammography unless otherwise clinically indicated. ASSESSMENT: BI-RADS category 2: Benign
== END ==
PROVIDERS: PCP Family Medicine; Visit Provider Surgery
DX: Z12.31 Encounter for screening mammogram for malignant neoplasm of breast (principal)
CPT/HCPCS: 77063; 77067

== ENCOUNTER → 2022-09-09 09:33 | Outpatient (POV) | payer MEDICARE, SELFPAY | PROVIDERS: Visit Provider Dermatology | DX: Z00.00 Encounter for general adult medical examination without abnormal findings (principal) ==

== ENCOUNTER → 2022-11-25 09:32 | Outpatient (POV) | payer MEDICARE, SELFPAY | PROVIDERS: Visit Provider Dermatology | DX: Z00.00 Encounter for general adult medical examination without abnormal findings (principal) ==

== ENCOUNTER → 2023-02-09 12:04 | Outpatient (CLI) | payer MEDICARE, SELFPAY ==
[2023-02-09 12:54] LABS: Basophils % 0.5 % (0.1-2.0); Eosinophils # 0.2 K/mm3 (0.0-0.4); Eosinophils % 4.6 % (0.1-12.0); Lymphocytes # 0.7 K/mm3 (0.7-4.5); Lymphocytes % 15.1 % (10-50); Mean Corpuscular HGB Conc 31.6 g/dL (31.8-35.4); Mean Corpuscular Volume 91.6 fl (81-99); Mean Platelet Volume 8.3 fl (7.4-10.4); Monocytes # 0.3 K/mm3 (0.1-1.0); Monocytes % 6.8 % (1.7-9.3); Neutrophils # 3.2 K/mm3 (1.8-7.8); Platelet Count 237 K/mm3 (142-424); Red Blood Count 4.47 M/mm3 (4.20-5.40); Red Cell Distribution Width 14.2 % (11.5-17.5); White Blood Count 4.4 K/mm3 (4.8-10.8)
[2023-02-09 13:12] LABS: Alanine Aminotransferase 18 U/L (12-78); Albumin Level 4.1 g/dl (3.5-5.0); Albumin/Globulin Ratio 1.4 (1.1-1.8); Alkaline Phosphatase 54 U/L (38-126); Anion Gap 12.1 mEq/L (5-15); Aspartate Amino Transferase 27 U/L (14-36); Bilirubin,Total 0.3 mg/dl (0.2-1.3); Blood Urea Nitrogen 16 mg/dl (7-17); Calcium 8.9 mg/dl (8.4-10.2); Carbon Dioxide 28 mmol/L (22.0-30.0); Chloride 105 mmol/L (98-107); Estimated Glomerular Filt Rate 55 ml/min (>60); GFR (African American) 66 ML/MIN (>60); Globulin 2.9 g/dL (1.3-3.2); Glucose 98 mg/dl (74-100); Potassium 4.1 mmoL/L (3.5-5.1); Sodium 141 mmol/L (136-145)
[2023-02-16 14:10] LABS: Interpretation: Negative (.)
== END ==
LOC: LAB 12:06
PROVIDERS: PCP Family Medicine; Visit Provider Internal Medicine Medical Oncology
DX: C92.10 Chronic myeloid leukemia, BCR/ABL-positive, not having achieved remission (principal)
CPT/HCPCS: 36415; 80053; 81206; 85025

== ENCOUNTER 2023-04-04 11:07 | Emergency (ER) | payer MEDICARE, SELFPAY ==
[2023-04-04 12:15] VITALS: BP 166/80; PULSE 68; RESP 18; TEMP 36.8; O2SAT 94; BMI 28.7
--- NOTE | 2023-04-04 12:59 | EXP.UTC ---
Discharge Plan Disposition Patient Disposition: Home, Self-Care Condition: Good Prescriptions Prescriptions: New amoxicillin [amoxicillin] 500 mg tablet 500 mg PO BID 10 Days Qty: 20 0RF fluticasone propionate [fluticasone propionate] 50 mcg/actuation spray,suspension 1 spray intranasal DAILY Qty: 9.9 0RF No Action levothyroxine [Synthroid] 112 mcg tablet 112 mcg PO Q OTHER DAY levothyroxine [Synthroid] 125 mcg tablet 125 mcg PO Q OTHER DAY atorvastatin [Lipitor] 10 mg tablet 10 mg PO ONCE Sprycel 70 mg tablet 70 mg PO DAILY ascorbate calcium (vitamin C) 500 mg tablet 600 mg PO BID anastrozole 1 MG tablet 1 mg PO DAILY cholecalciferol (vitamin D3) 1,000 UNIT capsule 2,000 unit PO DAILY aspirin 81 MG tablet,delayed release (DR/EC) 81 mg PO DAILY Referrals Follow up/Referrals: Seth Fry MD [Primary Care Provider] - See instructions Activity Restrictions/Add. Instructions Additional Instructions/Restrictions: Start antibiotic patient to take as ordered for a full length of time even if you feel better. Sinus infections do not get better overnight. It may take 2-3 days to notice much improvement so be sure to use conservative measures as discussed for symptoms. Flonase 1 spray each nostril daily to help with nasal congestion, sinus and ear pressure/information Increase fluids Humidifier/vaporizer as needed Tylenol and ibuprofen as needed for fever or pain. If symptoms do not improve or get worse return or be seen in the ER Follow-up with primary care this week Clinical Impressions Clinical Impression: Sinusitis, acute Qualifiers: Sinusitis location: maxillary Recurrence: non-recurrent Qualified Code(s): J01.00 - Acute maxillary sinusitis, unspecified Instructions Patient Instructions: DI for Sinusitis Discharge ED Provider: Sagar ([facility])[place] [facility] [place] General Stated complaint: cough,cold Mode of Arrival: Ambulatory Source of Information: Patient Limitations: No Limitations Time Seen by Provider: 04/04/23 12:59 Description of Symptoms (Recalled from Triage Doc. by RN): cough and congestion HEENT Symptoms (Recalled from RN notes): Yes Resp Symptoms (Recalled from RN notes): No Skin Symptoms (Recalled from RN notes): No MS Symptoms (Recalled from RN notes): No Functional Status (Recalled from RN notes): n/a History of Present Illness Provider Complaint: 68 yr old female presents for yellow/green drainage, chest congestion and sinus pressure Related Data Home Medications Medication Instructions Recorded Confirmed atorvastatin 10 mg tablet (Lipitor) 10 mg PO ONCE Cholesterol 11/19/17 04/04/23 aspirin 81 mg tablet,delayed 81 mg PO DAILY Blood thinner 11/23/17 04/04/23 release anastrozole 1 mg tablet 1 mg PO DAILY BREAST CANCER 01/30/20 04/04/23 dasatinib 70 mg tablet (Sprycel) 70 mg PO DAILY CML 02/28/20 04/04/23 cholecalciferol (vitamin D3) 25 2,000 unit PO DAILY Supplement 04/03/21 04/04/23 mcg (1,000 unit) capsule levothyroxine 112 mcg tablet 112 mcg PO Q OTHER DAY 07/10/22 04/04/23 (Synthroid) levothyroxine 125 mcg tablet 125 mcg PO Q OTHER DAY 07/10/22 04/04/23 (Synthroid) ascorbate calcium (vitamin C) 500 600 mg PO BID 01/14/23 04/04/23 mg tablet Previous Rx's Medication Instructions Recorded amoxicillin 500 mg tablet 500 mg PO BID 10 days #20 tabs 04/04/23 fluticasone propionate 50 1 spray intranasal DAILY #9.9 mL 04/04/23 mcg/actuation nasal spray,suspension Allergies Allergy/AdvReac Type Severity Reaction Status Date / Time Sulfa (Sulfonamide Allergy Unknown Verified 04/04/23 12:39 Antibiotics) allergy reaction Worker's Comp Is this a Worker's Comp case?: No [facility] Disclaimer: The information contained in this section may have been updated after the patient was seen, as this information can be updated by other users. Medical History (Reviewed 04/04/23 @ 13:05 by
[2023-04-04 13:13] VITALS: BP 166/80; PULSE 68; RESP 18; TEMP 36.8; O2SAT 94
== END 2023-04-04 13:13 | disposition home or self-care (01) ==
PROVIDERS: Emergency Provider Nurse Practitioner Family; PCP Family Medicine
DX: J01.00 Acute maxillary sinusitis, unspecified (principal); R05.9 Cough, unspecified; R09.89 Other specified symptoms and signs involving the circulatory and respiratory systems; R09.81 Nasal congestion; R09.82 Postnasal drip; R07.0 Pain in throat
CPT/HCPCS: 99212; 99214; G0463

== ENCOUNTER 2023-07-08 16:49 | Outpatient (CLI) | payer MEDICARE, SELFPAY ==
--- NOTE | 2023-07-08 16:52 | MM_ITS ---
PROCEDURE INFORMATION: Exam: MG Bilateral Screening 3D Mammography Exam date and time: 07/08/2023 4:39 PM Age: 68 years old Clinical indication: Screening examination. Personal history of right lumpectomy, status post radiation therapy (as indicated in 06/28/2020 mammogram report). Note, on clinical history form, patient indicates no history of breast cancer, please correlate with clinical and interventional history. TECHNIQUE: Imaging protocol: Bilateral Screening tomosynthesis and 2D mammography including computer-aided detection (CAD) when performed. COMPARISON: 1. MG MM DIG SCREENING MAMM BI W/CAD 07/02/2022 10:07 AM 2. MG MM DIG SCREENING MAMM BI W/CAD 07/01/2021 10:10 AM 3. MG MM DIG SCREENING MAMM BI W/CAD 06/26/2020 3:31 PM 4. MG MM DIG MAMM DX UNILAT LT CAD 03/02/2020 2:17 PM FINDINGS: MAMMOGRAPHY: Breast composition: The breasts are heterogeneously dense, which may obscure small masses. Mass: No suspicious mass. Architectural distortion: Stable right architectural distortion with surgical clips status post lumpectomy. Calcifications: No suspicious calcifications. Asymmetric density: None. Skin thickening: Stable symmetric bilateral skin thickening. Axillary adenopathy: None. IMPRESSION: No mammographic evidence of malignancy. Annual screening is recommended unless otherwise clinically indicated. In women diagnosed with breast cancer before age 50 or with personal histories of breast cancer and dense breasts, the [employer] recommends annual supplemental MRI in addition to yearly mammography. Alternative supplemental studies may include breast sonography or contrast enhanced mammography. Please be aware that your insurance company will determine whether they will cover the cost of such screening, despite the recommendation of your doctors and the [employer]. It is your responsibility to determine your insurance benefits. ASSESSMENT: BI-RADS Category 2: Benign.
== END 2023-07-08 23:59 ==
LOC: RAD 16:50
PROVIDERS: PCP Family Medicine; Visit Provider Surgery
DX: Z12.31 Encounter for screening mammogram for malignant neoplasm of breast (principal)
CPT/HCPCS: 77063; 77067

== ENCOUNTER 2023-08-10 11:11 | Outpatient (CLI) | payer MEDICARE, SELFPAY ==
[2023-08-10 11:49] LABS: Basophils % 0.9 % (0.1-2.0); Eosinophils # 0.1 K/mm3 (0.0-0.4); Eosinophils % 2.8 % (0.1-12.0); Hematocrit 42.6 % (37.0-47.0); Hemoglobin 13.9 g/dL (12.2-16.2); Lymphocytes # 0.8 K/mm3 (0.7-4.5); Lymphocytes % 19.8 % (10-50); Mean Corpuscular HGB Conc 32.7 g/dL (31.8-35.4); Mean Corpuscular Hemoglobin 30.3 pg (27.0-31.2); Mean Corpuscular Volume 92.9 fl (81-99); Mean Platelet Volume 8.3 fl (7.4-10.4); Monocytes # 0.3 K/mm3 (0.1-1.0); Monocytes % 7.6 % (1.7-9.3); Neutrophils # 2.8 K/mm3 (1.8-7.8); Neutrophils % 68.8 % (37.0-80.0); Platelet Count 235 K/mm3 (142-424); Red Blood Count 4.58 M/mm3 (4.20-5.40); Red Cell Distribution Width 14.6 % (11.5-17.5); White Blood Count 4.1 K/mm3 (4.8-10.8)
[2023-08-10 12:18] LABS: Chol/HDL Ratio 2.6 (1-3.5); Cholesterol 155 mg/dl (140-200); HDL Cholesterol 59 mg/dl (40-60); Triglycerides 110 mg/dl (30-150); VLDL Cholesterol 22 mg/dL (0-40)
[2023-08-10 12:21] LABS: Alanine Aminotransferase 19 U/L (12-78); Albumin Level 4.2 g/dl (3.5-5.0); Albumin/Globulin Ratio 1.6 (1.1-1.8); Alkaline Phosphatase 65 U/L (38-126); Anion Gap 10.3 mEq/L (5-15); Aspartate Amino Transferase 32 U/L (14-36); Bilirubin,Total 0.4 mg/dl (0.2-1.3); Blood Urea Nitrogen 20 mg/dl (7-17); Calcium 9.4 mg/dl (8.4-10.2); Carbon Dioxide 28 mmol/L (22.0-30.0); Chloride 104 mmol/L (98-107); Estimated Glomerular Filt Rate 49 ml/min (>60); GFR (African American) 59 ML/MIN (>60); Globulin 2.7 g/dL (1.3-3.2); Glucose 93 mg/dl (74-100); Potassium 4.3 mmoL/L (3.5-5.1); Sodium 138 mmol/L (136-145); Total Protein,Serum 6.9 g/dl (6.3-8.2)
[2023-08-10 12:29] LABS: Direct LDL Cholesterol 60.06 mg/dL (100-129)
[2023-08-17 13:00] LABS: Interpretation: Negative (.)
[2023-08-18 09:04] LABS: PDF: SCANNED IMAGE
== END 2023-08-10 23:59 | disposition home or self-care (01) ==
LOC: LAB 11:12
PROVIDERS: PCP Family Medicine; Visit Provider Internal Medicine Medical Oncology
DX: C50.911 Malignant neoplasm of unspecified site of right female breast; C92.10 Chronic myeloid leukemia, BCR/ABL-positive, not having achieved remission; Z79.899 Other long term (current) drug therapy
CPT/HCPCS: 36415; 80053; 80061; 81206; 85025

== ENCOUNTER 2023-10-27 08:00 | Outpatient (RCR) | payer MEDICARE, SELFPAY | END 2023-10-27 08:05 | disposition home or self-care (01) | LOC: PT 08:00 | PROVIDERS: Visit Provider Dermatology | DX: M79.661 Pain in right lower leg (principal) | CPT/HCPCS: 97163; 97164; 97597 ==

== ENCOUNTER 2024-01-06 14:45 | Outpatient (CLI) | payer MEDICARE, SELFPAY ==
[2024-01-06 15:25] LABS: Basophils # 0.1 K/mm3 (0-0.2); Basophils % 0.9 % (0.1-2.0); Eosinophils # 0.2 K/mm3 (0.0-0.4); Eosinophils % 2.6 % (0.1-12.0); Hematocrit 39.7 % (37.0-47.0); Hemoglobin 12.8 g/dL (12.2-16.2); Lymphocytes # 0.7 K/mm3 (0.7-4.5); Lymphocytes % 12.7 % (10-50); Mean Corpuscular HGB Conc 32.3 g/dL (31.8-35.4); Mean Corpuscular Hemoglobin 30.5 pg (27.0-31.2); Mean Corpuscular Volume 94.6 fl (81-99); Mean Platelet Volume 8.2 fl (7.4-10.4); Monocytes # 0.4 K/mm3 (0.1-1.0); Monocytes % 7.5 % (1.7-9.3); Neutrophils # 4.2 K/mm3 (1.8-7.8); Neutrophils % 76.3 % (37.0-80.0); Platelet Count 260 K/mm3 (142-424); Red Cell Distribution Width 14.8 % (11.5-17.5); White Blood Count 5.6 K/mm3 (4.8-10.8)
[2024-01-06 16:11] LABS: Alanine Aminotransferase 18 U/L (12-78); Albumin Level 3.6 g/dl (3.5-5.0); Albumin/Globulin Ratio 1.2 (1.1-1.8); Alkaline Phosphatase 60 U/L (38-126); Anion Gap 9.2 mEq/L (5-15); Aspartate Amino Transferase 30 U/L (14-36); Bilirubin,Total 0.4 mg/dl (0.2-1.3); Blood Urea Nitrogen 17 mg/dl (7-17); Calcium 8.8 mg/dl (8.4-10.2); Carbon Dioxide 28 mmol/L (22.0-30.0); Chloride 106 mmol/L (98-107); Estimated Glomerular Filt Rate 49 ml/min (>60); GFR (African American) 59 ML/MIN (>60); Globulin 2.9 g/dL (1.3-3.2); Glucose 108 mg/dl (74-100); Potassium 4.2 mmoL/L (3.5-5.1); Sodium 139 mmol/L (136-145); Total Protein,Serum 6.5 g/dl (6.3-8.2)
[2024-01-20 17:13] LABS: Interpretation: Negative (.); e13a2 (b2a2) transcript <0.0032 % % (.); e14a2 (b3a2) transcript <0.0032 % % (.); e1a2 transcript <0.0032 % % (.)
[2024-01-21 16:03] LABS: PDF: SCANNED IMAGE
== END 2024-01-06 23:59 | disposition home or self-care (01) ==
LOC: LAB 14:46
PROVIDERS: PCP Family Medicine; Visit Provider Internal Medicine Medical Oncology
DX: C92.10 Chronic myeloid leukemia, BCR/ABL-positive, not having achieved remission (principal)
CPT/HCPCS: 36415; 80053; 81206; 85025

== ENCOUNTER 2024-01-07 09:03 | Emergency (ER) | payer MEDICARE, SELFPAY ==
[2024-01-07 09:04] VITALS: BP 148/85; PULSE 67; RESP 18; TEMP 36.6; O2SAT 93; BMI 28.7
--- NOTE | 2024-01-07 09:10 | ECG_ITS ---
APPROVED REPORT Exam: Resting ECG HR:64 bpm ECG Measurements Heart Rate 64 AXES OK 147 P 37 QRSd 82 QRS 57 QT 400 T 40 QTc 409 Conclusion SINUS RHYTHM Electronically signed by : MIESHA JAIMES, 01/07/2024 15:43:55
--- NOTE | 2024-01-07 09:22 | XR_ITS ---
FINAL REPORT CLINICAL HISTORY: dizziness COMPARISON: 04/22/2022 FINDINGS: TWO-VIEW CHEST The heart size is normal. The mediastinum is normal. There are worsening bibasilar opacities, favor atelectasis. There are moderate right and severe left pleural effusions, stable. Right lung base nodule measuring 19 mm is visually stable since previous. There is no pneumothorax. IMPRESSION: Visually stable right lung base nodule. Bilateral pleural effusions, left greater than right. Worsening bibasilar atelectasis. Reviewed, Interpreted and Dictated by Carlos Romero III, MD Transcribed by Edilma Dc Authenticated and [facility]
[2024-01-07 09:30] VITALS: BP 145/79; PULSE 70; O2SAT 92
[2024-01-07 09:33] LABS: Basophils % 0.7 % (0.1-2.0); Eosinophils # 0.2 K/mm3 (0.0-0.4); Eosinophils % 3.2 % (0.1-12.0); Hematocrit 44.2 % (37.0-47.0); Hemoglobin 13.9 g/dL (12.2-16.2); Lymphocytes # 1.5 K/mm3 (0.7-4.5); Lymphocytes % 24.5 % (10-50); Mean Corpuscular HGB Conc 31.4 g/dL (31.8-35.4); Mean Corpuscular Hemoglobin 30.4 pg (27.0-31.2); Mean Corpuscular Volume 96.9 fl (81-99); Mean Platelet Volume 8.3 fl (7.4-10.4); Monocytes # 0.4 K/mm3 (0.1-1.0); Monocytes % 7.3 % (1.7-9.3); Neutrophils # 3.8 K/mm3 (1.8-7.8); Neutrophils % 64.2 % (37.0-80.0); Platelet Count 275 K/mm3 (142-424); Red Blood Count 4.56 M/mm3 (4.20-5.40); Red Cell Distribution Width 14.8 % (11.5-17.5)
[2024-01-07 09:40] LABS: Alanine Aminotransferase 21 U/L (12-78); Albumin Level 3.9 g/dl (3.5-5.0); Albumin/Globulin Ratio 1.2 (1.1-1.8); Alkaline Phosphatase 56 U/L (38-126); Aspartate Amino Transferase 34 U/L (14-36); Bilirubin,Total 0.5 mg/dl (0.2-1.3); Blood Urea Nitrogen 16 mg/dl (7-17); Calcium 8.7 mg/dl (8.4-10.2); Carbon Dioxide 26 mmol/L (22.0-30.0); Chloride 107 mmol/L (98-107); Creatinine Clearance Estimated 75 mL/min (50-200); Estimated Glomerular Filt Rate 62 ml/min (>60); GFR (African American) 75 ML/MIN (>60); Globulin 3.2 g/dL (1.3-3.2); Glucose 109 mg/dl (74-100); Sodium 137 mmol/L (136-145); Total Protein,Serum 7.1 g/dl (6.3-8.2)
--- NOTE | 2024-01-07 09:43 | CT_ITS ---
FINAL REPORT CLINICAL HISTORY: new persisntent dizziness, nonfocal exam FINDINGS: Axial images of the head were obtained without contrast. Coronal reformatted images were also obtained.This study was performed with techniques to keep radiation doses as low as reasonably achievable (ALARA). Individualized dose reduction techniques using automated exposure control or adjustment of mA and/or kV according to the patient's size were employed. There is no evidence of intracranial hemorrhage. There is a partially calcified left frontal mass measuring 26 mm, likely extra-axial. This may represent a meningioma. The ventricular size is within normal limits. There is no evidence of shift of the midline structures. No abnormal extra axial fluid collection is identified. No skull abnormality is seen on the bone window images. IMPRESSION: No acute intracranial abnormality. Partially calcified left frontal mass, may represent a meningioma. Reviewed, Interpreted and Dictated by Carlos Romero III, MD Transcribed by Edilma Dc Authenticated and [facility]
--- NOTE | 2024-01-07 09:43 | CT_ITS ---
FINAL REPORT TECHNIQUE: Thin section axial CT with IV contrast supplemented with multiplanar reconstruction under CT angiogram protocol. 3-D reconstructions were performed. This study was performed with techniques to keep radiation doses as low as reasonably achievable (ALARA). Individualized dose reduction techniques using automated exposure control or adjustment of mA and/or kV according to the patient''s size were employed. CLINICAL HISTORY: new persistent dizziness, no history. nonfocal exa FINDINGS: The distal vertebral, basilar and distal internal carotid arteries have an unremarkable appearance. No aneurysm is seen. Major intracranial vessels are patent without significant stenosis. IMPRESSION: There is no evidence of stenosis or major branch occlusion. Reviewed, Interpreted and Dictated by Carlos Romero III, MD Transcribed by Edilma Dc Authenticated and . [facility]
--- NOTE | 2024-01-07 09:43 | CT_ITS ---
FINAL REPORT TECHNIQUE: Thin section axial CT with IV contrast supplemented with multiplanar reconstruction under CT angiogram protocol. This study was performed with techniques to keep radiation doses as low as reasonably achievable (ALARA). Individualized dose reduction techniques using automated exposure control or adjustment of mA and/or kV according to the patient''s size were employed. NASCET criteria was utilized during interpretation. CLINICAL HISTORY: new persistent dizziness, no history. nonfocal exa FINDINGS: Aortic arch: Arch shows no significant narrowing. Great vessel origins are widely patent. Right carotid: No significant stenosis is seen of the cervical common or internal carotid artery. Left carotid: No significant stenosis is seen of the cervical common or internal carotid artery. Vertebral: The vertebral arteries are codominant. No significant stenosis is present. IMPRESSION: There is no evidence of stenosis. Reviewed, Interpreted and Dictated by Carlos Romero III, MD Transcribed by Edilma Dc Authenticated and [facility]
[2024-01-07 09:50] LABS: NT Pro Brain Natriuretic Pep. 164 pg/mL (0-125)
[2024-01-07] MEDS: MECLIZINE 25MG TABLET 50 MG PO (09:54)
[2024-01-07 09:59] LABS: Chol/HDL Ratio 2.2 (1-3.5); Cholesterol 158 mg/dl (140-200); HDL Cholesterol 72 mg/dl (40-60); Triglycerides 96 mg/dl (30-150); VLDL Cholesterol 19 mg/dL (0-40)
[2024-01-07 10:01] LABS: Troponin I < 0.01 ng/ml (0.00-0.034)
--- NOTE | 2024-01-07 10:02 | ED_ITS ---
Discharge Plan Disposition Patient Disposition: Home, Self-Care Prescriptions Prescriptions: New meclizine 25 mg tablet 25 mg PO QID PRN (Reason: dizziness) Qty: 30 0RF No Action levothyroxine [Synthroid] 112 mcg tablet 112 mcg PO erythromycin 5 mg/gram (0.5 %) ointment 0.5 inch ophthalmic (eye) BID Qty: 3.5 0RF atorvastatin [Lipitor] 10 mg tablet 10 mg PO ONCE Sprycel 70 mg tablet 70 mg PO DAILY anastrozole 1 MG tablet 1 mg PO DAILY cholecalciferol (vitamin D3) 1,000 UNIT capsule 2,000 unit PO DAILY aspirin 81 MG tablet,delayed release (DR/EC) 81 mg PO DAILY Referrals Follow up/Referrals: Seth Fry MD [Primary Care Provider] - See instructions Activity Restrictions/Add. Instructions Additional Instructions/Restrictions: Call your family doctor to establish care for this visit to the emergency department and schedule follow-up within 48 hours to ensure improvement. If you have any worsening of your condition or any other concerning signs or symptoms, return to the emergency department or your primary care doctor for further evaluation. Meclizine as needed for dizziness. Talk to your radio engineer about draining bilateral pleural effusions. Clinical Impressions Clinical Impression: Bilateral pleural effusion, Dizziness Print Language Print Language: [place] Discharge ED Provider: Gerald Hines General Adult HPI General Chief complaint: Dizziness Stated complaint: dizzy, nauseous Time Seen by Provider: 01/07/24 09:11 Mode of Arrival: Ambulatory Source of Information: Patient Limitations: No Limitations Description of Symptoms (Recalled from ER Triage Doc. by RN): c/o dizziness and nausea since she work up around 0800, pt reports that she got up for the bathroom and did not have those symptoms. is concerned with some left leg swelling over the past 3 days, pt reports that she has some swelling for the past 6 years due to some of her medicine she takes, denies redness or pain in leg, hx of needing fluid taking off her right lung in the past 4 times. Denies any soa at this time History of Present Illness HPI narrative: Please note that above description of symptoms, in this electronic medical record under categorization of recalled from ER triage doctor by RN are reflective of an initial nursing assessment, however, is not reflective of my full history and physical exam that was personally taken and clarified. Consequentially, this preceding description of symptoms, which may include the patient's categorized chief complaint in the EMR, do not reflect my personal clinical impression, and the ultimate description of history of present illness and patient stated complaints should be deferred to this section of the note. Unless stated otherwise or congruent with this section of the note, additional signs, symptoms, or incongruence should be interpreted as inaccurate with my clinical impression. Related Data Home Medications ?Medication ?Instructions ?Recorded ?Confirmed atorvastatin 10 mg tablet (Lipitor) 10 mg PO ONCE Cholesterol 11/19/17 12/24/23 aspirin 81 mg tablet,delayed 81 mg PO DAILY Blood thinner 11/23/17 12/24/23 release anastrozole 1 mg tablet 1 mg PO DAILY BREAST CANCER 01/30/20 12/24/23 dasatinib 70 mg tablet (Sprycel) 70 mg PO DAILY CML 02/28/20 12/24/23 cholecalciferol (vitamin D3) 25 2,000 unit PO DAILY Supplement 04/03/21 12/24/23 mcg (1,000 unit) capsule levothyroxine 112 mcg tablet 112 mcg PO 08/27/23 12/24/23 (Synthroid) Previous Rx's ?Medication ?Instructions ?Recorded erythromycin 5 mg/gram (0.5 %) eye 0.5 inch ophthalmic (eye) BID #3.5 12/24/23 ointment grams meclizine 25 mg tablet 25 mg PO QID PRN dizziness #30 tabs 01/07/24 Allergies Allergy/AdvReac Type Severity Reaction Status Date / Time Sulfa (Sulfonamide Allergy Unknown Verified 12/24/23 15:34 Antibiotics) allergy reaction PFSH [facility] Disclaimer: The information contained in this section may have been updated after the patient was seen, as this information can be updated by other users. Medical History Pleural effusion sincd 2019 Palpitations Cardiomyopathy Breast cancer Thyroid cancer Chest congestion Epigastric abdominal pain Chest pain Breast erythema Improving. Punch biopsy reveals no sign of malignancy. CML (chronic myelocytic leukemia) Bronchitis Surgical History History of lumpectomy of right breast H/O thyroidectomy H/O: hysterectomy History of breast biopsy History of colonoscopy Family History Father Skin cancer Grandmother Family history of myocardial infarction Mother Family history of stroke Social History Smoking Status: Never smoker second hand exposure: No alcohol intake: never substance use type: denies use current occupational status: retired Travel in the last 8 weeks: Inside the [place] household members: spouse housing: house current occupational exposures/hazards: No caffeine: No ROS Obtained: Yes All systems reviewed & no additional complaints except as documented Physical Exam General General appearance: alert Head Head exam: atraumatic and normocephalic Eye Eye exam: Present normal appearance, PERRL and EOMI Neck Neck exam: Present normal inspection, full ROM and trachea midline Respiratory Respiratory exam: Absent respiratory distress, wheezes, stridor, accessory muscle use or prolonged expiratory phase Cardiovascular Cardiovascular exam: Present other (Pulses equal symmetric in upper and lower extremities) Abdominal Exam Abdominal exam: Present soft; Absent distention, tenderness or pulsatile mass Extremities Exam Extremities exam: Absent edema Neurological Exam Neurological exam: Present alert, oriented X3 and CN II-XII intact; Absent motor sensory deficit Skin Skin exam: Present warm and dry; Absent diaphoresis or erythema Medical Decision Making Medical Records Medical records reviewed: Yes I reviewed the patient's medical records. Emeka Inquiry Pt receiving controlled substance: No Emeka was queried for this patient: No Vital Signs: 01/07/24 09:04 01/07/24 09:30 01/07/24 10:30 Temperature 97.8 F Temperature Source Oral Pulse Rate 70 74 Pulse Rate [Left Radial] 67 Respiratory Rate 18 Blood Pressure 145/79 H 142/81 H Blood Pressure [Right Arm] 148/85 H Blood Pressure Mean Blood Pressure Mean [Right Arm] 106 Blood Pressure Source [Right Arm] Automatic Cuff Blood Pressure Position [Right Arm] Sitting 02 Sat by Pulse Oximetry 93 L 92 L 94 L Oxygen Delivery Method Room Air Room Air Room Air 01/07/24 11:00 01/07/24 11:12 Temperature Temperature Source Pulse Rate 62 67 Pulse Rate [Left Radial] Respiratory Rate Blood Pressure 126/79 138/80 Blood Pressure [Right Arm] Blood Pressure Mean 101 98 Blood Pressure Mean [Right Arm] Blood Pressure Source [Right Arm] Blood Pressure Position [Right Arm] 02 Sat by Pulse Oximetry 96 96 Oxygen Delivery Method Lab Data Lab Results 01/07/24 09:10: WBC 6.0, RBC 4.56, Hgb 13.9, Hct 44.2, MCV 96.9, MCH 30.4, MCHC 31.4 L, RDW 14.8, Plt Count 275, MPV 8.3, Neut % (Auto) 64.2, Lymph % (Auto) 24.5, Eddy % (Auto) 7.3, Eos % (Auto) 3.2, Baso % (Auto) 0.7, Neut # (Auto) 3.8, Lymph # (Auto) 1.5, Eddy # (Auto) 0.4, Eos # (Auto) 0.2, Baso # (Auto) 0.0, Sodium 137, Potassium 4.0, Chloride 107, Carbon Dioxide 26, Anion Gap 8.0, BUN 16, Creatinine 0.90, Estimated Creat Clear 75, Estimated GFR 62, Est GFR ( Amer) 75 D, Glucose 109 H, Hemoglobin A1c 5.5, Calcium 8.7, Total Bilirubin 0.5, AST 34, ALT 21, Alkaline Phosphatase 56, Troponin I < 0.01, N T-Pro-B Natriuret Pep 164 H, Total Protein 7.1, Albumin 3.9, Globulin 3.2, Albumin/Globulin Ratio 1.2, Triglycerides 96, Cholesterol 158, LDL Cholesterol Direct 66.02 L, VLDL Cholesterol 19, HDL Cholesterol 72 H, Cholesterol/HDL Ratio 2.2 01/07/24 09:10 01/07/24 09:10 Orders (Tests/Meds): ED MEDICATIONS Discontinued Medications Generic Name Dose Route Start Last Admin Trade Name Casey PRN Reason Stop Dose Admin Iopamidol 85 ml 01/07/24 10:14 01/07/24 10:15 Iopamidol-370 (76%);100ml Bottle IV 01/07/24 10:15 85 ml ONCE ONE Administration Meclizine HCl 50 mg 01/07/24 09:43 01/07/24 09:54 Meclizine 25mg Tablet PO 01/07/24 09:44 50 mg ONCE ONE Administration Sodium Chloride 50 ml 01/07/24 10:14 01/07/24 10:15 0.9 % Sodium Chloride 50 Ml Vial IV 01/07/24 10:15 50 ml ONCE ONE Administration Sodium Chloride 10 ml 01/07/24 10:14 01/07/24 10:15 Sodium Chloride 0.9% 10ml Syr (Rad Only) IV 01/07/24 10:15 10 ml ONCE ONE Administration ORDERS Category Date Time Status CT angio head Stat Cat Scan 01/07/24 09:[address] angio neck Stat Cat Scan 01/07/24 09:[address] head/brain wo con Stat Cat Scan 01/07/24 09:43 Completed XR chest 2V Stat Exams 01/07/24 09:22 Completed BNP [NT Pro Brain Natriuretic Pep.] Stat Lab 01/07/24 09:10 Completed Complete Blood Count Auto Diff Stat Lab 01/07/24 09:10 Completed Comprehensive Metabolic Panel Stat Lab 01/07/24 09:10 Completed Hemoglobin A1C Stat Lab 01/07/24 09:10 Completed Lipid Panel Stat Lab 01/07/24 09:10 Completed Troponin I Q3H Lab 01/07/24 12:30 Ordered Troponin I Q3H Lab 01/07/24 15:30 Ordered Troponin I Stat Lab 01/07/24 09:10 Completed Medical Decision Narrative: 68-year-old female history of hypertension, hyperlipidemia, CML currently in remission, pleural effusion presenting with dizziness. Started this morning when patient woke up. She woke up around 8 AM states that she felt dizzy at that time. Dizzy even when she closed her eyes. Nausea without vomiting. No neurologic deficits including weakness, numbness, tingling, falling to 1 side, vision changes, etc. No chest pain, shortness of breath, or any other symptoms. Dizziness is made better with rest, laying still, made worse with turning head and changes in position. Does not have a history of dizziness or vertigo. No recent travel, medication changes, etc. History was obtained via conversation with patient and . On arrival, patient hemodynamically stable, alert, oriented x4, appropriate, GCS 15, moving all extremities spontaneously, pupils equal and reactive to light. Full physical exam performed and significant for well-appearing female who is in no acute distress. Lying in a dark room eyes are closed on stretcher. No nystagmus at rest. Neurologically intact including cranial nerve, cerebellar, motor, sensory, and ambulatory trial. Cardiac exam normal, no lower extremity edema. Pulses equal and symmetric. Differential includes embolic stroke, thrombotic stroke, intracranial hemorrhage, posterior circulation stroke, dissection, metabolic abnormality, endocrinologic abnormality, ACS, NH, arrhythmia, among others. Patient placed on continuous cardiac monitoring and continuous pulse ox with initial blood pressure 148/85, heart rate 67, saturation 93% on room air. Independent interpretation of EKG shows sinus rhythm 64 beats a minute no ST or T wave changes concerning for acute ischemia. AL 147, QRS 82, QTc 4 9. Patient was given meclizine p.o. for symptomatic management and correction of underlying abnormalities. Workup independently interpreted and significant for nonactionable CBC, chemistry, coags, troponin, BNP. Unremarkable hematologic labs. On independent interpretation of imaging, patient has bilateral effusions, which is known to her. CT head, CTA head and neck without acute intracranial or extracranial abnormality. See radiology read for full review of final results. Heart score 2. On reevaluation, patient states she feels much better with meclizine, no longer feeling dizzy, but intermittently feeling woozy, with changes in position. Given patient presentation, workup, history, this most likely represents peripheral vertigo. Strict return precautions given were given, patient deemed appropriate for outpatient management. Because patient at baseline without signs or symptoms of clinical decompensation, deemed appropriate for discharge. Results were relayed to patient who voiced understanding and were agreeable to outpatient management and follow up. I discussed my clinical impression with patient and answered all questions. At this time, the evidence for any other entities in the differential is insufficient to warrant any further testing or ED observation. This was explained as well. Advisory was given that persistent or worsening symptoms require further evaluation. I confirmed the understanding of this discussion. Network Engineer Administrator disclaimer Much of this encounter note is an electronic water/wastewater project engineer spoken language to printed text. Electronic water/wastewater project engineer of the spoken language may permit errors. Although I have reviewed the note, some errors may still exist. Critical Care Critical Care Time Critical Care Time: No
[2024-01-07 10:10] LABS: Direct LDL Cholesterol 66.02 mg/dL (100-129)
[2024-01-07] MEDS: 0.9 % SODIUM CHLORIDE 50 ML VIAL IV (10:15)
[2024-01-07] MEDS: SODIUM CHLORIDE 0.9% 10ML SYR (RAD ONLY) 10 ML IV (10:15)
[2024-01-07] MEDS: IOPAMIDOL-370 (76%);100ML BOTTLE 85 ML IV (10:15)
[2024-01-07 10:30] VITALS: BP 142/81; PULSE 74; O2SAT 94
[2024-01-07 10:35] LABS: Hemoglobin A1C 5.5 % (4.0-6.0)
[2024-01-07 11:00] VITALS: BP 126/79; PULSE 62; O2SAT 96
[2024-01-07 11:12] VITALS: BP 138/80; PULSE 67; O2SAT 96
[2024-01-07 11:52] VITALS: BP 142/85; PULSE 71; RESP 18; TEMP 36.8; O2SAT 95
== END 2024-01-07 11:56 | disposition home or self-care (01) ==
PROVIDERS: Emergency Provider Emergency Medicine; PCP Family Medicine
DX: J90 Pleural effusion, not elsewhere classified (principal); R42 Dizziness and giddiness; R11.0 Nausea; I42.9 Cardiomyopathy, unspecified; I10 Essential (primary) hypertension; E78.5 Hyperlipidemia, unspecified; C92.92 Myeloid leukemia, unspecified in relapse
CPT/HCPCS: 70450; 70496; 70498; 71046; 80053; 80061; 83036; 83880; 84484; 85025; 93005; 99285; Q9967

== ENCOUNTER 2024-02-17 09:28 | Outpatient (CLI) | payer MEDICARE, SELFPAY ==
--- NOTE | 2024-02-17 09:57 | XR_ITS ---
FINAL REPORT TECHNIQUE: Chest PA & Lateral CLINICAL HISTORY: shortness of breath COMPARISON: 01/07/2024 FINDINGS: 2 views of the chest were performed. The heart size is normal. The mediastinum is within normal limits. There are moderate bilateral pleural effusions. A 2.3 cm nodule is seen in the right lung base. This may be slightly larger than on the prior exam but also may be projectional. There is no pneumothorax. The bony thorax appears intact. IMPRESSION: Right lung base nodule. CT is recommended for further evaluation. Moderate pleural effusions. Reviewed, Interpreted and Dictated by Jethro Camarillo MD Transcribed by Macrina Rajan Authenticated and . [facility]
== END 2024-02-17 23:59 | disposition home or self-care (01) ==
LOC: RAD 09:37
PROVIDERS: PCP Family Medicine; Visit Provider Internal Medicine Medical Oncology
DX: R06.02 Shortness of breath (principal)
CPT/HCPCS: 71046

== ENCOUNTER 2024-02-22 13:52 | Outpatient (CLI) | payer MEDICARE, SELFPAY ==
[2024-02-22 14:23] LABS: Basophils % 0.6 % (0.1-2.0); Eosinophils # 0.2 K/mm3 (0.0-0.4); Eosinophils % 3.3 % (0.1-12.0); Hematocrit 42.8 % (37.0-47.0); Hemoglobin 14.2 g/dL (12.2-16.2); Lymphocytes # 0.8 K/mm3 (0.7-4.5); Lymphocytes % 11.6 % (10-50); Mean Corpuscular HGB Conc 33.2 g/dL (31.8-35.4); Mean Corpuscular Hemoglobin 30.4 pg (27.0-31.2); Mean Corpuscular Volume 91.6 fl (81-99); Mean Platelet Volume 8.4 fl (7.4-10.4); Monocytes # 0.4 K/mm3 (0.1-1.0); Monocytes % 6.3 % (1.7-9.3); Neutrophils % 78.2 % (37.0-80.0); Platelet Count 240 K/mm3 (142-424); Red Blood Count 4.68 M/mm3 (4.20-5.40); Red Cell Distribution Width 14.4 % (11.5-17.5); White Blood Count 6.4 K/mm3 (4.8-10.8)
[2024-02-22 15:41] LABS: Alanine Aminotransferase 18 U/L (12-78); Albumin Level 3.9 g/dl (3.5-5.0); Albumin/Globulin Ratio 1.4 (1.1-1.8); Alkaline Phosphatase 53 U/L (38-126); Aspartate Amino Transferase 28 U/L (14-36); Bilirubin,Total 0.5 mg/dl (0.2-1.3); Blood Urea Nitrogen 19 mg/dl (7-17); Calcium 9.1 mg/dl (8.4-10.2); Carbon Dioxide 29 mmol/L (22.0-30.0); Chloride 106 mmol/L (98-107); Estimated Glomerular Filt Rate 55 ml/min (>60); GFR (African American) 66 ML/MIN (>60); Globulin 2.7 g/dL (1.3-3.2); Glucose 106 mg/dl (74-100); Sodium 139 mmol/L (136-145); Total Protein,Serum 6.6 g/dl (6.3-8.2)
[2024-02-28 18:54] LABS: Interpretation: Negative (.); e13a2 (b2a2) transcript <0.0032 % % (.); e14a2 (b3a2) transcript <0.0032 % % (.); e1a2 transcript <0.0032 % % (.)
[2024-03-29 15:38] LABS: PDF: SCANNED IMAGE
== END 2024-02-22 23:59 | disposition home or self-care (01) ==
LOC: LAB 13:53
PROVIDERS: PCP Family Medicine; Visit Provider Internal Medicine Medical Oncology
DX: C92.10 Chronic myeloid leukemia, BCR/ABL-positive, not having achieved remission (principal)
CPT/HCPCS: 80053; 81206; 85025

== ENCOUNTER 2024-02-23 14:50 | Outpatient (CLI) | payer MEDICARE, SELFPAY ==
--- NOTE | 2024-02-23 14:51 | CT_ITS ---
PROCEDURE INFORMATION: Exam: CT Chest With Contrast; Diagnostic Exam date and time: 02/23/2024 2:56 PM Age: 69 years old Clinical indication: Other: Lung nodule TECHNIQUE: Imaging protocol: Diagnostic computed tomography of the chest with contrast. Radiation optimization: All CT scans at this facility use at least one of these dose optimization techniques: automated exposure control; mA and/or kV adjustment per patient size (includes targeted exams where dose is matched to clinical indication); or iterative reconstruction. Contrast material: ISOVUE; Contrast volume: 75 ml; Contrast route: IV; COMPARISON: CT CHEST W CON 03/26/2020 2:05 PM FINDINGS: Lungs: Well-circumscribed 2.3 cm pulmonary nodule of mixed density in the right lower lobe compatible with benign pulmonary hamartoma, stable since at least 03/26/2020 CT. No new or enlarging pulmonary nodules. Bibasal subsegmental atelectasis/scarring. No evidence of acute airspace infiltrate. No pulmonary edema. Calcified pulmonary granuloma in the right upper lobe consistent with chronic sequelae of prior granulomatous disease, unchanged. Pleural spaces: Bilateral moderate-sized pleural effusions. No pneumothorax. Heart: Biatrial enlargement suggestive of diastolic heart dysfunction. No pericardial effusion. Lymph nodes: No pathologically enlarged lymph nodes by imaging criteria. Vasculature: Unremarkable. Intraperitoneal space: No emergent findings or suspicious mass lesions in the partially visualized upper abdomen. Bones/joints: No evidence of acute osseous abnormality or suspicious bone lesions. Soft tissues: Post-surgical changes noted in the right breast compatible with prior lumpectomy. IMPRESSION: 1. No evidence of primary malignancy or metastatic disease in the chest. 2. Well-circumscribed 2.3 cm pulmonary nodule of mixed density in the right lower lobe compatible with benign pulmonary hamartoma, stable since at least 03/26/2020 CT. 3. Bilateral moderate-sized pleural effusions. 4. Biatrial enlargement suggestive of diastolic heart dysfunction.
[2024-02-23] MEDS: SODIUM CHLORIDE 0.9% 10ML SYR (RAD ONLY) 10 ML IV (15:03)
[2024-02-23] MEDS: IOPAMIDOL-370 (76%);100ML BOTTLE 75 ML IV (15:03)
== END 2024-02-23 23:59 | disposition home or self-care (01) ==
LOC: RAD 14:51
PROVIDERS: PCP Family Medicine; Visit Provider Internal Medicine Medical Oncology
DX: R91.1 Solitary pulmonary nodule (principal); C92.10 Chronic myeloid leukemia, BCR/ABL-positive, not having achieved remission
CPT/HCPCS: 71260; Q9967

== ENCOUNTER 2024-03-08 11:07 | Outpatient (CLI) | payer MEDICARE, SELFPAY ==
--- NOTE | 2024-03-08 11:15 | XR_ITS ---
FINAL REPORT CLINICAL HISTORY: Shortness of breath, pt states she has fluid around lungs x few yrs, fluid was last drained in May COMPARISON: 02/17/2024 FINDINGS: Two views of the chest were obtained. The heart size and pulmonary vascularity are within normal limits. The mediastinum is normal. Again noted is a 23 mm nodule at the right lung base which is stable from the prior study. There are small to moderate bilateral pleural effusions which are visually stable. Persistent bibasilar atelectasis is noted. There is no pneumothorax. The bony thorax is intact. IMPRESSION: Stable bilateral pleural effusions and right lung nodule. Authenticated and [facility]
[2024-03-13 18:24] LABS: Interpretation: Positive (.); e13a2 (b2a2) transcript 0.0662 % (.); e14a2 (b3a2) transcript <0.0032 % % (.); e1a2 transcript <0.0032 % % (.)
[2024-03-30 08:36] LABS: PDF: SCANNED IMAGE
== END 2024-03-08 23:59 | disposition home or self-care (01) ==
LOC: RAD 11:08
PROVIDERS: Internal Medicine Medical Oncology; PCP Family Medicine; Visit Provider Orthopaedic Surgery
DX: C92.10 Chronic myeloid leukemia, BCR/ABL-positive, not having achieved remission (principal); R06.02 Shortness of breath
CPT/HCPCS: 71046; 81206

== ENCOUNTER 2024-04-06 09:29 | Outpatient (CLI) | payer MEDICARE, SELFPAY ==
[2024-04-06 09:56] LABS: Basophils # 0.1 K/mm3 (0-0.2); Basophils % 1.3 % (0.1-2.0); Eosinophils # 0.2 K/mm3 (0.0-0.4); Eosinophils % 3.2 % (0.1-12.0); Hematocrit 42.7 % (37.0-47.0); Hemoglobin 14.3 g/dL (12.2-16.2); Lymphocytes # 0.6 K/mm3 (0.7-4.5); Lymphocytes % 11.1 % (10-50); Mean Corpuscular HGB Conc 33.5 g/dL (31.8-35.4); Mean Corpuscular Hemoglobin 29.9 pg (27.0-31.2); Mean Corpuscular Volume 89.1 fl (81-99); Mean Platelet Volume 8.7 fl (7.4-10.4); Monocytes # 0.4 K/mm3 (0.1-1.0); Monocytes % 6.7 % (1.7-9.3); Neutrophils # 4.2 K/mm3 (1.8-7.8); Neutrophils % 77.7 % (37.0-80.0); Platelet Count 229 K/mm3 (142-424); Red Blood Count 4.79 M/mm3 (4.20-5.40); Red Cell Distribution Width 14.1 % (11.5-17.5); White Blood Count 5.5 K/mm3 (4.8-10.8)
[2024-04-06 10:21] LABS: Albumin Level 3.8 g/dl (3.5-5.0); Chloride 108 mmol/L (98-107); Potassium 4.4 mmoL/L (3.5-5.1); Sodium 140 mmol/L (136-145)
[2024-04-06 10:23] LABS: Blood Urea Nitrogen 21 mg/dl (7-17); Estimated Glomerular Filt Rate 44 ml/min (>60); GFR (African American) 54 ML/MIN (>60)
[2024-04-06 10:24] LABS: Alanine Aminotransferase 18 U/L (12-78); Albumin/Globulin Ratio 1.5 (1.1-1.8); Alkaline Phosphatase 54 U/L (38-126); Anion Gap 7.4 mEq/L (5-15); Aspartate Amino Transferase 31 U/L (14-36); Bilirubin,Total 0.5 mg/dl (0.2-1.3); Carbon Dioxide 29 mmol/L (22.0-30.0); Globulin 2.5 g/dL (1.3-3.2); Glucose 78 mg/dl (74-100); Total Protein,Serum 6.3 g/dl (6.3-8.2)
[2024-04-15 03:36] LABS: Interpretation: Positive (.); e13a2 (b2a2) transcript 2.1311 % (.); e14a2 (b3a2) transcript <0.0032 % % (.); e1a2 transcript <0.0032 % % (.)
[2024-04-18 14:58] LABS: PDF: SCANNED IMAGE
== END 2024-04-06 23:59 | disposition home or self-care (01) ==
LOC: LAB 09:30
PROVIDERS: PCP Family Medicine; Visit Provider Internal Medicine Medical Oncology
DX: C92.10 Chronic myeloid leukemia, BCR/ABL-positive, not having achieved remission (principal)
CPT/HCPCS: 36415; 80053; 81206; 85025

== ENCOUNTER 2024-04-20 13:56 | Outpatient (CLI) | payer MEDICARE, SELFPAY ==
--- NOTE | 2024-04-20 14:05 | XR_ITS ---
FINAL REPORT CLINICAL HISTORY: F/U PLEURAL EFFUSION COMPARISON: 03/08/2024 FINDINGS: A right perihilar nodule is stable. There is a small left pleural effusion which has improved from the prior study. A moderate right pleural effusion is stable. The mediastinum has a normal appearance. The cardiac silhouette is unremarkable. IMPRESSION: Moderate right pleural effusion, unchanged. Reviewed, Interpreted and Dictated by Savannah Sullivan MD Transcribed by Nicole Enamorado Authenticated and [facility]
== END 2024-04-20 23:59 | disposition home or self-care (01) ==
LOC: RAD 13:57
PROVIDERS: PCP Family Medicine; Visit Provider Internal Medicine Medical Oncology
DX: C92.10 Chronic myeloid leukemia, BCR/ABL-positive, not having achieved remission (principal)
CPT/HCPCS: 71046

== ENCOUNTER 2024-05-06 07:44 | Outpatient (CLI) | payer MEDICARE, SELFPAY ==
--- NOTE | 2024-05-06 | XR_ITS ---
FINAL REPORT CLINICAL HISTORY: S/P RT THORACENTESIS COMPARISON: 04/20/2024 FINDINGS: PA and lateral views of the chest were obtained. The heart is mildly enlarged. There are bibasilar opacities with bilateral pleural effusions. Findings appear worse on the left but improved on the right. A right perihilar nodule is unchanged. There is no pneumothorax after thoracentesis. IMPRESSION: No pneumothorax post thoracentesis. Worsening left base opacity and left pleural effusion. Reviewed, Interpreted and Dictated by Kylah Nunez MD Transcribed by Macrina Rajan Authenticated and . [facility]
--- NOTE | 2024-05-06 07:46 | US_ITS ---
FINAL REPORT CLINICAL HISTORY: Chronic Myeloid Leukemia -- THORACENTESIS RT -- AMY KELLEY -- 1575ML FINDINGS: ULTRASOUND-GUIDED THORACENTESIS HISTORY: Pleural effusion. ATTENDING PHYSICIAN: Dr. Nunez PHYSICIAN [place] BARTENDER: Amy Akbar PA-C TECHNIQUE: Informed consent was obtained from the patient. The indications and complications were discussed with the patient prior to beginning the procedure. This included, but was not limited to pain, bleeding, infection, and pneumothorax requiring chest tube placement. The right back was then prepped and draped in sterile fashion. 1% Lidocaine was used for local anesthesia. Utilizing sonographic guidance, a standard thoracentesis needle and sheath were inserted into the pleural space and approximately 1575 mL of clear pleural fluid was successfully removed without complication. The patient tolerated the procedure well. IMPRESSION: Technically successful sonographic guided right-sided thoracentesis as above. Films reviewed , interpreted and dictated by Dr. Kylah Nunez. Transcribed by Amy Akbar PA-C. Reviewed, Interpreted and Dictated by Kylah Nunez MD Transcribed by ALLIE Dutta Authenticated and . [facility]
[2024-05-06 07:54] VITALS: BMI 28.7
[2024-05-06 07:57] VITALS: BP 135/76; PULSE 89; RESP 18; TEMP 36.7; O2SAT 94
[2024-05-06 08:49] VITALS: BP 142/86; PULSE 75; RESP 18; TEMP 36.8; O2SAT 97
[2024-05-06 09:04] VITALS: BP 141/80; PULSE 74; RESP 18; TEMP 36.8; O2SAT 97
[2024-05-06 09:19] VITALS: BP 131/77; PULSE 73; RESP 18; TEMP 36.8; O2SAT 98
[2024-05-06 09:34] VITALS: BP 143/81; PULSE 72; RESP 18; TEMP 36.8; O2SAT 99
[2024-05-06 09:49] VITALS: BP 138/77; PULSE 73; RESP 18; TEMP 36.8; O2SAT 99
[2024-05-06 11:11] LABS: Source, Body Fld. Pleural Fluid
[2024-05-06 11:12] LABS: Appearance,Body Fld. Cloudy; RBC,Body Fluid < 10 cells/uL (< 10 X 10^3); TNC,Body Fluid 968 cells/uL (< 1000); Volume,Body Fld. 1575 mL
[2024-05-06 13:15] LABS: Mononuclear WBCs,Body Fluid 77 %; Polynuclear WBC,Body Fluid 23 %
[2024-05-08 08:08] LABS: Glucose, Body Fluid 111 mg/dL (.); LD, Body Fluid 169 IU/L (.)
== END 2024-05-06 09:49 | disposition home or self-care (01) ==
LOC: RAD 07:46
PROVIDERS: PCP Family Medicine; Visit Provider Internal Medicine Medical Oncology
DX: C92.10 Chronic myeloid leukemia, BCR/ABL-positive, not having achieved remission (principal)
CPT/HCPCS: 32555; 71046; 82945; 83615; 87070; 87205; 88112; 88305; 89051

== ENCOUNTER 2024-05-16 11:36 | Outpatient (CLI) | payer MEDICARE, SELFPAY ==
[2024-05-16 12:22] LABS: Basophils % 0.7 % (0.1-2.0); Eosinophils # 0.1 K/mm3 (0.0-0.4); Eosinophils % 2.2 % (0.1-12.0); Hematocrit 39.7 % (37.0-47.0); Lymphocytes # 0.9 K/mm3 (0.7-4.5); Lymphocytes % 15.4 % (10-50); Mean Corpuscular HGB Conc 32.7 g/dL (31.8-35.4); Mean Corpuscular Hemoglobin 29.3 pg (27.0-31.2); Mean Corpuscular Volume 89.6 fl (81-99); Monocytes # 0.4 K/mm3 (0.1-1.0); Monocytes % 7.6 % (1.7-9.3); Neutrophils # 4.1 K/mm3 (1.8-7.8); Neutrophils % 73.7 % (37.0-80.0); Platelet Count 265 K/mm3 (142-424); Red Blood Count 4.43 M/mm3 (4.20-5.40); Red Cell Distribution Width 14.3 % (11.5-17.5); White Blood Count 5.5 K/mm3 (4.8-10.8)
[2024-05-16 13:02] LABS: Chloride 103 mmol/L (98-107)
[2024-05-16 13:03] LABS: Albumin Level 3.7 g/dl (3.5-5.0); Potassium 4.6 mmoL/L (3.5-5.1); Sodium 135 mmol/L (136-145)
[2024-05-16 13:05] LABS: Blood Urea Nitrogen 22 mg/dl (7-17); Estimated Glomerular Filt Rate 49 ml/min (>60); GFR (African American) 59 ML/MIN (>60)
[2024-05-16 13:06] LABS: Alanine Aminotransferase 19 U/L (12-78); Albumin/Globulin Ratio 1.5 (1.1-1.8); Alkaline Phosphatase 66 U/L (38-126); Anion Gap 10.6 mEq/L (5-15); Aspartate Amino Transferase 30 U/L (14-36); Bilirubin,Total 0.3 mg/dl (0.2-1.3); Calcium 8.8 mg/dl (8.4-10.2); Carbon Dioxide 26 mmol/L (22.0-30.0); Globulin 2.5 g/dL (1.3-3.2); Glucose 81 mg/dl (74-100); Total Protein,Serum 6.2 g/dl (6.3-8.2)
[2024-05-16 14:12] LABS: Lactate Dehydrogenase 184 U/L (313-618)
[2024-05-23 08:27] LABS: e13a2 (b2a2) transcript 2.6788; e14a2 (b3a2) transcript <0.0032; e1a2 transcript <0.0032
[2024-05-23 08:28] LABS: Interpretation: POSITIVE
[2024-05-23 08:29] LABS: PDF: SCANNED IMAGE
== END 2024-05-16 23:59 | disposition home or self-care (01) ==
LOC: LAB 11:37
PROVIDERS: PCP Family Medicine; Visit Provider Internal Medicine Medical Oncology
DX: C92.10 Chronic myeloid leukemia, BCR/ABL-positive, not having achieved remission (principal)
CPT/HCPCS: 36415; 80053; 81206; 83615; 85025

== ENCOUNTER 2024-05-24 13:44 | Outpatient (CLI) | payer MEDICARE, SELFPAY ==
--- NOTE | 2024-05-24 13:47 | XR_ITS ---
PROCEDURE INFORMATION: Exam: XR Right Knee Exam date and time: 05/24/2024 1:54 PM Age: 69 years old Clinical indication: Pain; Knee; Right; Additional info: RT knee pain TECHNIQUE: Imaging protocol: Radiologic exam of the right knee. Views: 3 views. COMPARISON: CR XR KNEE RT 3V 05/24/2024 1:54 PM FINDINGS: Bones/joints: Severe degenerative changes within the medial compartment and to a lesser degree the lateral compartment. Moderate to severe joint space narrowing with osteophytosis medially. Mild patellofemoral degenerative changes. Soft tissues: Normal. IMPRESSION: Severe degenerative changes medially.
--- NOTE | 2024-05-24 13:47 | XR_ITS ---
PROCEDURE INFORMATION: Exam: XR Left Knee Exam date and time: 05/24/2024 1:54 PM Age: 69 years old Clinical indication: Pain; Knee; Left; Additional info: Left knee pain TECHNIQUE: Imaging protocol: Radiologic exam of the left knee. Views: 3 views. COMPARISON: No relevant prior studies available. FINDINGS: Bones/joints: Moderate degenerative changes within the medial compartment . Joint space narrowing with osteophytosis. Mild patellofemoral degenerative changes. Soft tissues: Normal. IMPRESSION: Moderate degenerative changes within the medial compartment . Joint space narrowing with osteophytosis.
== END 2024-05-24 23:59 | disposition home or self-care (01) ==
LOC: RAD 13:45
PROVIDERS: PCP Family Medicine; Visit Provider Physician Assistant
DX: M25.562 Pain in left knee (principal); M25.561 Pain in right knee
CPT/HCPCS: 73562

== ENCOUNTER 2024-06-13 13:57 | Outpatient (CLI) | payer MEDICARE, SELFPAY ==
[2024-06-13 15:46] LABS: Basophils % 0.3 % (0.1-2.0); Eosinophils # 0.1 K/mm3 (0.0-0.4); Eosinophils % 1.7 % (0.1-12.0); Hematocrit 39.6 % (37.0-47.0); Hemoglobin 13.2 g/dL (12.2-16.2); Lymphocytes # 0.8 K/mm3 (0.7-4.5); Lymphocytes % 13.6 % (10-50); Mean Corpuscular HGB Conc 33.3 g/dL (31.8-35.4); Mean Corpuscular Hemoglobin 29.9 pg (27.0-31.2); Mean Corpuscular Volume 89.8 fl (81-99); Mean Platelet Volume 10.9 fl (7.4-10.4); Monocytes # 0.5 K/mm3 (0.1-1.0); Monocytes % 8.4 % (1.7-9.3); Neutrophils # 4.4 K/mm3 (1.8-7.8); Neutrophils % 75.8 % (37.0-80.0); Platelet Count 244 K/mm3 (142-424); Red Blood Count 4.41 M/mm3 (4.20-5.40); Red Cell Distribution Width 15.1 % (11.5-17.5); White Blood Count 5.7 K/mm3 (4.8-10.8)
[2024-06-13 16:03] LABS: Alanine Aminotransferase 18 U/L (12-78); Albumin Level 4.2 g/dl (3.5-5.0); Albumin/Globulin Ratio 1.8 (1.1-1.8); Alkaline Phosphatase 65 U/L (38-126); Anion Gap 15.2 mEq/L (5-15); Aspartate Amino Transferase 29 U/L (14-36); Bilirubin,Total 0.2 mg/dl (0.2-1.3); Blood Urea Nitrogen 20 mg/dl (7-17); Calcium 8.6 mg/dl (8.4-10.2); Carbon Dioxide 27 mmol/L (22.0-30.0); Chloride 100 mmol/L (98-107); Estimated Glomerular Filt Rate 55 ml/min (>60); GFR (African American) 66 ML/MIN (>60); Globulin 2.3 g/dL (1.3-3.2); Glucose 104 mg/dl (74-100); Potassium 4.2 mmoL/L (3.5-5.1); Sodium 138 mmol/L (136-145); Total Protein,Serum 6.5 g/dl (6.3-8.2)
[2024-06-20 12:08] LABS: e13a2 (b2a2) transcript 0.1417
[2024-06-20 12:09] LABS: Interpretation: POSITIVE; PDF: SCANNED IMAGE; e14a2 (b3a2) transcript <0.0032%; e1a2 transcript <0.0032%
== END 2024-06-13 23:59 | disposition home or self-care (01) ==
LOC: LAB 13:58
PROVIDERS: PCP Family Medicine; Visit Provider Internal Medicine Medical Oncology
DX: C92.10 Chronic myeloid leukemia, BCR/ABL-positive, not having achieved remission (principal); Z79.622 Long term (current) use of Janus kinase inhibitor
CPT/HCPCS: 36415; 80053; 81206; 85025

== ENCOUNTER 2024-06-21 14:07 | Outpatient (CLI) | payer MEDICARE, SELFPAY ==
--- NOTE | 2024-06-21 14:13 | XR_ITS ---
FINAL REPORT CLINICAL HISTORY: recurrent pleuroeffusion COMPARISON: 05/06/2024 FINDINGS: PA and lateral views of the chest are obtained. Heart size is stable. There is no change in a right lower lobe pulmonary nodule measuring 22 mm. Bilateral lower lobe airspace disease is favored to be atelectasis. A right pleural effusion is increased in size. A left pleural effusion is stable. There is no pneumothorax. IMPRESSION: Interval increase in right pleural effusion. Stable right lower lobe pulmonary nodule. No other change. Reviewed, Interpreted and Dictated by Kylah Nunez MD Transcribed by Laura Olson Authenticated and [facility]
== END 2024-06-21 23:59 | disposition home or self-care (01) ==
LOC: RAD 14:08
PROVIDERS: PCP Family Medicine; Visit Provider Internal Medicine Medical Oncology
DX: C92.10 Chronic myeloid leukemia, BCR/ABL-positive, not having achieved remission (principal)
CPT/HCPCS: 71046

== ENCOUNTER 2024-07-08 11:08 | Outpatient (CLI) | payer MEDICARE, SELFPAY ==
--- NOTE | 2024-07-08 11:19 | ECG_ITS ---
APPROVED REPORT Exam: Resting ECG HR:76 bpm ECG Measurements Heart Rate 76 AXES WY 165 P 62 QRSd 86 QRS 54 QT 355 T 13 QTc 386 Conclusion SINUS RHYTHM NORMAL ECG UNCONFIRMED REPORT Electronically signed by : Seth Negron MD 07/09/2024 08:29:47
== END 2024-07-08 23:59 | disposition home or self-care (01) ==
LOC: RT 11:09
PROVIDERS: PCP Family Medicine; Visit Provider Internal Medicine Medical Oncology
DX: C92.10 Chronic myeloid leukemia, BCR/ABL-positive, not having achieved remission (principal)
CPT/HCPCS: 93005

== ENCOUNTER 2024-07-11 12:44 | Outpatient (CLI) | payer MEDICARE, SELFPAY ==
[2024-05-06 09:04] VITALS: BP 131/74; PULSE 74; RESP 18; TEMP 36.8; O2SAT 97
[2024-05-06 09:38] VITALS: BP 138/77
--- NOTE | 2024-07-11 12:45 | MM_ITS ---
PROCEDURE INFORMATION: Exam: MG Bilateral Screening 3D Mammography Exam date and time: 07/11/2024 1:05 PM Age: 69 years old Clinical indication: Screening mammogram. Right lumpectomy and radiation therapy for breast cancer TECHNIQUE: Imaging protocol: Bilateral Screening tomosynthesis and 2D mammography including computer-aided detection (CAD) when performed. COMPARISON: 1. MG MM DIG SCREENING MAMM BI W/CAD 07/08/2023 4:39 PM 2. MG MM DIG SCREENING MAMM BI W/CAD 07/02/2022 10:07 AM 3. MG MM DIG SCREENING MAMM BI W/CAD 07/01/2021 10:10 AM 4. MG MM DIG SCREENING MAMM BI W/CAD 06/26/2020 3:31 PM FINDINGS: MAMMOGRAPHY: Breast composition: The breast is heterogeneously dense, which may obscure small masses. Mass: None. Architectural distortion: No new or suspicious architectural distortion. Calcifications: No new or suspicious calcifications are present Asymmetric density: No new or suspicious asymmetric density is present Skin thickening: None. Axillary adenopathy: None. Other findings: Stable postoperative findings on the right. IMPRESSION: No mammographic evidence of malignancy. Recommend annual screening mammography unless otherwise clinically indicated. ASSESSMENT: BI-RADS category 2: Benign.
== END 2024-07-11 23:59 | disposition home or self-care (01) ==
LOC: RAD 12:45
PROVIDERS: PCP Family Medicine; Visit Provider Surgery
DX: Z12.31 Encounter for screening mammogram for malignant neoplasm of breast (principal)
CPT/HCPCS: 77063; 77067

== ENCOUNTER 2024-07-18 11:00 | Outpatient (CLI) | payer MEDICARE, SELFPAY ==
--- NOTE | 2024-07-18 11:08 | ECG_ITS ---
APPROVED REPORT Exam: Resting ECG HR:78 bpm ECG Measurements Heart Rate 78 AXES [place] 159 P 71 QRSd 90 QRS 73 QT 348 T 39 QTc 382 Conclusion SINUS RHYTHM NORMAL ECG UNCONFIRMED REPORT Electronically signed by : Seth Negron MD 07/19/2024 08:55:24
== END 2024-07-18 23:59 | disposition home or self-care (01) ==
LOC: RT 11:01
PROVIDERS: PCP Family Medicine; Visit Provider Internal Medicine Medical Oncology
DX: C92.10 Chronic myeloid leukemia, BCR/ABL-positive, not having achieved remission (principal)
CPT/HCPCS: 93005

== ENCOUNTER 2024-07-25 13:18 | Outpatient (CLI) | payer MEDICARE, SELFPAY ==
[2024-07-25 13:45] LABS: Basophils % 0.6 % (0.1-2.0); Eosinophils # 0.1 K/mm3 (0.0-0.4); Eosinophils % 1.7 % (0.1-12.0); Hematocrit 40.6 % (37.0-47.0); Hemoglobin 13.5 g/dL (12.2-16.2); Lymphocytes # 0.6 K/mm3 (0.7-4.5); Lymphocytes % 8.5 % (10-50); Mean Corpuscular HGB Conc 33.3 g/dL (31.8-35.4); Mean Corpuscular Hemoglobin 30.3 pg (27.0-31.2); Mean Platelet Volume 10.3 fl (7.4-10.4); Monocytes # 0.5 K/mm3 (0.1-1.0); Monocytes % 8.3 % (1.7-9.3); Neutrophils # 5.2 K/mm3 (1.8-7.8); Neutrophils % 80.4 % (37.0-80.0); Platelet Count 301 K/mm3 (142-424); Red Blood Count 4.46 M/mm3 (4.20-5.40); Red Cell Distribution Width 14.9 % (11.5-17.5); White Blood Count 6.5 K/mm3 (4.8-10.8)
[2024-07-25 14:21] LABS: Albumin Level 4.3 g/dl (3.5-5.0); Chloride 104 mmol/L (98-107); Potassium 4.2 mmoL/L (3.5-5.1); Sodium 137 mmol/L (136-145)
[2024-07-25 14:23] LABS: Blood Urea Nitrogen 17 mg/dl (7-17); Estimated Glomerular Filt Rate 55 ml/min (>60); GFR (African American) 66 ML/MIN (>60)
[2024-07-25 14:24] LABS: Alanine Aminotransferase 46 U/L (12-78); Albumin/Globulin Ratio 1.7 (1.1-1.8); Alkaline Phosphatase 68 U/L (38-126); Anion Gap 10.2 mEq/L (5-15); Aspartate Amino Transferase 40 U/L (14-36); Bilirubin,Total 0.7 mg/dl (0.2-1.3); Calcium 8.7 mg/dl (8.4-10.2); Carbon Dioxide 27 mmol/L (22.0-30.0); Globulin 2.6 g/dL (1.3-3.2); Glucose 132 mg/dl (74-100); Total Protein,Serum 6.9 g/dl (6.3-8.2)
== END 2024-07-25 23:59 | disposition home or self-care (01) ==
LOC: LAB 13:18
PROVIDERS: PCP Family Medicine; Visit Provider Internal Medicine Medical Oncology
DX: C92.10 Chronic myeloid leukemia, BCR/ABL-positive, not having achieved remission (principal)
CPT/HCPCS: 36415; 80053; 85025

== ENCOUNTER 2024-08-11 10:33 | Outpatient (CLI) | payer MEDICARE, SELFPAY ==
[2024-08-11 11:14] LABS: Basophils # 0.1 K/mm3 (0-0.2); Basophils % 0.7 % (0.1-2.0); Eosinophils # 0.2 K/mm3 (0.0-0.4); Eosinophils % 2.9 % (0.1-12.0); Hematocrit 40.2 % (37.0-47.0); Hemoglobin 13.2 g/dL (12.2-16.2); Lymphocytes # 0.5 K/mm3 (0.7-4.5); Lymphocytes % 7.5 % (10-50); Mean Corpuscular HGB Conc 32.8 g/dL (31.8-35.4); Mean Corpuscular Volume 91.4 fl (81-99); Mean Platelet Volume 10.7 fl (7.4-10.4); Monocytes # 0.6 K/mm3 (0.1-1.0); Monocytes % 9.2 % (1.7-9.3); Neutrophils # 5.5 K/mm3 (1.8-7.8); Neutrophils % 79.3 % (37.0-80.0); Nucleated Red Blood Cells # 0 10^3/uL; Nucleated Red Blood Cells % 0 %; Platelet Count 236 K/mm3 (142-424); Red Cell Distribution Width 15.1 % (11.5-17.5); Red Cell Distribution Width-SD 50.6 fL; White Blood Count 6.9 K/mm3 (4.8-10.8)
[2024-08-11 11:31] LABS: Albumin Level 3.9 g/dl (3.5-5.0); Chloride 108 mmol/L (98-107); Potassium 4.6 mmoL/L (3.5-5.1); Sodium 141 mmol/L (136-145)
[2024-08-11 11:33] LABS: Alanine Aminotransferase 47 U/L (12-78); Anion Gap 11.6 mEq/L (5-15); Aspartate Amino Transferase 38 U/L (14-36); Blood Urea Nitrogen 21 mg/dl (7-17); Carbon Dioxide 26 mmol/L (22.0-30.0); Estimated Glomerular Filt Rate 62 ml/min (>60); GFR (African American) 75 ML/MIN (>60)
[2024-08-11 11:34] LABS: Albumin/Globulin Ratio 1.3 (1.1-1.8); Alkaline Phosphatase 74 U/L (38-126); Bilirubin,Total 0.9 mg/dl (0.2-1.3); Calcium 8.4 mg/dl (8.4-10.2); Globulin 2.9 g/dL (1.3-3.2); Glucose 93 mg/dl (74-100); Total Protein,Serum 6.8 g/dl (6.3-8.2)
[2024-08-21 10:12] LABS: Interpretation: NEGATIVE; PDF: SCANNED IMAGE; e13a2 (b2a2) transcript <0.0032%; e14a2 (b3a2) transcript <0.0032%; e1a2 transcript <0.0032%
== END 2024-08-11 23:59 | disposition home or self-care (01) ==
LOC: LAB 10:33
PROVIDERS: PCP Family Medicine; Visit Provider Internal Medicine Medical Oncology
DX: C92.10 Chronic myeloid leukemia, BCR/ABL-positive, not having achieved remission (principal)
CPT/HCPCS: 36415; 80053; 81206; 85025

== ENCOUNTER 2024-09-05 10:56 | Outpatient (CLI) | payer MEDICARE, SELFPAY | END 2024-09-05 23:59 | disposition home or self-care (01) | LOC: LAB 10:56 | PROVIDERS: PCP Family Medicine; Visit Provider Internal Medicine Medical Oncology | DX: C92.10 Chronic myeloid leukemia, BCR/ABL-positive, not having achieved remission (principal) | CPT/HCPCS: 81206 ==

== ENCOUNTER 2024-09-13 10:53 | Outpatient (CLI) | payer MEDICARE, SELFPAY ==
--- NOTE | 2024-09-13 10:58 | XR_ITS ---
PROCEDURE INFORMATION: Exam: XR Chest Exam date and time: 09/13/2024 11:00 AM Age: 69 years old Clinical indication: Other: Check for pleural effusion/fluid buildup; F/u pleural effusion/fluid buildup; Additional info: Cml TECHNIQUE: Imaging protocol: Radiologic exam of the chest. Views: 2 views. COMPARISON: CR XR CHEST 2V 06/21/2024 2:23 PM FINDINGS: Lungs: Nodule measuring 2 cm in the right lower lobe stable since the prior study. Bibasilar opacities likely represent atelectasis or infection. Pleural spaces: Moderate right and small left pleural effusions are stable. Heart/Mediastinum: Unremarkable. No cardiomegaly. Bones/joints: Unremarkable. IMPRESSION: Nodule measuring 2 cm in the right lower lobe stable since the prior study. Bibasilar opacities likely represent atelectasis or infection. Moderate right and small left pleural effusions are stable.
== END 2024-09-13 23:59 | disposition home or self-care (01) ==
LOC: RAD 10:54
PROVIDERS: PCP Family Medicine; Visit Provider Internal Medicine Medical Oncology
DX: J90 Pleural effusion, not elsewhere classified (principal); R91.1 Solitary pulmonary nodule; R91.8 Other nonspecific abnormal finding of lung field; C92.10 Chronic myeloid leukemia, BCR/ABL-positive, not having achieved remission
CPT/HCPCS: 71046

== ENCOUNTER 2024-09-15 09:42 | Outpatient (CLI) | payer MEDICARE, SELFPAY ==
[2024-09-15 10:51] LABS: Basophils # 0.1 K/mm3 (0-0.2); Basophils % 0.9 % (0.1-2.0); Eosinophils # 0.2 Kmm3 (0.0-0.4); Eosinophils % 3.1 % (0.1-12.0); Hematocrit 40.6 % (37.0-47.0); Hemoglobin 13.2 g/dL (12.2-16.2); Immature Granulocytes # 0.06 10^3uL; Immature Granulocytes % 0.9 %; Lymphocytes # 0.5 K/mm3 (0.7-4.5); Lymphocytes % 7.8 % (10-50); Mean Corpuscular HGB Conc 32.5 g/dL (31.8-35.4); Mean Corpuscular Hemoglobin 29.9 pg (27.0-31.2); Mean Corpuscular Volume 92.1 fl (81-99); Monocytes # 0.6 K/mm3 (0.1-1.0); Monocytes % 9.2 % (1.7-9.3); Neutrophils # 5.4 K/mm3 (1.8-7.8); Neutrophils % 78.1 % (37.0-80.0); Nucleated Red Blood Cells # 0 10^3/uL; Nucleated Red Blood Cells % 0 %; Platelet Count 234 K/mm3 (142-424); Red Blood Count 4.41 M/mm3 (4.20-5.40); Red Cell Distribution Width 14.1 % (11.5-17.5); Red Cell Distribution Width-SD 47.8 fL; White Blood Count 6.9 K/mm3 (4.8-10.8)
[2024-09-15 10:52] LABS: MANUAL DIFFERENTIAL MANUAL DIFFERENTIAL (MANUAL DIFF)
[2024-09-15 11:12] LABS: Eosinophils % 4 % (0-3); Lymphocytes % 10 % (10-50); Monocytes % 10 % (2-9); Neutrophils % 76 % (42-76); Total Cells Counted 100
[2024-09-15 11:13] LABS: Platelet Estimate Normal; RBC Morphology Normal
[2024-09-15 11:16] LABS: Alanine Aminotransferase 38 U/L (12-78); Albumin Level 3.9 g/dl (3.5-5.0); Albumin/Globulin Ratio 1.5 (1.1-1.8); Alkaline Phosphatase 56 U/L (38-126); Anion Gap 10.7 mEq/L (5-15); Aspartate Amino Transferase 35 U/L (14-36); Bilirubin,Total 0.8 mg/dl (0.2-1.3); Blood Urea Nitrogen 20 mg/dl (7-17); Calcium 8.4 mg/dl (8.4-10.2); Carbon Dioxide 26 mmol/L (22.0-30.0); Chloride 106 mmol/L (98-107); Estimated Glomerular Filt Rate 55 ml/min (>60); GFR (African American) 66 ML/MIN (>60); Globulin 2.6 g/dL (1.3-3.2); Glucose 81 mg/dl (74-100); Potassium 4.7 mmoL/L (3.5-5.1); Sodium 138 mmol/L (136-145); Total Protein,Serum 6.5 g/dl (6.3-8.2)
== END 2024-09-15 23:59 | disposition home or self-care (01) ==
LOC: LAB 09:43
PROVIDERS: PCP Family Medicine; Visit Provider Internal Medicine Medical Oncology
DX: C92.10 Chronic myeloid leukemia, BCR/ABL-positive, not having achieved remission (principal)
CPT/HCPCS: 36415; 80053; 85007; 85025

== ENCOUNTER 2024-12-05 09:15 | Outpatient (CLI) | payer MEDICARE, SELFPAY ==
--- OUTSIDE RECORDS SUMMARY | 2023-03-31 12:06 | XMS_ITS | Encounter Summary ---
Author Organization [facility] yste Address [address] [place] [address] Care Team Providers Care Bakery Team Leader Name Role Phone Seth Fry MD Primary Care Provider + Reason for Visit * Diagnostic Imaging (Routine) - Closed Specialty Diagnoses / Procedures Referred By Contac t Referred To Contact Radiology Diagnoses Papillary thyroid carcinoma Procedures US Thyroid Georgia Perez, DO [address] [place] [address] Phone: tel: fax: Referral ID Status Reason Start Date Expiration Date Visits Re quested Visits Authorized [id number] Closed 03/31/2023 03/30/2024 1 1 Encounter Details Date Type Department Care Team (Late st Contact Info) Description 03/31/2023 11:06 AM EST Hospital Encounter [facility] ENDOCRINOLOGY [address] [facility] [address] [place] [phone] Social History Tobacco Use Types Packs/Day Years [...] Description 10/04/2025 2:15 PM EDT Office Visit [facility] ENDOCRINOLOGY [address] [place] [address] Georgia Perez DO [address] [facility] [address] [place] [address] documented as of this encounter [...] on filedocumented in this encounter Care Teams Bakery Team Leader Relationship Specialty Start Date End Date Seth Fry MD [address] [facility] [place] [address] PCP - General Family Medicine 08/29/21 documented as of this encounter
--- OUTSIDE RECORDS SUMMARY | 2024-09-29 13:30 | XMS_ITS | Encounter Summary ---
Author Organization [facility] Address [address] [place] [address] Care Team Providers Care Aeronautical Engineering Teacher Name Role Phone Seth Fry MD Primary Care Provider + Reason for Referral * Diagnostic Imaging (Routine) - Closed Specialty Diagnoses / Procedures Referred By Contbrice t Referred To Contact Radiology Diagnoses Papillary thyroid carcinoma Procedures US Thyroid Georgia Perez DO [address] [place] [address] Phone: tel: fax: Referral ID Status Reason Start Date Expiration Date Visits Re quested Visits Authorized [id number] Closed 09/29/2024 12/29/2025 1 1 Reason for Visit * Reason Comments Hypothyroidism Prediabetes Encounter Details Date Type Department Care Team (Late st Contact Info) Description 09/29/2024 1:30 PM EDT Office Visit [facility] [address] [place] [phone] Georgia Perez DO [address] [place] [address] Postoperative hypothyroidism (Primary Dx); Papillary thyroid carcinoma; Prediabetes Social History Tobacco Use Types Packs/Day Years [...] on file documented as of this encounter Last Filed Vital Signs Vital Sign Reading Time Taken Comments Blood Pressure 154/92 09/29/2024 1:22 PM EDT Pulse 67 09/29/2024 1:22 PM EDT Temperature - - Respiratory Rate - - Oxygen Saturation 98% 09/29/2024 1:22 PM EDT Inhaled Oxygen Concentration - - Weight 90.6 kg (199 lb 12.8 oz) 09/29/2024 1:22 PM EDT Height 177.8 cm (5' 10 ) 09/29/2024 1:22 PM EDT Body Mass Index 28.67 09/29/2024 1:22 PM EDT documented in this encounter Progress Notes * Georgia Perez DO - 09/29/2024 2:06 PM EDTAssociated Problem(s): Prediabetes A1c up to 5.9. No change in diet, weight, activity. PCP can monitor between visits here, every 3 to 6 months. 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 Lymph node sampling was negative. Treated with 100 mCi BURRIS 09/11/2014. Scan and Tg uptake in neck only. History of a lung nodule. PET/CT scan with low SUV right lower lung nodule - no longer following. 2016: Thyrogen scan and Tg with no evidence of recurrence. 07/2022: TG < 0.1, TGAB < 1 09/2023: TG < 0.1, TG ab < 1 09/2024: TG < 0.1 and TG Ab < 1 Neck ultrasound 12/21/2021 negative for recurrence. Ultrasound 03/2023 with prominent lymph nodes - reactive due to sinus irritation, scar tissue in the left thyroid bed, no suspicious findings. US today with no remnant or suspicious lymph nodes. Repeat ultrasound q 2 years if TG level low/stable. Monitor TG and antibody yearly. * Georgia Perez DO - 09/29/2024 1:49 PM EDTAssociated Problem(s): Postoperative hypothyroidism On Synthroid 125 mcg alternating every other day with 112 mcg. Recent TFTs at goal. She is clinically euthyroid. Monitor yearly. Refill sent. * Georgia Perez DO - 09/29/2024 1:30 PM EDT Chief Complaint Patient presents with Hypothyroidism Prediabetes HPI Anjali Carlson is a 69 y.o. female had concerns including Hypothyroidism and Prediabetes. On synthroid 112 alternating with 125 mcg. Due for labs and US today. She feels fine. A1c is up to 5.9. The following portions of the patient's history were reviewed and updated as appropriate: allergies, current medications, past family history, past medical history, past social history, past surgicalhistory, and problem list. Review of Systems Constitutional: Negative for chills, diaphoresis, fatigue and fever. HENT: Negative for congestion, sore throat and swollen glands. Respiratory: Negative for cough. Cardiovascular: Negative for chest pain. Gastrointestinal: Negative for abdominal pain, nausea and vomiting. Genitourinary: Negative for dysuria. Musculoskeletal: Negative for myalgias and neck pain. Skin: Negative for rash. Neurological: Negative for weakness and numbness. BP 154/92 (BP Location: Left arm, Patient Position: Sitting) Pulse 67 Ht 177.8 cm (70 ) Wt 90.6 kg (199 lb 12.8 oz) SpO2 98% BMI 28.67 kg/m?? Physical Exam Vitals reviewed. Constitutional: Appearance: Normal appearance. Cardiovascular: Rate and Rhythm: Normal rate. Pulmonary: Effort: Pulmonary effort is normal. Neurological: General: No focal deficit present. Mental Status: She is alert. Mental status is at baseline. Psychiatric: Mood and Affect: Mood normal. Behavior: Behavior normal. LABS AND IMAGING CMP Lab Results Component Value Date GLUCOSE 88 09/22/2024 BUN 14 09/22/2024 CREATININE 1.04 (H) 09/22/2024 BCR 13.5 09/22/2024 K 4.2 09/22/2024 CO2 26.2 09/22/2024 CALCIUM 9.7 09/22/2024 ALBUMIN 4.2 09/22/2024 AST 31 09/22/2024 ALT 38 (H) 09/22/2024 TSH Lab Results Component Value Date TSH 0.673 09/22/2024 TSH 1.360 09/23/2023 TSH 0.922 03/12/2023 T4 Lab Results Component Value Date FREET4 1.76 (H) 09/22/2024 FREET4 1.68 09/23/2023 FREET4 1.58 03/12/2023 Lab Results Component Value Date THYROGLOBULN <0.1 (L) 09/22/2024 THYROGLOBULN <0.1 (L) 09/23/2023 Lab Results Component Value Date THGAB <1.0 09/22/2024 THGAB <1.0 09/23/2023 08/10/2023 total cholesterol 155, LDL 60, triglycerides 110, HDL 59 Post-operative Neck Ultrasound [facility] PT: Anjali Carlson : 1955 Date: 03/31/23 Indication: History of thyroid cancer. Technique: Real time high resolution imaging of the anterior neck was performed in longitudinal andtransverse planes. Findings: Compartment / Level I (Submandibular): no abnormal lymph nodules bilaterally Compartment / Level II (Suprahyoid parajugular): no abnormal lymph nodules bilaterally Compartment / Level III (Infrahyoid supracricoid parajugular): Left lymph node measuring 1.3 x 0.6 x 0.6 cm, clear margins, fatty hilum, no calcifications, grade 1 vascularity, right lymph node measuring 1.7 x 0.3 x 0.7 cm, clear margins, indistinct fatty hilum, no calcifications, grade 1 vascularity. Compartment / Level IV (Infracricoid parajugular): no abnormal lymph nodules bilaterally Compartment / Level V (Posterior cervical triangle): no abnormal lymph nodules bilaterally Compartment / Level (Central compartment): no abnormal lymph nodules identified Compartment / Level VII (Substernal space): no abnormal lymph nodules bilaterally Impression: The structures of the neck are shifted medially as expected post thyroidectomy. The right thyroid bed is unremarkable. Left thyroid bed with hyperechoic solid nodule vs scar tissue measuring 0.3 x 0.2 x 0.4 cm. No suspicious lymph nodes were identified in surgical anatomic compartments I - VII. Prominent lymph nodes bilaterally (one each side) in levels III, likely related to recent sinus issues. Recommendation: Repeat Neck US in 1 year. Post-operative Neck Ultrasound [facility] PT: Anjali Hussein Robyn : 1955 Date: 09/29/24 Indication: History of thyroid cancer. Technique: Real time high resolution imaging of the anterior neck was performed in longitudinal andtransverse planes. Findings: Compartment / Level I (Submandibular): no abnormal lymph nodules bilaterally Compartment / Level II (Suprahyoid parajugular): no abnormal lymph nodules bilaterally Compartment / Level III (Infrahyoid supracricoid parajugular): no abnormal lymph nodules bilaterally Compartment / Level IV (Infracricoid parajugular): no abnormal lymph nodules bilaterally Compartment / Level V (Posterior cervical triangle): no abnormal lymph nodules bilaterally Compartment / Level (Central compartment): no abnormal lymph nodules identified Compartment / Level VII (Substernal space): no abnormal lymph nodules bilaterally Impression: The structures of the neck are shifted medially as expected post thyroidectomy. The thyroid bed is unremarkable. No abnormal lymph nodes were identified in surgical anatomic compartments I - VII. Recommendation: Repeat Neck US in 2 years. Assessment and Plan Diagnoses and all orders for this visit: 1. Postoperative hypothyroidism (Primary) Assessment & Plan: On Synthroid 125 mcg alternating every other day with 112 mcg. Recent TFTs at goal. She is clinically euthyroid. Monitor yearly. Refill sent. Orders: - Synthroid 125 MCG tablet; Take 1 tablet by mouth Every Other Day. Alternate with 112 mcg Dispense: 45 tablet; Refill: 3 - Synthroid 112 MCG tablet; Take 1 tablet by mouth Every Other Day. Alternating with 125 mcg tabs Dispense: 45 tablet; Refill: 3 2. 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 Lymph node sampling was negative. Treated with 100 mCi BURRIS 09/11/2014. Scan and Tg uptake in neck only. History of a lung nodule. PET/CT scan with low SUV right lower lung nodule - no longer following. 2016: Thyrogen scan and Tg with no evidence of recurrence. 07/2022: TG < 0.1, TGAB < 1 09/2023: TG < 0.1, TG ab < 1 09/2024: TG < 0.1 and TG Ab < 1 Neck ultrasound 12/21/2021 negative for recurrence. Ultrasound 03/2023 with prominent lymph nodes - reactive due to sinus irritation, scar tissue in the left thyroid bed, no suspicious findings. US today with no remnant or suspicious lymph nodes. Repeat ultrasound q 2 years if TG level low/stable. Monitor TG and antibody yearly. Orders: - US Thyroid 3. Prediabetes Assessment & Plan: A1c up to 5.9. No change in diet, weight, activity. PCP can monitor between visits here, every 3 to 6 months. Return in about 1 year (around 09/29/2025) for next scheduled follow up. The patient was instructed to contact the clinic with any interval questions or concerns. Electronically signed by: Georgia Perez DO Jewel Bearing Facer Please note that portions of this note were completed with a voice recognition program. documented in this encounter Plan of Treatment Upcoming Encounters Date Type Department Care Team (Hood st Contact Info) Description 10/04/2025 2:15 PM EDT Office Visit [facility] [address] [place] [phone] Georgia Perez, [address] [facility] [address] [place] [address] documented as of this encounter Procedures Procedure [...] esult documented in this encounter Visit Diagnoses Diagnosis Postoperative hypothyroidism- Primary Postsurgical hypothyroidism Papillary thyroid carcinoma Prediabetes Other abnormal glucose documented in this encounter Care Teams Aeronautical Engineering Teacher Relationship Specialty Start Date End Date Seth Fry MD [address] [place] [address] PCP - General Family Medicine 08/29/21 documented as of this encounter
--- OUTSIDE RECORDS SUMMARY | 2024-09-29 13:48 | XMS_ITS | Encounter Summary ---
Author Organization [facility] yste Address [address] [place] [address] Care Team Providers Care Safe Deposit Attendant Name Role Phone Seth Fry MD Primary Care Provider + Reason for Visit * Diagnostic Imaging (Routine) - Closed Specialty Diagnoses / Procedures Referred By Contac t Referred To Contact Radiology Diagnoses Papillary thyroid carcinoma Procedures US Thyroid Georgia Perez, DO [address] [place] [address] Phone: tel: fax: Referral ID Status Reason Start Date Expiration Date Visits Re quested Visits Authorized [id number] Closed 09/29/2024 12/29/2025 1 1 Encounter Details Date Type Department Care Team (Late st Contact Info) Description 09/29/2024 1:48 PM EDT Hospital Encounter [facility] [address] [place] [phone] Social History Tobacco Use Types Packs/Day Years [...] Description 10/04/2025 2:15 PM EDT Office [address] [facility] [address] [facility] [address] [place] [address] Georgia Perez, [address] [facility] [address] [place], [place] [phone] documented as of this encounter Procedures Procedure [...] on filedocumented in this encounter Care Teams Safe Deposit Attendant Relationship Specialty Start Date End Date Seth Fry MD [address] [place] [address] PCP - General Family Medicine 08/29/21 documented as of this encounter
--- OUTSIDE RECORDS SUMMARY | 2024-12-05 09:21 | XMS_ITS | Clinical Summary ---
Author Organization [facility] Address [address] [place] [address] Care Team Providers Care Graphic Manager Name Role Phone Seth Fry MD Primary Care Provider [phone] Allergies Active Allergy Reactions Criticality Noted Date Comments Sulfa Drugs Other - please docum ent in the comment field,Rash Low 02/21/2014 Skin on ft and hands peel skin on bottoms of feet and hands excoriated Skin on ft and hands peel Medications anastrozole (Arimidex) 1 MG chemo tablet Take 1 mg by mouth every night. 02/14/2022 Active aspirin 81 MG EC tablet Take 81 mg by mouth every night. Active atorvastatin (Lipitor) 10 MG tablet Take 10 mg by mouth every night. 12/27/2021 Active cholecalciferol (Vitamin D-3) 25 MCG (1000 UT) tablet Take 2,000 Units by mouth every night. Active Sprycel 70 MG chemo tablet Take 70 mg by mouth every night. 02/25/2022 Active Synthroid 112 MCG tablet Take 112 mcg by mouth every other day. 01/22/2022 Active Synthroid 125 MCG tablet Take 125 mcg by mouth every other day. 01/22/2022 Active Active Problems Problem Noted Date Diagnosed Date Postoperative hypothyroidism 04/22/2022 S/P total thyroidectomy 03/20/2022 Overview (03/20/2022): Added automatically from request for surgery [id number] CML (chronic myelocytic leukemia) 03/20/2022 Osteopenia 03/20/2022 Hyperlipidemia 03/20/2022 Papillary thyroid carcinoma 03/20/2022 Resolved Problems Problem Noted Date Diagnosed Date Resolved Date Primary hyperparathyroidism 03/20/2022 11/12/2022 Overview (03/20/2022): Added automatically from request for surgery [id number] Family History Medical History Relation Name Comments Anesthesia problems Neg Hx Malig Hyperthermia Neg Hx Social History Tobacco Use Types Packs/Day Years Used Date Smoking Tobacco: Never Smokeless Tobacco: Never Alcohol Use Standard Drinks/Week Comments Never 0 (1 standard drink = 0.6 oz pur e alcohol) PHQ-2 Answer Date Recorded Patient Health Questionnaire-2 Score 0 11/11/2022 CAGE ASSESSMENT Answer Date Recorded Cage unable to access Not on file 05/06/2022 Cage max number of drinks Not on file 2022 Cage Beverages a week Not on file 05/06/2022 Have you ever felt you should CUT down on your d rinking? 0 05/06/2022 Have you been ANNOYED by people criticizing your drinking? 0 05/06/2022 Have you felt GUILTY about your drinking? 0 05/06/2022 Have you had a drink first t stefan in the morning (EYE-REGISTERED PHARMACIST) to steady your nerves or to get rid of a hangover? 0 05/06/2022 CAGE Questionnaire Score 0 023 PHQ-2A Answer Date Recorded Patient Health Questionnaire-2 Score 0 11/11/2022 Comments No Sex and Gender Information Value Date Recorded Sex Assigned at Female 04/30/2022 9:38 AM EST Legal Sex Female 6:36 PM EDT Gender Identity Female 04/30/2022 9:38 AM EST Sexual Orientation Not on file Last Filed Vital Signs Vital Sign Reading Time Taken Comments Blood Pressure 137/78 11/11/2022 1:47 PM EDT Pulse 71 11/11/2022 1:47 PM EDT Temperature 36.6 C (97.8 F) 11/11/2022 1:47 PM EDT Respiratory Rate 17 05/06/2022 2:20 PM EST Oxygen Saturation 95% 05/07/2022 8:03 AM EST Inhaled Oxygen Concentration - - Weight 93.4 kg (205 lb 14.6 oz) 11/11/2022 1:47 PM EDT Height 177.8 cm (5' 10 ) 11/11/2022 1:47 PM EDT Body Mass Index 29.54 11/11/2022 1:47 PM EDT Plan of Treatment Health Maintenance Due Date Last Done Comments [facility]-Bone Density Scan 1955 [facility]-Hepatitis C Screening 1955 [facility]-Infant/Child/Adol SDOH Screenings 1955 [facility]- SDOH Screenings 1971 [facility]-Adult SDOH Screenings 1971 [facility]-DTaP,Tdap,and Td Vaccines (1 - Tdap) 01/20/1972 [facility]-Zoster Vaccines (1 of 2) 01/20/1972 CT Colonography 1998 Colonoscopy 1998 FIT-DNA 1998 FIT 1998 FOBT 1998 Sigmoidoscopy 1998 [facility]-Colorectal Cancer Screening 1998 [facility]-RSV Vaccine: 60+ Years or (1 - Risk 60-74 years 1-dose series) 2013 [facility]-Breast Cancer Screening 05/24/2016 05/24/2014 [facility]-Pneumococcal Vaccine: 50+ Years (2 of 2 - PPSV23) 12/03/2018 10/08/2018 [facility]-Depression Screening 11/12/2023 11/11/2022 [id number]-41 Vaccine ( season) 2024 02/05/2022, 12/02/2021, 12/27/2020, Additional history exists [facility]-Medicare Annual Wellness (AWV) 07/29/2024 07/30/2023 [facility]-Influenza Vaccine (#1) 2025 02/07/2022 [facility]-Obesity Intervention Completed 06/04/2022, 03/04 HPV Vaccines Aged Out No longer eligi ble based on patient's age to complete this topic [facility]-HIB Vaccines Aged Out No longer e ligible based on patient's age to complete this topic [facility]-Hepatitis A Vaccines Aged Out No longer eligible based on patient's age to complete this topic [facility]-IPV Vaccines Aged Out No longer e ligible based on patient's age to complete this topic [facility]-Rotavirus Vaccines Aged Out No lo nger eligible based on patient's age to complete this topic Insurance [facility] MEDICARE Advance Directives * Full Code (Latest Code Status on File) Date Activated Date Inactivated Comments 05/06/2022 1:24 PM 05/07/2022 11:04 AM Question Answer Comments Patient has decision-making capacity? Yes Care Teams Graphic Manager Relationship Specialty Start Date End Date Seth Fry MD [address] [place] [address] [place] [address] PCP - General 09/14/20
--- OUTSIDE RECORDS SUMMARY | 2024-12-05 09:21 | XMS_ITS | Encounter Summary ---
Author Organization [facility] ([place], [place], [place], [place]) Address [address] [place] [address] Care Team Providers Care Mds Manager Name Role Phone Seth Fry MD Primary Care Provider [phone] Martha Jenkins MD Unavailable Encounter Details Date Type Department Care Team (Late Contact Info) Description 06/25/2022 Telephone [facility] [address] [place] [phone] Nalini Fitzgerald, SOLAR INSTALLER TECHNICIAN [address] [place] [id number] Social History Tobacco Use Types Packs/Day Years Used Date Smoking Tobacco: Never Assessed Comments Unknown Sex and Gender Information Value Date Recorded Sex Assigned at Not on file Legal Sex Female 5:17 PM CDT Gender Identity Not on file Sexual Orientation Not on file documented as of this encounter Plan of Treatment Upcoming Encounters Date Type Department Care Team (Late Contact Info) Description 01/16/2025 11:30 AM EDT Appointment [facility] [address] [place] [address] Tom Canales MD [address] [place] [phone] documented as of this encounter Visit Diagnoses Not on filedocumented in this encounter Care Teams Mds Manager Relationship Specialty Start Date End Date Seth Fry MD PCP - General Family Medicine 08/05/22 Martha Jenkins MD [address] [facility], [place] [phone] Odd Bundle Worker Endocrinology 06/22/19 documented as of this encounter
--- OUTSIDE RECORDS SUMMARY | 2024-12-05 09:21 | XMS_ITS | Encounter Summary ---
Author Organization [facility] ([place], [place], [place], [place]) Address [address] [place] [address] Care Team Providers Care Store Stocker Name Role Phone Seth Fry MD Primary Care Provider Martha Jenkins MD Unavailable Encounter Details Date Type Department Care Team (Late st Contact Info) Description 01/23/2022 Outside Orders [facility] Central Scheduling [address] [place] [address] Martha Jenkins MD [address] [place] [address] Hypercalcemia syndrome (Primary Dx) Social History Tobacco Use Types Packs/Day Years [...] Care Team (Late st Contact Info) Description 01/16/2025 11:30 AM EDT Appointment [facility] [address] [facility] [address] [place] [phone] Tom Canales MD [address] [facility] [address] [place] [address] documented as of this encounter Visit Diagnoses Diagnosis Hypercalcemia syndrome- Primary Hypercalcemia documented in this encounter Care Teams Store Stocker Relationship Specialty Start Date End Date Seth Fry MD PCP - General Family Medicine 08/05/22 Martha Jenkins MD [address] [facility], [place] [phone] Automatic Steel Tie Adjuster Endocrinology 06/22/19 documented as of this encounter
--- OUTSIDE RECORDS SUMMARY | 2024-12-05 09:21 | XMS_ITS | Clinical Summary ---
Author Organization [employer] ([place], [place], [place], [place]) Address [address] [place] [address] Care Team Providers Care Business Center Attendant Name Role Phone Seth Fry MD Primary Care Provider [phone] Martha Jenkins MD Unavailable Allergies Active Allergy Reactions Criticality Noted Date Comments Sulfa (Sulfonamide Antibiotics) Other (See Comments) Low 03/19/2022 Skin on ft and hands peel Medications anastrozole (ARIMIDEX) 1 mg tablet Take 1 tablet (1 mg total) by mouth daily. 3 Active Adult Low Dose Aspirin 81 mg EC tablet 3 Active atorvastatin (LIPITOR) 10 MG tablet 3 Active SpryceL 70 mg tablet Take 1 tablet (70 mg total) by mouth daily. 3 Active Synthroid 112 mcg tabletIndicatio ns:Malignant neoplasm of thyroid gland (HCC) TAKE 1 TABLET EVERY OTHER DAY ALTERNATING WITH 125 MCG EVERY OTHER DAY 45 tablet 3 3 Active Synthroid 125 mcg tabletIndicatio ns:Malignant neoplasm of thyroid gland (HCC) TAKE 1 TABLET EVERY OTHER DAY ALTERNATING WITH 112 MCG EVERY OTHER DAY. 45 tablet 3 3 Active cholecalciferol (Vitamin D3) 25 mcg (1,000 unit) tablet Take 1 tablet (1,000 Units total) by mouth daily. Active meclizine (ANTIVERT) 25 mg tablet Take 1 tablet (25 mg total) by mouth 4 (four) times daily as needed. 4 Active calcium carbonate 600mg (Caltrate) 600 mg calcium (1,500 mg) tab Take 1 tablet (1,500 mg total) by mouth 2 (two) times daily with breakfast and dinner. Active Active Problems Problem Noted Date Diagnosed Date Malignant neoplasm of upper- inner quadrant of right breast in female, estrogen receptor positive 07/10/2022 Cancer Staging:Clinical:Stage IA(cT1c, cN0, cM0, G2, ER+, NC+, HER2-) - Unsigned Encounter for general adult medical examination without abnormal findings 07/09/2022 History of thyroid cancer 04/22/2022 History of breast cancer 04/22/2022 Primary hyperparathyroidism 03/20/2022 Overview (07/09/2022): Added automatically from request for surgery [id number] S/P total thyroidectomy 03/20/2022 Overview (07/09/2022): Added automatically from request for surgery [id number] Hyperlipidemia 03/20/2022 Osteopenia 03/20/2022 CML (chronic myelocytic leukemia) 03/20/2022 Thyroid nodule 05/04/2021 Papillary carcinoma of thyroid 01/15/2021 Hypercalcemia 01/15/2021 Vitamin D deficiency 01/15/2021 Postoperative hypothyroidism 07/04/2020 Immunizations Name Administration Dates Next Due Influenza, Unspecified Pf 02/07/2022 Social History Tobacco Use Types Packs/Day Years Used Date Smoking Tobacco: Never Passive Smoke Exposure: Never Smokeless Tobacco: Never Tobacco Cessation:Counseling Given: No Alcohol Use Standard Drinks/Week Comments Not Currently 0 (1 standard drink = 0.6 oz pur e alcohol) Food Insecurity Answer Date Recorded Food run out past 12 months Not on file 05/04 Food did not last past 12 months Not on file 05/22/2023 Employment Answer Date Recorded Help finding and keeping a job Not on file 0 05/22/2023 Family and Community Support Answer Paul e Recorded Help with Day to Day Activities Not on file 05/22/2023 Feeling Lonely or Isolated Not on file 05/22 Educational Attainment Answer Date Franck rded Speak language other than Portuguese at home Not on file 05/22/2023 Want help with school or training Not on file 05/22/2023 Substance Use Answer Date Recorded Used prescription meds for non-medical reasons N ot on file 05/22/2023 Used illegal drugs past 12 months Not on file 05/22/2023 Comments Unknown Sex and Gender Information Value Date Recorded Sex Assigned at Not on file Legal Sex Female 5:17 PM CDT Gender Identity Not on file Sexual Orientation Not on file Last Filed Vital Signs Vital Sign Reading Time Taken Comments Blood Pressure 128/76 01/11/2024 11:59 AM EDT Pulse 79 01/11/2024 11:59 AM EDT Temperature 36.7 C (98.1 F) 01/11/2024 11:59 AM EDT Respiratory Rate 16 01/11/2024 11:59 AM EDT Oxygen Saturation 96% 01/11/2024 11:59 AM EDT RA Inhaled Oxygen Concentration - - Weight 91.6 kg (202 lb) 01/11/2024 11:59 AM EDT Height 177.8 cm (5' 10 ) 01/11/2024 11:59 AM EDT Body Mass Index 28.98 01/11/2024 11:59 AM EDT Plan of Treatment Upcoming Encounters Date Type Department Care Team (Late st Contact Info) Description 01/16/2025 11:30 AM EDT Appointment [facility] [address] [place] [address] Tom Canales MD [address] [place] [address] Health Maintenance Due Date Last Done Comments Medicare Initial AWV G0438 CT Colonography 1955 Colonoscopy 1955 Colorectal Cancer Screening 1955 DXA SCAN 1955 FOBT/FIT 1953 Fit-DNA (Cologuard) 1953 Sigmoidoscopy 1953 Depression Screening (12+) 1965 Hepatitis C Screening 1971 DTAP/TDAP/TD VACCINES (1 - Tdap) 01/20/1972 Shingles Vaccine (Zoster) (1 of 2) 01/20/1972 Respiratory Syncytial Virus (RSV) Adult or (1 - Risk 60-74 years 1-dose series) 2013 Breast Cancer Screening 05/24/2016 05/24/2014 Pneumococcal 50+ years (2 of 2 - PPSV23) 12/03/2018 10/08/2018 COVID-19 VACCINE (2023-2 5 season) 2024 02/05/2022, 12/02/2021, 12/27/2020, Additional history exists Falls Risk Screening 05/04/2024 Influenza Vaccine (#1) 2025 02/09/2023 Tobacco Cessation Counseling and Screening (12+) 01/10/2025 01/11/2024 Insurance [facility] MEDICARE ADVANTAGE Care Teams Business Center Attendant Relationship Specialty Start Date End Date Seth Fry MD PCP - General Family Medicine 08/05/22 Martha Jenkins MD [address] [place], [place] [phone] Clothing Trades Workers Endocrinology 06/22/19
--- OUTSIDE RECORDS SUMMARY | 2024-12-05 09:22 | XMS_ITS | Encounter Summary ---
Author Organization [facility] ystem Address [facility] [place] [address] Care Team Providers Care Clinical Administrator Name Role Phone Seth Fry MD Primary Care Provider + Encounter Details Date Type Department Care Team (Late st Contact Info) Description 09/22/2024 Results Follow-Up [facility] [address] [place] [address] Georgia Perez DO [address] [place] [address] Social History Tobacco Use Types Packs/Day Years [...] Description 10/04/2025 2:15 PM EDT Office Visit [facility] [address] [place] [address] Georgia Perez, DO [address] [address] documented as of this encounter Visit Diagnoses Not on filedocumented in this encounter Care Teams Clinical Administrator Relationship Specialty Start Date End Date Seth Fry MD [address] [place] [address] PCP - General Family Medicine 08/29/21 documented as of this encounter
--- OUTSIDE RECORDS SUMMARY | 2024-12-05 09:22 | XMS_ITS | Encounter Summary ---
Author Organization [employer] ([place], [place], [place], [place]) Address [address] [place] [address] Care Team Providers Care Branch Controller Name Role Phone Seth Fry MD Primary Care Provider [phone] Martha Jenkins MD Unavailable Reason for Visit * Reason Comments Medication Refill Encounter Details Date Type Department Care Team (Late st Contact Info) Description 08/18/2023 Refill [facility] Endocrinology [address] [place] [address] [address] Martha Jenkins MD [address] [place] [address] Malignant neoplasm of thyroid gland (HCC) Social History Tobacco Use Types Packs/Day Years Used Date Smoking Tobacco: Never Passive Smoke Exposure: Never Smokeless Tobacco: Never Alcohol Use Standard Drinks/Week Comments Not Currently [...] Date Franck rded Speak language other than Kyrgyz at home Not on file 05/22/2023 Want [...] Info) Description 01/16/2025 11:30 AM EDT Appointment [facility] - [facility] [address] [place] [address] Tom Canales MD [address] [place] [address] documented as of this encounter Visit Diagnoses Diagnosis Malignant neoplasm of thyroid gland (HCC) Malignant neoplasm of thyroid gland documented in this encounter Care Teams Branch Controller Relationship Specialty Start Date End Date Seth Fry MD PCP - General Family Medicine 08/05/22 Martha Jenkins MD [address] [place] [address] Rocket Engine Tester Endocrinology 06/22/19 documented as of this encounter
--- OUTSIDE RECORDS SUMMARY | 2024-12-05 09:22 | XMS_ITS | Referral Summary ---
Author Organization [employer] ([place], [place], [place], [place]) Address [address] [place] [address] Care Team Providers Care Senior Sql Database Developer Name Role Phone Seht Fry MD Primary Care Provider [phone] Martha Jenkins MD Unavailable Allergies Active Allergy [...] Cancer Staging:Clinical:Stage IA(cT1c, cN0, cM0, G2, ER+, CT+, HER2-) - Unsigned Encounter for general adult medical examination without abnormal findings 07/09/2022 History of thyroid cancer 04/22/2022 History of breast cancer 04/22/2022 Primary hyperparathyroidism 03/20/2022 Overview (07/09/2022): Added automatically from request for surgery [id number] S/P total thyroidectomy 03/20/2022 Overview (07/09/2022): Added automatically from request for surgery [id number] Hyperlipidemia 03/20/2022 Osteopenia 03/20/2022 CML (chronic myelocytic [...] Date Franck rded Speak language other than Greek at home Not on file 05/22/2023 Want [...] Info) Description 01/16/2025 11:30 AM EDT Appointment [facility] - [facility] [address] [place] [address] Tom Canales MD [address] [place] [address] Insurance [facility] MEDICARE ADVANTAGE Care Teams Senior Sql Database Developer Relationship Specialty Start Date End Date Seth Fry MD PCP - General Family Medicine 08/05/22 Martha Jenkins MD [address] [place], [place] [phone] Casing Material Weigher Endocrinology 06/22/19
--- OUTSIDE RECORDS SUMMARY | 2024-12-05 09:22 | XMS_ITS | Clinical Summary ---
Author Organization [facility] Address [address] [place] [id number] Care Team Providers Care Quality Process Auditor Name Role Phone Seth Fry MD Primary Care Provider + Allergies Active Allergy Reactions Criticality Noted Date Comments Sulfa Antibiotics Rash Low 08/29/2021 Medications anastrozole (ARIMIDEX) 1 MG tablet Daily. 08/09/19 22 Active aspirin 81 MG EC tablet Take 1 tablet by mouth Daily. Active cholecalciferol (VITAMIN D3) 25 MCG (1000 UT) tablet Take 1 tablet by mouth Daily. Active Calcium Carbonate (Caltrate 600) 1500 (600 Ca) MG tablet Take 1 tablet by mouth Daily. Active potassium chloride 10 MEQ CR tablet Take 1 tablet by mouth Daily. 02/24/20 24 Active Tasigna 150 MG capsule capsule 07/12/19 25 Active atorvastatin (LIPITOR) 10 MG tabletIndications: Hypercholesterolem ia Take 1 tablet by mouth Daily. 90 tablet 3 08/03/19 25 Active Synthroid 125 MCG tabletIndications: Postoperative hypothyroidism Take 1 tablet by mouth Every Other Day. Alternate with 112 mcg 45 tablet 3 10/06/19 25 Active Synthroid 112 MCG tabletIndications: Postoperative hypothyroidism Take 1 tablet by mouth Every Other Day. Alternating with 125 mcg tabs 45 tablet 3 10/06/19 25 Active Active Problems Problem Noted Date Diagnosed Date Prediabetes 09/29/2024 Assessment & Plan (09/29/2024 2:06 PM EDT): A1c up to 5.9. No change in diet, weight, activity. PCP can monitor between visits here, every 3 to 6 months. History of breast cancer 04/22/2022 History of thyroid cancer 04/22/2022 Postoperative hypothyroidism 04/22/2022 Assessment & Plan (09/29/2024 2:06 PM EDT): On Synthroid 125 mcg alternating every other day with 112 mcg. Recent TFTs at goal. She is clinically euthyroid. Monitor yearly. Refill sent. CML (chronic myelocytic leukemia) 03/20/2022 Hyperlipidemia 03/20/2022 Osteopenia 03/20/2022 Papillary thyroid carcinoma 03/20/2022 Assessment & Plan (09/29/2024 2:06 PM EDT): Right lobectomy 02/22/14 with 3 cm right [...] level low/stable. Monitor TG and antibody yearly. Primary hyperparathyroidism 03/20/2022 Overview (09/11/2022): Added automatically from request for surgery [id number] S/P total thyroidectomy 03/20/2022 Overview (09/11/2022): Added automatically from request for surgery [id number] Encounters Date Type Department Care Team Description 10/05/2024 Prior Authorization [facility] [address] [place] [address] Georgia Perez, Synthroid Approval 10/05/2024 Refill [facility] [address] [place] [address] Georgia Perez DO Postoperative hypothyroidism 09/29/2024 1:48 PM EDT Hospital Encounter [facility] [address] [place] [address] 09/29/2024 1:30 PM EDT Office Visit [facility] [address] [place] [address] Georgia Perez DO Postoperative hypothyroidism (Primary Dx); Papillary thyroid carcinoma; Prediabetes 09/29/2024 Travel 09/22/2024 11:15 AM EDT Lab [facility] [address] [place] [address] Postoperative hypothyroidism; Papillary thyroid carcinoma; Prediabetes; Primary hyperparathyroidism 09/22/2024 Results Follow-Up [facility] [address] [place] [address] Georgia Perez DO 09/22/2024 Travel from Last 3 Months Immunizations Immunization Administration Dates Next Due COVID-19 (PFIZER) Purple Cap Monovalent 12/28/19 21,07/21/2020,06/27/2020 Covid-19 (Pfizer) Lawrence Cap Monovalent 12/02/2021 Fluzone High-Dose 65+YRS 02/23/2024 Fluzone High-Dose 65+yrs 02/09/2023 Influenza, Unspecified 02/07/2022 Pneumococcal Conjugate 13-Valent (PCV13) 019 Family History Medical History Relation Name Comments No Known Problems Father Hyperlipidemia Mother Mother Hypertension Mother Mother Relation Name Status Comments Father Mother Mother Social History Tobacco Use Types Packs/Day Years Used Date Smoking Tobacco: Never Passive Smoke Exposure: Never Smokeless Tobacco: Never Tobacco Cessation:Counseling Given: Not Answered Alcohol Use Standard Drinks/Week Comments Never 0 [...] Pulse 67 09/29/2024 1:22 PM EDT Temperature 36.4 C (97.5 F) 08/02/2024 2:13 PM EDT Respiratory Rate 18 08/02/2024 2:13 PM EDT Oxygen Saturation 98% 09/29/2024 1:22 PM EDT Inhaled Oxygen Concentration - - Weight 90.6 kg (199 lb 12.8 oz) 09/29/2024 1:22 PM EDT Height 177.8 cm (5' 10 ) 09/29/2024 1:22 PM EDT Body Mass Index 28.67 09/29/2024 1:22 PM EDT Plan of Treatment Upcoming Encounters Date Type Department Care Team (Late st Contact Info) Description 10/04/2025 2:15 PM EDT Office Visit [facility] [address] [place] [address] Georgia Perez, DO [address] [place] [address] Health Maintenance Due Date Last Done Comments DXA SCAN 1955 LIPID PANEL 1953 TDAP/TD VACCINES (1 - Tdap) 01/20/1972 ZOSTER VACCINE (1 of 2) 01/20/1972 COLOGUARD 1998 COLON CANCER SCREENING 5 YEA R SIGMOIDOSCOPY 1998 CT COLONOGRAPHY 1998 FECAL OCCULT BLOOD TEST 1998 FIT Testing (1 year) 1998 Pneumococcal Vaccine 50+ (2 of 2 - PPSV23) 12/03/2018 10/08/2018 HEPATITIS C SCREENING 08/28/2021 COVID-19 Vaccine (8 - Pfizer risk season) 2024 02/23/2024, 02/09/2023, 02/05/2022, Additional history exists INFLUENZA VACCINE 02/01/2025 02/23/2024, , 02/07/2022 ANNUAL WELLNESS VISIT 08/02/2025 08/02/2024 , 08/02/2024, 07/30/2023, Additional history exists MAMMOGRAM 07/11/2026 07/11/2024, 0310/2023, 07/02/2022, Additional history exists COLONOSCOPY 01/03/2028 07/06/2020 COLORECTAL CANCER SCREENING 01/03/2028 Procedures Procedure Name Priority Date/Time Associated Diagnosis Comments US THYROID Routine 09/29/2024 1:48 PM EDT Papillary thyroid carcinoma CONV THYROGLOBULIN BY YANA Routine 09/22/2024 11:06 AM EDT Papillary thyroid carcinoma COMPREHENSIVE METABOLIC PANEL Routine 09/22/2024 11:06 AM EDT Primary hyperparathyroidism HEMOGLOBIN A1C Routine 09/22/2024 11:06 AM EDT Prediabetes THYROGLOBULIN ANTIBODY AND THYROGLOBULIN, YANA OR LC/MS-MS Routine 09/22/2024 11:06 AM EDT Papillary thyroid carcinoma TSH Routine 09/22/2024 11:06 AM EDT Postoperative hypothyroidism T4, FREE Routine 09/22/2024 11:06 AM EDT Postoperative hypothyroidism SCANNED - LABS 09/15/2024 SCANNED - IMAGING 09/13/2024 SCANNED - LABS 09/05/2024 SCANNED - MAMMO 07/11/2024 SCANNED - COLONOSCOPY 07/06/2020 from Last 3 Months or Most Recently Relevant to Health Maintenance Results * US Thyroid (09/29/2024 1:48 PM EDT) Narrative SYSTEMGENERATED, DOCUMENTATION - 09/29/2024 1:48 PM EDT Please see performing physician's note for result. Georgia Romoi DO IMG US ORDERABLES Final R esult * (ABNORMAL) Thyroglobulin By YANA (09/22/2024 11:06 AM EDT) THYROGLOBULIN BY YANA <0.1(L) 1.5 - 38.5 ng/mL 09/23/2024 7:09 PM EDT [facility] Comment: According to the National Academy of Clinical Biochemistry, the reference interval for Thyroglobulin (TG) should be related to euthyroid patients and not for patients who underwent thyroidectomy. TG reference intervals for these patients depend on the residual mass of the thyroid tissue left after surgery. Establishing a post-operative baseline is recommended. The assay limit of quantitation is 0.1 ng/mL Thyroglobulin measured by Claire Casper Immunometric Assay Blood Structure of left upper limb / Unknown Venipuncture / Unknown 09/22/2024 11:06 AM EDT 09/22/2024 11:06 AM EDT Narrative [facility] - 09/23/2024 7:09 PM EDT Performed at: [address] [place] [id number] Construction Craft Laborer: Kali Hinson PhD, Phone: [phone] [facility] BLOOD ORDERABLES [place] l Result [facility] [address] [place] [id number], * Thyroglobulin Antibody and Thyroglobulin, YANA or LC/MS-MS (09/22/2024 11:06 AM EDT) Thyroglobulin Ab <1.0 0.0 - 0.9 IU/mL 09/23/2024 7:09 PM EDT [facility] Comment: Thyroglobulin Antibody measured by Claire Casper Methodology It should be noted that the presence of thyroglobulin antibodies may not be pathogenic nor diagnostic, especially at very low levels. The assay social work therapist has found that four percent of individuals without evidence of thyroid disease or autoimmunity will have positive TgAb levels up to 4 IU/mL. Blood Structure of left upper limb / Unknown Venipuncture / Unknown 09/22/2024 11:06 AM EDT 09/22/2024 11:06 AM EDT Narrative [facility] - 09/23/2024 7:09 PM EDT Performed at: [address] [place] [id number] Construction Craft Laborer: Kali Hinson PhD, Phone: [phone] [facility] BLOOD ORDERABLES Belem l Result Performing Organization Address City/[facility]/ZIP Co de Phone Number [address] [address], [place] [phone] * TSH (09/22/2024 11:06 AM EDT) TSH 0.673 0.270 - 4.200 uIU/mL 09/22/2024 2:42 PM EDT [facility] Blood Venipuncture / Unknown 09/22/2024 11:06 AM EDT 09/22/2024 11:06 AM EDT [facility] BLOOD ORDERABLES Belem l Result [facility]
[address] [place] [address], [place] [phone] * (ABNORMAL) T4, Free (09/22/2024 11:06 AM EDT) Free T4 1.76(H) 0.92 - 1.68 ng/dL 09/22/2024 2:42 PM EDT [facility] Blood Venipuncture / Unknown 09/22/2024 11:06 AM EDT 09/22/2024 11:06 AM EDT Georgia Hammond [facility] LAB BLOOD ORDERABLES Belem l Result Performing Organization Address City/[facility]/ZIP Co de Phone Number [facility]
[address] [place] [address], * (ABNORMAL) Hemoglobin A1c (09/22/2024 11:06 AM EDT) Hemoglobin A1C 5.90(H) 4.80 - 5.60 % 09/22/2024 2:36 PM EDT [facility] Blood Venipuncture / Unknown 09/22/2024 11:06 AM EDT 09/22/2024 11:06 AM EDT Narrative [facility] - 09/22/2024 2:36 PM EDT Hemoglobin A1C Ranges: Increased Risk for Diabetes 5.7% to 6.4% Diabetes >= 6.5% Diabetic Goal < 7.0% Georgia Hammond [facility] BLOOD ORDERABLES Belem l Result Performing Organization Address [facility] Co de Phone Number [facility]
[address] [place] [address], * (ABNORMAL) Comprehensive Metabolic Panel (09/22/2024 11:06 AM EDT) Glucose 88 65 - 99 mg/dL 09/22/2024 2:35 PM EDT [facility] BUN 14 8 - 23 mg/dL 09/22/2024 2:35 PM EDT [facility] Creatinine 1.04(H) 0.57 - 1.00 mg/dL 09/22/2024 2:35 PM EDT [facility] Sodium 138 136 - 145 mmol/L 09/22/2024 2:35 PM EDT [facility] Potassium 4.2 3.5 - 5.2 mmol/L 09/22/2024 2:35 PM EDT [facility] Chloride 101 98 - 107 mmol/L 09/22/2024 2:35 PM [facility] CO2 26.2 22.0 - 29.0 mmol/L 09/22/2024 2:35 PM [facility] Calcium 9.7 8.6 - 10.5 mg/dL 09/22/2024 2:35 PM [facility] Total Protein 7.4 6.0 - 8.5 g/dL 09/22/2024 2:35 PM [facility] Albumin 4.2 3.5 - 5.2 g/dL 09/22/2024 2:35 PM [facility] ALT (SGPT) 38(H) 1 - 33 U/L 09/22/2024 2:35 PM [facility] AST (SGOT) 31 1 - 32 U/L 09/22/2024 2:35 PM [facility] Alkaline Phosphatase 70 39 - 117 U/L 09/22/2024 2:35 PM [facility] Total Bilirubin 0.6 0.0 - 1.2 mg/dL 09/22/2024 2:35 PM [facility] Globulin 3.2 gm/dL 09/22/2024 2:35 PM [facility] A/G Ratio 1.3 g/dL 09/22/2024 2:35 PM [facility] BUN/Creatinine Ratio 13.5 7.0 - 25.0 09/22/2024 2:35 PM [facility] Anion Gap 10.8 5.0 - 15.0 mmol/L 09/22/2024 2:35 PM [facility] eGFR 57.6(L) >60.0 mL/min/1.7 3 09/22/2024 2:35 PM [facility] Blood Venipuncture / Unknown 09/22/2024 11:06 AM EDT 09/22/2024 11:06 AM [facility] - 09/22/2024 2:35 PM EDT GFR Categories in Chronic Kidney Disease (CKD) GFR Category GFR (mL/min/1.73) Interpretation G1 90 or greater Normal or high (1) G2 60-89 Mild decrease (1) G3a 45-59 Mild to moderate decrease G3b 30-44 Moderate to severe decrease G4 15-29 Severe decrease G5 14 or less Kidney failure (1)In the absence of evidence of kidney disease, neither GFR category G1 or G2 fulfill the criteria for CKD. eGFR calculation 2020 CKD-EPI creatinine equation, which does not include race as a factor Georgia Perez DO LAB BLOOD ORDERABLES Belem l Result [facility]
[address] [place] [address], [place] [phone] * LABS SCANNED (09/15/2024) Only the most recent of2 resultswithin the time period is included. Seth Fry MD LAB BLOOD ORDERABLES Fin al Result * IMAGING SCANNED (09/13/2024) Anatomical Region Laterality Modality Radiographic Yana ging Seth Fry MD G DIAGNOSTIC IMAGING O RDERABLES Final Result * MAMMO Scan (07/11/2024) Anatomical Region Laterality Modality Other Seth Fry MD CHART REVIEW TABS Fin al Result * Colonoscopy, Scan (07/06/2020) Seth Fry MD CHART REVIEW TABS Fin al Result from Last 3 Months or Most Recently Relevant to Health Maintenance Insurance [facility] Medicare Advantage [employer] PPO [place] [id number] Care Teams Quality Process Auditor Relationship Specialty Start Date End Date Seth Fry MD [address] [place] [address] PCP - General Family Medicine 08/29/21
[2024-12-05 09:54] LABS: Hematocrit 40.8 % (37.0-47.0); Hemoglobin 13.1 g/dL (12.2-16.2); Immature Granulocytes % 0.6 %; Mean Corpuscular HGB Conc 32.1 g/dL (31.8-35.4); Mean Corpuscular Hemoglobin 28.8 pg (27.0-31.2); Mean Corpuscular Volume 89.7 fl (81-99); Nucleated Red Blood Cells % 0 %; Platelet Count 211 K/mm3 (142-424); Red Blood Count 4.55 M/mm3 (4.20-5.40); Red Cell Distribution Width-SD 47.0 fL; White Blood Count 6.5 K/mm3 (4.8-10.8)
[2024-12-05 10:23] LABS: Total Cells Counted 100
[2024-12-05 10:25] LABS: RBC Morphology Normal
[2024-12-05 11:06] LABS: Alanine Aminotransferase 36 U/L (12-78); Albumin Level 3.9 g/dl (3.5-5.0); Albumin/Globulin Ratio 1.6 (1.1-1.8); Alkaline Phosphatase 62 U/L (38-126); Anion Gap 9.2 mEq/L (5-15); Aspartate Amino Transferase 35 U/L (14-36); Bilirubin,Total 0.6 mg/dl (0.2-1.3); Blood Urea Nitrogen 18 mg/dl (7-17); Calcium 9.0 mg/dl (8.4-10.2); Carbon Dioxide 24 mmol/L (22.0-30.0); Chloride 108 mmol/L (98-107); Creatinine,Serum 0.90 mg/dl (0.52-1.04); Estimated Glomerular Filt Rate 62 ml/min (>60); GFR (African American) 75 ML/MIN (>60); Globulin 2.5 g/dL (1.3-3.2); Glucose 102 mg/dl (74-100); Potassium 4.2 mmoL/L (3.5-5.1); Sodium 137 mmol/L (136-145); Total Protein,Serum 6.4 g/dl (6.3-8.2)
[2024-12-12 11:30] LABS: e13a2 (b2a2) transcript 0.0099; e14a2 (b3a2) transcript <0.0032
[2024-12-12 11:31] LABS: PDF: SCANNED IMAGE
== END 2024-12-05 23:59 | disposition home or self-care (01) ==
LOC: LAB 09:16
PROVIDERS: PCP Family Medicine; Visit Provider Internal Medicine Medical Oncology
DX: C92.10 Chronic myeloid leukemia, BCR/ABL-positive, not having achieved remission (principal)
CPT/HCPCS: 36415; 80053; 81206; 85007; 85025; 85027

== ENCOUNTER 2024-12-13 08:53 | Outpatient (CLI) | payer MEDICARE, SELFPAY ==
--- OUTSIDE RECORDS SUMMARY | 2023-03-31 12:06 | XMS_ITS | Encounter Summary ---
Author Organization [facility] yste Address [address] [place] [address] Care Team Providers Care Motorcyles Final Inspector Name Role Phone Seth Fry MD Primary Care Provider + Reason for Visit * Diagnostic Imaging (Routine) - Closed Specialty Diagnoses / Procedures Referred By Contac t Referred To Contact Radiology Diagnoses Papillary thyroid carcinoma Procedures US Thyroid Georgia Perez, DO [address] [place] [address] Phone: tel: fax: Referral ID Status Reason Start Date Expiration Date Visits Re quested Visits Authorized [id number] Closed 03/31/2023 03/30/2024 1 1 Encounter Details Date Type Department Care Team (Late st Contact Info) Description 03/31/2023 11:06 AM EST Hospital Encounter [facility] ENDOCR[facility] [address] [facility] [address] [place] [phone] Social History Tobacco Use Types Packs/Day Years [...] Description 10/04/2025 2:15 PM EDT Office Visit [facility] END[facility]CR[facility] [address] [place] [address] Georgia Perez DO [address] [facility] [address] [place] [address] documented as of this encounter [...] on filedocumented in this encounter Care Teams Motorcyles Final Inspector Relationship Specialty Start Date End Date Seth Fry MD [address] [facility] [place] [address] PCP - General Family Medicine 08/29/21 documented as of this encounter
--- OUTSIDE RECORDS SUMMARY | 2024-09-29 13:48 | XMS_ITS | Encounter Summary ---
Author Organization [facility] yste Address [address] [place] [address] Care Team Providers Care Collet Driller Name Role Phone Seth Fry MD Primary Care Provider + Reason for Visit * Diagnostic Imaging (Routine) - Closed Specialty Diagnoses / Procedures Referred By Contac t Referred To Contact Radiology Diagnoses Papillary thyroid carcinoma Procedures US Thyroid Georgia Perez, DO [address] [place] [address] Phone: tel: fax: Referral ID Status Reason Start Date Expiration Date Visits Re quested Visits Authorized [id number] Closed 09/29/2024 12/29/2025 1 1 Encounter Details Date Type Department Care Team (Late st Contact Info) Description 09/29/2024 1:48 PM EDT Hospital Encounter [facility] [address] [place] [phone] Social History Tobacco Use Types Packs/Day Years [...] Description 10/04/2025 2:15 PM EDT Office Visit [facility] [address] [facility] [address] [place] [address] Georgia Perez, [address] [facility] [address] [place], [place] [phone] documented as of this encounter Procedures Procedure [...] on filedocumented in this encounter Care Teams Collet Driller Relationship Specialty Start Date End Date Seth Fry MD [address] [place] [address] PCP - General Family Medicine 08/29/21 documented as of this encounter
--- OUTSIDE RECORDS SUMMARY | 2024-12-13 08:55 | XMS_ITS | Clinical Summary ---
Author Organization [facility] ([place], [place], [place], [place]) Address [address] [place] [address] Care Team Providers Care Oil Truck Driver Name Role Phone Seth Fry MD Primary Care Provider [phone] Martha Jenkins MD Unavailable Allergies Active Allergy [...] (07/09/2022): Added automatically from request for surgery [id number] S/P total thyroidectomy 03/20/2022 Overview (07/09/2022): Added automatically from request for surgery [id number] Hyperlipidemia 03/20/2022 Osteopenia 03/20/2022 CML (chronic myelocytic leukemia) 03/20/2022 Thyroid nodule 05/04/2021 Papillary carcinoma of thyroid 01/15/2021 Hypercalcemia 01/15/2021 Vitamin D deficiency 01/15/2021 Postoperative hypothyroidism 07/04/2020 Immunizations Name Administration Dates Next Due Influenza, Unspecified 02/07/2022 Social History Tobacco Use Types Packs/Day [...] Date Franck rded Speak language other than Kiswahili at home Not on file 05/22/2023 Want [...] Info) Description 01/16/2025 11:30 AM EDT Appointment [facility] - [employer] [address] [place] [address] Tom Canales MD [address] [place] [address] Health Maintenance Due Date Last [...] Counseling and Screening (12+) 01/10/2025 01/11/2024 Insurance [facility] MEDICARE ADVANTAGE Care Teams Oil Truck Driver Relationship Specialty Start Date End Date Seth Fry MD PCP - General Family Medicine 08/05/22 Martha Jenkins MD [address] [place], [place] [phone] Data Processing Auditor Endocrinology 06/22/19
--- OUTSIDE RECORDS SUMMARY | 2024-12-13 08:55 | XMS_ITS | Clinical Summary ---
Author Organization [facility] Address [address] [place] [address] Care Team Providers Care Homicide Investigator Name Role Phone Seth Fry MD Primary Care Provider [phone] Allergies Active Allergy Reactions Criticality Noted Date [...] (03/20/2022): Added automatically from request for surgery [id number] CML (chronic myelocytic leukemia) 03/20/2022 Osteopenia 03/20/2022 Hyperlipidemia 03/20/2022 Papillary thyroid carcinoma 03/20/2022 Resolved Problems Problem Noted Date Diagnosed Date Resolved Date Primary hyperparathyroidism 03/20/2022 11/12/2022 Overview (03/20/2022): Added automatically from request for surgery [id number] Family History Medical History Relation Name Comments [...] drink first t stefan in the morning (EYE-SHOE WORKER) to steady your nerves or to get [...] Density Scan 1955 [facility]-Hepatitis C Screening 1955 [facility]-/Child/Adol SDOH Screenings 1955 [facility]- SDOH Screenings 1971 [...] PPSV23) 12/03/2018 10/08/2018 [facility]-Depression Screening 11/12/2023 11/11/2022 [id number] Vaccine ( season) 2024 02/05/2022, 12/02/2021, 12/27/2020, [...] patient's age to complete this topic Insurance [facility] MEDICARE Advance Directives * Full Code (Latest Code Status on File) Date Activated Date Inactivated Comments 05/06/2022 1:24 PM 05/07/2022 11:04 AM Question Answer Comments Patient has decision-making capacity? Yes Care Teams Homicide Investigator Relationship Specialty Start Date End Date Seth Fry MD [address] [place] [address] [place] [address] PCP - General 09/14/20
--- OUTSIDE RECORDS SUMMARY | 2024-12-13 08:55 | XMS_ITS | Referral Summary ---
Author Organization [employer] ([place], [place], [place], [place]) Address [address] [place] [address] Care Team Providers Care Head Of Store Operations Name Role Phone Seth Fry MD Primary Care Provider [phone] Martha Jenkins MD Unavailable Allergies Active Allergy [...] Cancer Staging:Clinical:Stage IA(cT1c, cN0, cM0, G2, ER+, DC+, HER2-) - Unsigned Encounter for general adult medical examination without abnormal findings 07/09/2022 History of thyroid cancer 04/22/2022 History of breast cancer 04/22/2022 Primary hyperparathyroidism 03/20/2022 Overview (07/09/2022): Added automatically from request for surgery [id number] S/P total thyroidectomy 03/20/2022 Overview (07/09/2022): Added automatically from request for surgery [id number] Hyperlipidemia 03/20/2022 Osteopenia 03/20/2022 CML (chronic myelocytic [...] Date Franck rded Speak language other than Macedonian at home Not on file 05/22/2023 Want [...] Info) Description 01/16/2025 11:30 AM EDT Appointment [facility] - [facility] [address] [place] [address] Tom Canales MD [address] [place] [address] Insurance [facility] MEDICARE ADVANTAGE Care Teams Head Of Store Operations Relationship Specialty Start Date End Date Seth Fry MD PCP - General Family Medicine 08/05/22 Martha Jenkins MD [address] [place], [place] [address] Runway Model Endocrinology 06/22/19
--- OUTSIDE RECORDS SUMMARY | 2024-12-13 08:55 | XMS_ITS | Encounter Summary ---
Author Organization [employer] ([place], [place], [place], [place]) Address [address] [place] [address] Care Team Providers Care Sr Solutions Consultant Name Role Phone Seth Fry MD Primary Care Provider [phone] Martha Jenkins MD Unavailable Encounter Details Date Type Department Care Team (Late Contact Info) Description 06/25/2022 Telephone [facility] - [facility] [address] [place] [address] Nalini Fitzgerald, AIRCRAFT POWERPLANT REPAIRER [address] [place] [address] [phone] Social History Tobacco Use Types Packs/Day Years [...] Info) Description 01/16/2025 11:30 AM EDT Appointment [facility] - [facility] [address] [place] [address] Tom Canales MD [address] [place] [address] documented as of this encounter Visit Diagnoses Not on filedocumented in this encounter Care Teams Sr Solutions Consultant Relationship Specialty Start Date End Date Seth Fry MD PCP - General Family Medicine 08/05/22 Martha Jenkins MD [address] [facility], [place] [phone] Sheep Or Calf Grader Endocrinology 06/22/19 documented as of this encounter
--- OUTSIDE RECORDS SUMMARY | 2024-12-13 08:55 | XMS_ITS | Encounter Summary ---
Author Organization [employer] ([place], [place], [place], [place]) Address [address] [place] [address] Care Team Providers Care City Council Member Name Role Phone Seth Fry MD Primary Care Provider [phone] Martha Jenkins MD Unavailable Reason for Visit * Reason Comments Medication Refill Encounter Details Date Type Department Care Team (Late st Contact Info) Description 08/18/2023 Refill [facility] Endocrinology [address] [place] [address] [address] Martha Jenkins MD [address] [place] [address] Malignant neoplasm of thyroid gland [...] Date Franck rded Speak language other than Russian at home Not on file 05/22/2023 Want [...] Info) Description 01/16/2025 11:30 AM EDT Appointment [facility] - [facility] [address] [place] [address] Tom Canales MD [address] [place] [address] documented as of this encounter Visit Diagnoses Diagnosis Malignant neoplasm of thyroid gland (HCC) Malignant neoplasm of thyroid gland documented in this encounter Care Teams City Council Member Relationship Specialty Start Date End Date eSth Fry MD PCP - General Family Medicine 08/05/22 Martha Jenkins MD [address] [place] [address] Warm In Worker Endocrinology 06/22/19 documented as of this encounter
--- OUTSIDE RECORDS SUMMARY | 2024-12-13 08:55 | XMS_ITS | Encounter Summary ---
Author Organization [employer] ([place], [place], [place], [place]) Address [address] [place] [address] Care Team Providers Care Grain Scooper Name Role Phone Seth Fry MD Primary Care Provider Martha Jenkins MD Unavailable Encounter Details Date Type Department Care Team (Late st Contact Info) Description 01/23/2022 Outside Orders [facility] Central Scheduling [address] [place] [address] Martha Jenkins MD [address] [place] [address] Hypercalcemia syndrome (Primary Dx) Social [...] Info) Description 01/16/2025 11:30 AM EDT Appointment [facility] - [facility] [address] [facility] [address] [place] [address] Tom Canales MD [address] [facility] [address] [place] [address] documented as of this encounter Visit Diagnoses Diagnosis Hypercalcemia syndrome- Primary Hypercalcemia documented in this encounter Care Teams Grain Scooper Relationship Specialty Start Date End Date Seth Fry MD PCP - General Family Medicine 08/05/22 Martha Jenkins MD [address] [facility], [place] [phone] Prototype Engineer Manager Endocrinology 06/22/19 documented as of this encounter
--- OUTSIDE RECORDS SUMMARY | 2024-12-13 08:56 | XMS_ITS | Clinical Summary ---
Author Organization [facility] Address [address] [place] [id number] Care Team Providers Care Lead Cargoman Name Role Phone Seth Fry MD Primary [...] (09/11/2022): Added automatically from request for surgery [id number] S/P total thyroidectomy 03/20/2022 Overview (09/11/2022): Added automatically from request for surgery [id number] Encounters Date Type Department Care Team Description 10/05/2024 Prior Authorization [facility] [address] [place] [address] Georgia Perez, Synthroid Approval 10/05/2024 Refill [facility] [address] [place] [address] Georgia Perez DO Postoperative hypothyroidism 09/29/2024 1:48 PM EDT Hospital Encounter [facility] [address] [place] [address] 09/29/2024 1:30 PM EDT Office Visit [facility] [address] [place] [address] Georgia Perez DO Postoperative hypothyroidism (Primary Dx); Papillary thyroid carcinoma; Prediabetes 09/29/2024 Travel 09/22/2024 11:15 AM EDT Lab [facility] [address] [place] [address] Postoperative hypothyroidism; Papillary thyroid carcinoma; Prediabetes; Primary hyperparathyroidism 09/22/2024 Results Follow-Up [facility] [address] [place] [address] Georgia Perez DO 09/22/2024 Travel from Last [...] Description 10/04/2025 2:15 PM EDT Office Visit [facility] [address] [place] [address] Georgia Perez, DO [address] [place] [address] Health Maintenance Due Date Last Done Comments [...] 08/28/2021 COVID-19 Vaccine (8 - Pfizer risk 2023- season) 2024 02/23/2024, 02/09/2023, 02/05/2022, Additional history exists INFLUENZA VACCINE 02/01/2025 02/23/2024, , 02/07/2022 ANNUAL WELLNESS VISIT 08/02/2025 08/02/2024 , 08/02/2024, 07/30/2023, Additional history exists MAMMOGRAM 07/11/2026 07/11/2024, 0310/2023, 07/02/2022, Additional history exists COLONOSCOPY 01/03/2028 07/06/2020 COLORECTAL CANCER SCREENING 01/03/2028 Procedures Procedure Name Priority Date/Time Associated Diagnosis Comments SCANNED - LABS 12/05/2024 SCANNED - LABS 12/05/2024 US THYROID Routine 09/29/2024 1:48 PM EDT [...] 09/15/2024 SCANNED - IMAGING 09/13/2024 SCANNED - MAMMO 07/11/2024 SCANNED - COLONOSCOPY 07/06/2020 from Last 3 Months or Most Recently Relevant to Health Maintenance Results * LABS SCANNED (12/05/2024) Only the most recent of3 resultswithin the time period is included. us Seth Fry MD LAB BLOOD ORDERABLES Fin al Result * US Thyroid (09/29/2024 1:48 PM EDT) Narrative SYSTEMGENERATED, DOCUMENTATION - 09/29/2024 1:48 PM EDT Please see performing physician's note for result. us Georgia Hammond Clarissai DO IMG US ORDERABLES Final R esult [...] - 09/23/2024 7:09 PM EDT Performed at: - [address] [id number] Scoop Operator: Kali Hinson PhD, Phone: [phone] Georgia Perez DO LAB BLOOD ORDERABLES [place] Result [facility] [address] [place] [address], * Thyroglobulin Antibody and Thyroglobulin, YANA or LC/MS-MS (09/22/2024 11:06 AM EDT) [facility] Thyroglobulin Ab <1.0 0.0 - 0.9 IU/mL 09/23/2024 7:09 PM EDT [facility] Comment: Thyroglobulin Antibody measured by Claire Casper Methodology It should be noted that the presence of thyroglobulin antibodies may not be pathogenic nor diagnostic, especially at very low levels. The assay flower grower has found that four percent of individuals without evidence of thyroid disease or autoimmunity will have positive TgAb levels up to 4 IU/mL. Blood Structure of left upper limb / Unknown Venipuncture / Unknown 09/22/2024 11:06 AM EDT 09/22/2024 11:06 AM EDT Narrative [facility] - 09/23/2024 7:09 PM EDT Performed at: [address] [place] [id number] Scoop Operator: Kali Hinson PhD, Phone: [phone] [facility] BLOOD ORDERABLES [place] Result [facility] [address] [place] [address], [place] [phone] * TSH (09/22/2024 11:06 AM EDT) [facility] TSH 0.673 0.270 - 4.200 uIU/mL 09/22/2024 2:42 PM EDT [facility] Blood Venipuncture / Unknown 09/22/2024 11:06 AM EDT 09/22/2024 11:06 AM EDT [facility] BLOOD ORDERABLES [place] Result [facility]
[address] [place] [address], [place] [phone] * (ABNORMAL) T4, Free (09/22/2024 11:06 AM EDT) [facility] Free T4 1.76(H) 0.92 - 1.68 ng/dL 09/22/2024 2:42 PM EDT [facility] Blood Venipuncture / Unknown 09/22/2024 11:06 AM EDT 09/22/2024 11:06 AM EDT [facility] LAB BLOOD ORDERABLES [place] Result Performing Organization Address [facility] de Phone Number [facility]
[address] [place] [address], * (ABNORMAL) Hemoglobin A1c (09/22/2024 11:06 AM EDT) [facility] Hemoglobin A1C 5.90(H) 4.80 - 5.60 % 09/22/2024 2:36 PM EDT [facility] Blood Venipuncture / Unknown 09/22/2024 11:06 AM EDT 09/22/2024 11:06 AM EDT Narrative [facility] - 09/22/2024 2:36 PM EDT Hemoglobin A1C Ranges: Increased Risk for Diabetes 5.7% to 6.4% Diabetes >= 6.5% Diabetic Goal < 7.0% [facility] LAB BLOOD ORDERABLES [place] Result Performing Organization Address [facility] de Phone Number [facility]
[address] [place] [address], * (ABNORMAL) Comprehensive Metabolic Panel (09/22/2024 11:06 AM EDT) [facility] Glucose 88 65 - 99 mg/dL 09/22/2024 2:35 PM EDT [facility] BUN 14 8 - 23 mg/dL 09/22/2024 2:35 PM EDT [facility] Creatinine 1.04(H) 0.57 - 1.00 mg/dL 09/22/2024 2:35 PM EDT [facility] Sodium 138 136 - 145 mmol/L 09/22/2024 2:35 PM [facility] Potassium 4.2 3.5 - 5.2 mmol/L 09/22/2024 2:35 PM [facility] Chloride 101 98 - 107 mmol/L 09/22/2024 2:35 PM [facility] CO2 26.2 22.0 - 29.0 mmol/L 09/22/2024 2:35 PM [facility] Calcium 9.7 8.6 - 10.5 mg/dL 09/22/2024 2:35 PM [facility] Total Protein 7.4 6.0 - 8.5 g/dL 09/22/2024 2:35 PM [facility] Albumin 4.2 3.5 - 5.2 g/dL 09/22/2024 2:35 PM [facility] ALT (SGPT) 38(H) 1 - 33 U/L 09/22/2024 2:35 PM [facility] AST (SGOT) 31 1 - 32 U/L 09/22/2024 2:35 PM [facility] Alkaline Phosphatase 70 39 - 117 U/L 09/22/2024 2:35 PM [facility] Total Bilirubin 0.6 0.0 - 1.2 mg/dL 09/22/2024 2:35 PM [facility] Globulin 3.2 gm/dL 09/22/2024 2:35 PM [facility] A/G Ratio 1.3 g/dL 09/22/2024 2:35 PM [facility] BUN/Creatinine Ratio 13.5 7.0 - 25.0 09/22/2024 2:35 PM [facility] Anion Gap 10.8 5.0 - 15.0 mmol/L 09/22/2024 2:35 PM [facility] eGFR 57.6(L) >60.0 mL/min/1.7 3 09/22/2024 2:35 PM EDT [facility] Blood Venipuncture / Unknown 09/22/2024 11:06 AM EDT 09/22/2024 11:06 AM EDT Narrative [facility] - 09/22/2024 2:35 PM EDT GFR [...] DO LAB BLOOD ORDERABLES [place] Result [facility]
[address] [place] [address], * IMAGING SCANNED (09/13/2024) Anatomical Region Laterality [...] Most Recently Relevant to Health Maintenance Insurance [facility] Medicare Advantage [employer] PPO Care Teams Lead Cargoman Relationship Specialty Start Date End Date Seth Fry MD [address] [facility] [facility] [address] PCP - General Family Medicine 08/29/21
--- OUTSIDE RECORDS SUMMARY | 2024-12-13 08:56 | XMS_ITS | Encounter Summary ---
Author Organization [facility] ystem Address [address] [place] [address] Care Team Providers Care Teacher Associate Name Role Phone Seth Fry MD Primary Care Provider + Encounter Details Date Type Department Care Team (Late st Contact Info) Description 09/22/2024 Results Follow-Up [facility] [address] [place] [address] Georgia Perez DO [address] [place] [address] Social History Tobacco Use Types [...] Description 10/04/2025 2:15 PM EDT Office Visit [facility] [address] [place] [address] Georgia Perez, DO [address] [address] documented as of this encounter Visit Diagnoses Not on filedocumented in this encounter Care Teams Teacher Associate Relationship Specialty Start Date End Date Seth Fry MD [address] [place] [address] PCP - General Family Medicine 08/29/21 documented as of this encounter
--- NOTE | 2024-12-13 08:59 | XR_ITS ---
FINAL REPORT CLINICAL HISTORY: cml COMPARISON: 06/21/2024 FINDINGS: PA and lateral views of the chest were obtained. The cardiac and mediastinal silhouettes are within normal limits. Again seen is a right lung nodule which appears stable when compared to the prior exam. Bilateral lower lobe opacities are present, as well as right greater than left pleural effusions, also stable. There is no pneumothorax. No acute osseous abnormality is identified. IMPRESSION: Right lung nodule noted on the prior chest x-ray of 06/21/2024 remained stable. Bilateral lower lobe opacities, right greater than left pleural effusions also remained stable in appearance. Reviewed, Interpreted and Dictated by Kylah Nunez MD Transcribed by Minna Myles Authenticated and [facility]
== END 2024-12-13 23:59 | disposition home or self-care (01) ==
LOC: RAD 08:54
PROVIDERS: PCP Family Medicine; Visit Provider Internal Medicine Medical Oncology
DX: J90 Pleural effusion, not elsewhere classified (principal); R91.1 Solitary pulmonary nodule; R91.8 Other nonspecific abnormal finding of lung field; C92.10 Chronic myeloid leukemia, BCR/ABL-positive, not having achieved remission
CPT/HCPCS: 71046

== ENCOUNTER 2024-12-15 09:48 | Outpatient (CLI) | payer MEDICARE, SELFPAY ==
--- OUTSIDE RECORDS SUMMARY | 2023-03-31 12:06 | XMS_ITS | Encounter Summary ---
Author Organization [facility] yste Address [address] [place] [address] Care Team Providers Care Chief Information Officer Name Role Phone Seth Fry MD Primary Care Provider + Reason for Visit * Diagnostic Imaging (Routine) - Closed Specialty Diagnoses / Procedures Referred By Contac t Referred To Contact Radiology Diagnoses Papillary thyroid carcinoma Procedures US Thyroid Georgia Perez, DO [address] [place] [address] Phone: tel: fax: Referral ID Status Reason Start Date Expiration Date Visits Re quested Visits Authorized [id number] Closed 03/31/2023 03/30/2024 1 1 Encounter Details Date Type Department Care Team (Late st Contact Info) Description 03/31/2023 11:06 AM EST Hospital Encounter [facility] ENDOCRINOLOGY [address] [facility] [address] [place] [phone] Social History Tobacco Use Types Packs/Day Years [...] Description 10/04/2025 2:15 PM EDT Office Visit [facility] ENDOCR[facility]Y [address] [place] [address] Georgia Perez DO [address] [facility] [address] [place] [address] documented as of this encounter [...] on filedocumented in this encounter Care Teams Chief Information Officer Relationship Specialty Start Date End Date Seth Fry MD [address] [facility] [place] [address] PCP - General Family Medicine 08/29/21 documented as of this encounter
--- OUTSIDE RECORDS SUMMARY | 2024-09-29 13:48 | XMS_ITS | Encounter Summary ---
Author Organization [facility] yste Address [address] [place] [address] Care Team Providers Care Gasoline Truck Operator Name Role Phone Seth Fry MD Primary Care Provider + Reason for Visit * Diagnostic Imaging (Routine) - Closed Specialty Diagnoses / Procedures Referred By Contac t Referred To Contact Radiology Diagnoses Papillary thyroid carcinoma Procedures US Thyroid Georgia Perez, DO [address] [place] [address] Phone: tel: fax: Referral ID Status Reason Start Date Expiration Date Visits Re quested Visits Authorized [id number] Closed 09/29/2024 12/29/2025 1 1 Encounter Details Date Type Department Care Team (Late st Contact Info) Description 09/29/2024 1:48 PM EDT Hospital Encounter [facility] [address] [place] [phone] Social History Tobacco Use Types Packs/Day Years [...] Description 10/04/2025 2:15 PM EDT Office Visit [facility] [address] [facility] [address] [place] [address] Georgia Perez, [address] [facility] [address] [place], [place] [phone] documented as of this encounter Procedures Procedure [...] on filedocumented in this encounter Care Teams Gasoline Truck Operator Relationship Specialty Start Date End Date Seth Fry MD [address] [place] [address] PCP - General Family Medicine 08/29/21 documented as of this encounter
--- OUTSIDE RECORDS SUMMARY | 2024-12-15 09:50 | XMS_ITS | Clinical Summary ---
Author Organization [employer] ([place], [place], [place], [place]) Address [address] [place] [address] Care Team Providers Care Warehouse Stock Clerk Name Role Phone Seth Fry MD Primary Care Provider [phone] Martha Jenkins MD Unavailable Allergies Active Allergy [...] Cancer Staging:Clinical:Stage IA(cT1c, cN0, cM0, G2, ER+, AL+, HER2-) - Unsigned Encounter for general adult medical examination without abnormal findings 07/09/2022 History of thyroid cancer 04/22/2022 History of breast cancer 04/22/2022 Primary hyperparathyroidism 03/20/2022 Overview (07/09/2022): Added automatically from request for surgery [id number] S/P total thyroidectomy 03/20/2022 Overview (07/09/2022): Added automatically from request for surgery [id number] Hyperlipidemia 03/20/2022 Osteopenia 03/20/2022 CML (chronic myelocytic [...] Date Franck rded Speak language other than Faroese at home Not on file 05/22/2023 Want [...] Info) Description 01/16/2025 11:30 AM EDT Appointment [facility] - [facility] [address] [place] [address] Tom Canales MD [email or web address] [place] [address] Health Maintenance Due Date Last [...] Counseling and Screening (12+) 01/10/2025 01/11/2024 Insurance [facility] [place] [address] Care Teams Warehouse Stock Clerk Relationship Specialty Start Date End Date Seth Fry MD PCP - General Family Medicine 08/05/22 Martha Jenkins MD [address] [place], [place] [phone] Activities Specialist Endocrinology 06/22/19
--- OUTSIDE RECORDS SUMMARY | 2024-12-15 09:50 | XMS_ITS | Encounter Summary ---
Author Organization [employer] ([place], [place], [place], [place]) Address [address] [place] [address] Care Team Providers Care Stations Superintendent Name Role Phone Seth rFy MD Primary Care Provider [phone] Martha Jenkins MD Unavailable Encounter Details Date Type Department Care Team (Late Contact Info) Description 06/25/2022 Telephone [facility] [address] [place] [address] Nalini Fitzgerald, AUTHORIZATION REPRESENTATIVE [address] [place] [phone] Social History Tobacco Use Types Packs/Day Years [...] Info) Description 01/16/2025 11:30 AM EDT Appointment [facility] [address] [place] [address] Tom Canales MD [address] [place] [address] documented as of this encounter Visit Diagnoses Not on filedocumented in this encounter Care Teams Stations Superintendent Relationship Specialty Start Date End Date Seth Fry MD PCP - General Family Medicine 08/05/22 Martha Jenkins MD [address] [facility] [place], [place] [phone] Letterset Press Set Up Operator Endocrinology 06/22/19 documented as of this encounter
--- OUTSIDE RECORDS SUMMARY | 2024-12-15 09:50 | XMS_ITS | Encounter Summary ---
Author Organization [facility] ystem Address [address] [place] [address] Care Team Providers Care Kettle Loader Name Role Phone Seth Fry MD Primary Care Provider + Encounter Details Date Type Department Care Team (Late st Contact Info) Description 09/22/2024 Results Follow-Up [facility] [address] [place] [address] Georgia Perez DO [address] [place] [address] Social History Tobacco Use Types [...] Description 10/04/2025 2:15 PM EDT Office Visit [facility] [address] [place] [address] Georgia Perez, DO [address] [address] documented as of this encounter Visit Diagnoses Not on filedocumented in this encounter Care Teams Kettle Loader Relationship Specialty Start Date End Date Seth Fry MD [address] [place] [address] PCP - General Family Medicine 08/29/21 documented as of this encounter
--- OUTSIDE RECORDS SUMMARY | 2024-12-15 09:50 | XMS_ITS | Encounter Summary ---
Author Organization [employer] ([place], [place], [place], [place]) Address [address] [place] [address] Care Team Providers Care Loss Prevention/Safety District Manager Name Role Phone Seth Fry MD Primary Care Provider Martha Jenkins MD Unavailable Reason for Visit * Reason Comments Medication Refill Encounter Details Date Type Department Care Team (Late st Contact Info) Description 08/18/2023 Refill [facility] Endocrinology [address] [place] [address] [address] Martha Jenkins MD [address] [place] [address] Malignant neoplasm of thyroid gland [...] Date Franck rded Speak language other than American at home Not on file 05/22/2023 Want [...] Info) Description 01/16/2025 11:30 AM EDT Appointment [facility] - [address] [place] [address] Tom Canales MD [address] [place] [address] documented as of this encounter Visit Diagnoses Diagnosis Malignant neoplasm of thyroid gland (HCC) Malignant neoplasm of thyroid gland documented in this encounter Care Teams Loss Prevention/Safety District Manager Relationship Specialty Start Date End Date Seth Fry MD PCP - General Family Medicine 08/05/22 Martha Jenkins MD [address] [place] [address] [facility] Endocrinology 06/22/19 documented as of this encounter
--- OUTSIDE RECORDS SUMMARY | 2024-12-15 09:50 | XMS_ITS | Referral Summary ---
Author Organization [employer] ([place], [place], [place]) Address [address] [place] [address] Care Team Providers Care Data Entry Supervisor Name Role Phone Seth Fry MD Primary Care Provider [phone] Martha Jenkins MD Unavailable Allergies Active Allergy [...] Cancer Staging:Clinical:Stage IA(cT1c, cN0, cM0, G2, ER+, IA+, HER2-) - Unsigned Encounter for general adult medical examination without abnormal findings 07/09/2022 History of thyroid cancer 04/22/2022 History of breast cancer 04/22/2022 Primary hyperparathyroidism 03/20/2022 Overview (07/09/2022): Added automatically from request for surgery [id number] S/P total thyroidectomy 03/20/2022 Overview (07/09/2022): Added automatically from request for surgery [id number] Hyperlipidemia 03/20/2022 Osteopenia 03/20/2022 CML (chronic myelocytic [...] Date Franck rded Speak language other than Irish at home Not on file 05/22/2023 Want [...] Info) Description 01/16/2025 11:30 AM EDT Appointment [facility] [address] [place] [address] Tom Canales MD [address] [place] [address] Insurance [facility] MEDICARE ADVANTAGE Care Teams Data Entry Supervisor Relationship Specialty Start Date End Date Seth Fry MD PCP - General Family Medicine 08/05/22 Martha Jenkins MD [address] [place], [place] [address] [employer] Endocrinology 06/22/19
--- OUTSIDE RECORDS SUMMARY | 2024-12-15 09:50 | XMS_ITS | Clinical Summary ---
Author Organization [facility] Address [address] [place] [address] Care Team Providers Care Casing Machine Operator Name Role Phone Seth Fry MD Primary Care Provider [phone] Allergies Active Allergy Reactions Criticality Noted Date [...] (03/20/2022): Added automatically from request for surgery [id number] CML (chronic myelocytic leukemia) 03/20/2022 Osteopenia 03/20/2022 Hyperlipidemia 03/20/2022 Papillary thyroid carcinoma 03/20/2022 Resolved Problems Problem Noted Date Diagnosed Date Resolved Date Primary hyperparathyroidism 03/20/2022 11/12/2022 Overview (03/20/2022): Added automatically from request for surgery [id number] Family History Medical History Relation Name Comments [...] drink first t stefan in the morning (EYE-RENTAL SALES AGENT) to steady your nerves or to get [...] PPSV23) 12/03/2018 10/08/2018 [facility]-Depression Screening 11/12/2023 11/11/2022 [id number] Vaccine ( season) 2024 02/05/2022, 12/02/2021, 12/27/2020, [...] patient's age to complete this topic Insurance [facility] [place] [address] Advance Directives * Full Code (Latest Code Status on File) Date Activated Date Inactivated Comments 05/06/2022 1:24 PM 05/07/2022 11:04 AM Question Answer Comments Patient has decision-making capacity? Yes Care Teams Casing Machine Operator Relationship Specialty Start Date End Date Seth Fry MD [address] [place] [address] [place] [address] PCP - General 09/14/20
--- OUTSIDE RECORDS SUMMARY | 2024-12-15 09:50 | XMS_ITS | Clinical Summary ---
Author Organization [facility] Address [address] [place] [id number] Care Team Providers Care Art Critic Name Role Phone Seth Fry MD Primary [...] (09/11/2022): Added automatically from request for surgery [id number] S/P total thyroidectomy 03/20/2022 Overview (09/11/2022): Added automatically from request for surgery [id number] Encounters Date Type Department Care Team Description 10/05/2024 Prior Authorization [facility] [address] [place] [address] Georgia Perez, Synthroid Approval 10/05/2024 Refill [facility] [address] [place] [address] Georgia Perez DO Postoperative hypothyroidism 09/29/2024 1:48 PM EDT Hospital Encounter [facility] [address] [place] [address] 09/29/2024 1:30 PM EDT Office Visit [facility] [address] [place] [address] Georgia Perez DO Postoperative hypothyroidism (Primary Dx); Papillary thyroid carcinoma; Prediabetes 09/29/2024 Travel 09/22/2024 11:15 AM EDT Lab [facility] [address] [place] [address] Postoperative hypothyroidism; Papillary thyroid carcinoma; Prediabetes; Primary hyperparathyroidism 09/22/2024 Results Follow-Up [facility] [address] [place] [address] Georgia Perez DO 09/22/2024 Travel from Last [...] Office Visit [facility] [address] [place] [address] Georgia Perez, DO [address] [place] [address] Health Maintenance Due Date Last Done Comments [...] Priority Date/Time Associated Diagnosis Comments SCANNED - IMAGING 12/13/2024 SCANNED - LABS 12/05/2024 SCANNED - LABS 12/05/2024 SCANNED - LABS [...] hypothyroidism SCANNED - LABS 09/15/2024 SCANNED - MAMMO 07/11/2024 SCANNED - COLONOSCOPY 07/06/2020 from Last 3 Months or Most Recently Relevant to Health Maintenance Results * IMAGING SCANNED (12/13/2024) Anatomical Region Laterality Modality Radiographic Yana ging Seth Fry MD [facility] DIAGNOSTIC IMAGING O RDERABLES Final Result * LABS SCANNED (12/05/2024) Only the most recent of4 resultswithin the time period is included. Seth Fry MD LAB BLOOD ORDERABLES Fin al Result * US Thyroid (09/29/2024 1:48 PM EDT) Narrative SYSTEMGENERATED, DOCUMENTATION - 09/29/2024 1:48 PM EDT Please see performing physician's note for result. Georgia Perez DO [facility] US ORDERABLES Final R esult * (ABNORMAL) [...] - 09/23/2024 7:09 PM EDT Performed at: [address] [place] [id number] Debug Technician: Kali Hinson PhD, Phone: [phone] Georgia Perez DO LAB BLOOD ORDERABLES [place] l Result [facility] [address] [place] [address], * Thyroglobulin Antibody and Thyroglobulin, YANA or LC/MS-MS (09/22/2024 11:06 AM EDT) Thyroglobulin Ab <1.0 0.0 - 0.9 IU/mL 09/23/2024 7:09 PM EDT [facility] Comment: Thyroglobulin Antibody measured by [employer] Methodology It should be noted that the presence of thyroglobulin antibodies may not be pathogenic nor diagnostic, especially at very low levels. The assay order manager has found that four percent of individuals without evidence of thyroid disease or autoimmunity will have positive TgAb levels up to 4 IU/mL. Blood Structure of left upper limb / Unknown Venipuncture / Unknown 09/22/2024 11:06 AM EDT 09/22/2024 11:06 AM EDT Narrative [facility] - 09/23/2024 7:09 PM EDT Performed at: - [address] [id number] Debug Technician: Kali Hinson PhD, Phone: [phone] Georgia Hammond [facility] LAB BLOOD ORDERABLES [place] l Result Performing Organization Address City/[facility]/ZIP Co de Phone Number [facility] [address] [place] [address], * TSH (09/22/2024 11:06 AM EDT) Pathologist [facility] TSH 0.673 0.270 - 4.200 uIU/mL 09/22/2024 2:42 PM EDT [facility] Blood Venipuncture / Unknown 09/22/2024 11:06 AM EDT 09/22/2024 11:06 AM EDT Georgia Hammond [facility] LAB BLOOD ORDERABLES [place] l Result [facility]
[address] [place] [address], * (ABNORMAL) T4, Free (09/22/2024 11:06 AM EDT) [facility] Free T4 1.76(H) 0.92 - 1.68 ng/dL 09/22/2024 2:42 PM EDT [facility] Blood Venipuncture / Unknown 09/22/2024 11:06 AM EDT 09/22/2024 11:06 AM EDT Georgia [facility] LAB BLOOD ORDERABLES Belem l Result Performing Organization Address [facility] Co de Phone Number [facility]
[address] [place] [address], * (ABNORMAL) Hemoglobin A1c (09/22/2024 11:06 AM EDT) [facility] Hemoglobin A1C 5.90(H) 4.80 - 5.60 % 09/22/2024 2:36 PM EDT [facility] Blood Venipuncture / Unknown 09/22/2024 11:06 AM EDT 09/22/2024 11:06 AM EDT Narrative [facility] - 09/22/2024 2:36 PM EDT Hemoglobin A1C Ranges: Increased Risk for Diabetes 5.7% to 6.4% Diabetes >= 6.5% Diabetic Goal < 7.0% [facility] LAB BLOOD ORDERABLES [place] l Result Performing Organization Address City/[facility]/ZIP Co de Phone Number [facility]
[address] [place] [address], * (ABNORMAL) Comprehensive Metabolic Panel (09/22/2024 11:06 AM EDT) [facility] Glucose 88 65 - 99 mg/dL 09/22/2024 2:35 PM EDT [facility] BUN 14 8 - 23 mg/dL 09/22/2024 2:35 PM [facility] Creatinine 1.04(H) 0.57 - 1.00 mg/dL 09/22/2024 2:35 PM [facility] Sodium 138 136 - 145 mmol/L 09/22/2024 2:35 PM [facility] Potassium 4.2 3.5 - 5.2 mmol/L 09/22/2024 2:35 PM [facility] Chloride 101 98 - 107 mmol/L 09/22/2024 2:35 PM [facility] CO2 26.2 22.0 - 29.0 mmol/L 09/22/2024 2:35 PM [facility] Calcium 9.7 8.6 - 10.5 mg/dL 09/22/2024 2:35 PM [facility] Total Protein 7.4 6.0 - 8.5 g/dL 09/22/2024 2:35 PM [facility] Albumin 4.2 3.5 - 5.2 g/dL 09/22/2024 2:35 PM [facility] ALT (SGPT) 38(H) 1 - 33 U/L 09/22/2024 2:35 PM [facility] AST (SGOT) 31 1 - 32 U/L 09/22/2024 2:35 PM [facility] Alkaline Phosphatase 70 39 - 117 U/L 09/22/2024 2:35 PM [facility] Total Bilirubin 0.6 0.0 - 1.2 mg/dL 09/22/2024 2:35 PM [facility] Globulin 3.2 gm/dL 09/22/2024 2:35 PM [facility] A/G Ratio 1.3 g/dL 09/22/2024 2:35 PM [facility] BUN/Creatinine Ratio 13.5 7.0 - 25.0 09/22/2024 2:35 PM [facility] Anion Gap 10.8 5.0 - 15.0 mmol/L 09/22/2024 2:35 PM EDT [facility] eGFR 57.6(L) >60.0 mL/min/1.7 3 09/22/2024 2:35 PM EDT [facility] Blood Venipuncture / Unknown 09/22/2024 11:06 AM EDT 09/22/2024 11:06 AM EDT Narrative [facility] - 09/22/2024 2:35 PM EDT GFR [...] DO LAB BLOOD ORDERABLES [place] l Result [facility]
[address] [place] [address], * MAMMO Scan (07/11/2024) Anatomical Region Laterality Modality Other Seth Fry MD CHART REVIEW TABS Fin al Result * Colonoscopy, Scan (07/06/2020) Seth Fry MD CHART REVIEW TABS Fin al Result from Last 3 Months or Most Recently Relevant to Health Maintenance Insurance [facility] Medicare Advantage GROUP PPO Care Teams Art Critic Relationship Specialty Start Date End Date Seth Fry MD [address] [facility] [address] PCP - General Family Medicine 08/29/21
--- OUTSIDE RECORDS SUMMARY | 2024-12-15 09:50 | XMS_ITS | Encounter Summary ---
Author Organization [employer] ([place], [place], [place], [place]) Address [address] [place] [address] Care Team Providers Care Six Sigma Black Trainer Name Role Phone Seth Fry MD Primary Care Provider [phone] Martha Jenkins MD Unavailable Encounter Details Date Type Department Care Team (Late st Contact Info) Description 01/23/2022 Outside Orders [facility] Central Scheduling [address] [place] [address] Martha Jenkins MD [address] [place] [address] Hypercalcemia syndrome (Primary Dx) Social [...] Info) Description 01/16/2025 11:30 AM EDT Appointment [facility] [address] [facility] [address] [place] [address] Tom Canales MD [address] [facility] [address] [place] [address] documented as of this encounter Visit Diagnoses Diagnosis Hypercalcemia syndrome- Primary Hypercalcemia documented in this encounter Care Teams Six Sigma Black Trainer Relationship Specialty Start Date End Date Seth rFy MD PCP - General Family Medicine 08/05/22 Martha Jenkins MD [address] [facility], [place] [id number] [facility] Endocrinology 06/22/19 documented as of this encounter
--- NOTE | 2024-12-15 09:57 | ECG_ITS ---
APPROVED REPORT Exam: Resting ECG HR:60 bpm ECG Measurements Heart Rate 60 AXES LA 169 P 71 QRSd 79 QRS 76 QT 383 T 39 QTc 384 Conclusion SINUS RHYTHM WITH MARKED SINUS ARRHYTHMIA LOW QRS VOLTAGE IN PRECORDIAL LEADS [QRS DEFLECTION < 1.0 mV IN CHEST LEADS] POSSIBLE ANTERIOR MYOCARDIAL INFARCTION , PROBABLY OLD [30 ms Q WAVE IN V3/V4, OR R < 0.2 mV IN V4] BORDERLINE ECG UNCONFIRMED REPORT Electronically signed by : Seth Negron MD 12/16/2024 07:40:59
[2024-12-15 11:28] LABS: Magnesium 1.7 mg/dl (1.6-2.3)
[2024-12-15 11:56] LABS: Thyroid Stimulating Hormone 0.47 uIU/mL (0.465-4.68)
== END 2024-12-15 23:59 | disposition home or self-care (01) ==
LOC: LAB 09:48
PROVIDERS: PCP Family Medicine; Visit Provider Internal Medicine Medical Oncology
DX: C92.10 Chronic myeloid leukemia, BCR/ABL-positive, not having achieved remission (principal)
CPT/HCPCS: 36415; 83735; 84443; 93005

== ENCOUNTER 2025-03-06 09:24 | Outpatient (CLI) | payer MEDICARE, SELFPAY ==
--- OUTSIDE RECORDS SUMMARY | 2023-03-31 11:06 | XMS_ITS | Encounter Summary ---
Author Organization [facility] yste Address [address] [place] [address] Care Team Providers Care Loss Prevention Operations Manager Name Role Phone Seth Fry MD Primary Care Provider + Reason for Visit * Diagnostic Imaging (Routine) - Closed Specialty Diagnoses / Procedures Referred By Contac t Referred To Contact Radiology Diagnoses Papillary thyroid carcinoma Procedures US Thyroid Georgia Perez, DO [address] [place] [address] Phone: tel: fax: Referral ID Status Reason Start Date Expiration Date Visits Re quested Visits Authorized [id number] Closed 03/31/2023 03/30/2024 1 1 Encounter Details Date Type Department Care Team (Late st Contact Info) Description 03/31/2023 11:06 AM EST Hospital Encounter [facility] ENDOCRINOLOGY [address] [facility] [address] [place] [phone] Social History Tobacco Use Types Packs/Day Years [...] Description 10/04/2025 2:15 PM EDT Office Visit [facility] ENDOCR[facility] [address] [place] [address] Georgia Perez DO [address] [facility] [address] [place] [address] documented as of this encounter [...] on filedocumented in this encounter Care Teams Loss Prevention Operations Manager Relationship Specialty Start Date End Date Seth Fry MD [address] [facility] [place] [address] PCP - General Family Medicine 08/29/21 documented as of this encounter
--- OUTSIDE RECORDS SUMMARY | 2024-09-29 12:48 | XMS_ITS | Encounter Summary ---
Author Organization [facility] yste Address [address] [place] [address] Care Team Providers Care Patch Worker Name Role Phone Seth Fry MD Primary Care Provider + Reason for Visit * Diagnostic Imaging (Routine) - Closed Specialty Diagnoses / Procedures Referred By Contac t Referred To Contact Radiology Diagnoses Papillary thyroid carcinoma Procedures US Thyroid Georgia Perez, DO [address] [place] [address] Phone: tel: fax: Referral ID Status Reason Start Date Expiration Date Visits Re quested Visits Authorized [id number] Closed 09/29/2024 12/29/2025 1 1 Encounter Details Date Type Department Care Team (Late st Contact Info) Description 09/29/2024 1:48 PM EDT Hospital Encounter [facility] ENDOCRINOLOGY [address] [place] [phone] Social History Tobacco Use Types Packs/Day Years [...] Office Visit [facility] ENDOCRINOLOGY [address] [facility] [address] [place] [address] Georgia Perez, [address] [facility] [address] [place], [place] [phone] documented as of this encounter Procedures Procedure [...] on filedocumented in this encounter Care Teams Patch Worker Relationship Specialty Start Date End Date Seth Fry MD [address] [place] [id number] PCP - General Family Medicine 08/29/21 documented as of this encounter
--- OUTSIDE RECORDS SUMMARY | 2025-03-06 09:28 | XMS_ITS | Encounter Summary ---
Author Organization [facility] Address [address] [place] [address] Care Team Providers Care Log Marker Name Role Phone Seth Fry MD Primary Care Provider + Encounter Details Date Type Department Care Team (Late st Contact Info) Description 09/22/2024 Results Follow-Up [facility] [address] [place] [address] Georgia Perez DO [address] [place] [address] Social History Tobacco Use Types [...] Description 10/04/2025 2:15 PM EDT Office Visit [facility] [address] [place] [address] Georgia Perez, DO [address] [address] documented as of this encounter Visit Diagnoses Not on filedocumented in this encounter Care Teams Log Marker Relationship Specialty Start Date End Date Seth Fry MD [address] [place] [address] PCP - General Family Medicine 08/29/21 documented as of this encounter
--- OUTSIDE RECORDS SUMMARY | 2025-03-06 09:28 | XMS_ITS | Clinical Summary ---
Author Organization [facility] Address [address] [place] [id number] Care Team Providers Care Machine Repairer Maintenance Name Role Phone Seth Fry MD Primary [...] (09/11/2022): Added automatically from request for surgery [id number] S/P total thyroidectomy 03/20/2022 Overview (09/11/2022): Added automatically from request for surgery [id number] Immunizations Immunization Administration Dates Next Due COVID-19 ([employer]) Purple Cap Monovalent 08/26/20 21,07/21/2020,06/27/2020 Covid-19 (Pfizer) Lawrence Cap Monovalent 12/02/2021 [...] Office Visit [facility] [address] [address] PacGeorgia leon, [address] [facility] [address] [place] [address] Health Maintenance Due Date Last Done Comments DXA SCAN 1955 LIPID PANEL 1953 TDAP/TD VACCINES (1 - Tdap) 01/20/1972 ZOSTER VACCINE (1 of 2) 01/20/1972 COLOGUARD 1998 COLON CANCER SCREENING 5 YEA R SIGMOIDOSCOPY 1998 CT COLONOGRAPHY 1998 FECAL OCCULT BLOOD TEST 1998 FIT Testing (1 year) 1998 Pneumococcal Vaccine 50+ (2 of 2 - PPSV23, PCV20, or PCV21) 12/03/2018 10/08/2018 HEPATITIS C SCREENING 08/28/2021 INFLUENZA VACCINE 12/02/2024 02/23/2024, , 02/07/2022 COVID-19 Vaccine (8 - Pfizer risk season) 2025 02/23/2024, 02/09/2023, 02/05/2022, Additional history exists ANNUAL WELLNESS VISIT 08/02/2025 08/02/2024 , 08/02/2024, 07/30/2023, Additional history exists MAMMOGRAM 07/11/2026 07/13/2024, 07/02, 07/08/2023, Additional history exists COLONOSCOPY 01/03/2028 07/06/2020 COLORECTAL CANCER SCREENING 01/03/2028 Procedures Procedure Name Priority Date/Time Associated Diagnosis Comments SCANNED EKG 12/15/2024 SCANNED - LABS 12/15/2024 SCANNED - IMAGING 12/13/2024 SCANNED - LABS 12/05/2024 SCANNED - LABS 12/05/2024 SCANNED - LABS 12/05/2024 SCANNED - MAMMO 07/11/2024 SCANNED - COLONOSCOPY 07/06/2020 from Last 3 Months or Most Recently Relevant to Health Maintenance Results * ECG Scan (12/15/2024) us Seth Fry MD ECG ORDERABLES Final Re sult * LABS SCANNED (12/15/2024) Only the most recent of4 resultswithin the time period is included. Result [facility] Seth Fry MD LAB BLOOD ORDERABLES Fin al Result * IMAGING SCANNED (12/13/2024) Anatomical Region Laterality Modality Radiographic Crystal ging Result [facility] Seth Fry MD IMG DIAGNOSTIC IMAGING O RDERABLES Final Result * MAMMO Scan (07/11/2024) Anatomical Region Laterality Modality Other Result [facility] Seth Fry MD CHART REVIEW TABS Fin al Result * Colonoscopy, Scan (07/06/2020) Result [facility] Seth Fry MD CHART REVIEW TABS Fin al Result from Last 3 Months or Most Recently Relevant to Health Maintenance Insurance [facility] Medicare Advantage GROUP PPO Care Teams Machine Repairer Maintenance Relationship Specialty Start Date End Date Seth Fry MD [address] [place] [address] PCP - General Family Medicine 08/29/21
[2025-03-06 09:49] LABS: Hematocrit 42.5 % (37.0-47.0); Hemoglobin 13.7 g/dL (12.2-16.2); Immature Granulocytes % 0.7 %; Mean Corpuscular HGB Conc 32.2 g/dL (31.8-35.4); Mean Corpuscular Hemoglobin 29.4 pg (27.0-31.2); Mean Corpuscular Volume 91.2 fl (81-99); Nucleated Red Blood Cells % 0 %; Platelet Count 248 K/mm3 (142-424); Red Blood Count 4.66 M/mm3 (4.20-5.40); Red Cell Distribution Width-SD 49.3 fL; White Blood Count 8.8 K/mm3 (4.8-10.8)
[2025-03-06 10:32] LABS: Alanine Aminotransferase 36 U/L (12-78); Albumin Level 4.0 g/dl (3.5-5.0); Albumin/Globulin Ratio 1.3 (1.1-1.8); Anion Gap 10.3 mEq/L (5-15); Aspartate Amino Transferase 28 U/L (14-36); Blood Urea Nitrogen 26 mg/dl (7-17); Calcium 8.7 mg/dl (8.4-10.2); Carbon Dioxide 26 mmol/L (22.0-30.0); Chloride 103 mmol/L (98-107); Creatinine,Serum 1.10 mg/dl (0.52-1.04); Estimated Glomerular Filt Rate 49 ml/min (>60); GFR (African American) 59 ML/MIN (>60); Globulin 3.2 g/dL (1.3-3.2); Glucose 97 mg/dl (74-100); Potassium 4.3 mmoL/L (3.5-5.1); Sodium 135 mmol/L (136-145); Total Protein,Serum 7.2 g/dl (6.3-8.2)
[2025-03-06 12:04] LABS: Alkaline Phosphatase 70 U/L (38-126); Bilirubin,Total 1.1 mg/dl (0.2-1.3)
== END 2025-03-06 23:59 | disposition home or self-care (01) ==
LOC: LAB 09:24
PROVIDERS: PCP Family Medicine; Visit Provider Internal Medicine Medical Oncology
DX: C92.10 Chronic myeloid leukemia, BCR/ABL-positive, not having achieved remission (principal)
CPT/HCPCS: 36415; 80053; 81206; 85025

== ENCOUNTER 2025-03-13 10:12 | Outpatient (CLI) | payer MEDICARE, SELFPAY ==
--- OUTSIDE RECORDS SUMMARY | 2023-03-31 11:06 | XMS_ITS | Encounter Summary ---
Author Organization [facility] yste Address [address] [place] [place] [address] Care Team Providers Care Balance Assembler Name Role Phone Seth Fry MD Primary Care Provider + Reason for Visit * Diagnostic Imaging (Routine) - Closed Specialty Diagnoses / Procedures Referred By Contac t Referred To Contact Radiology Diagnoses Papillary thyroid carcinoma Procedures US Thyroid Georgia Perez, DO [address] [place] [address] Phone: tel: fax: Referral ID Status Reason Start Date Expiration Date Visits Re quested Visits Authorized [id number] Closed 03/31/2023 03/30/2024 1 1 Encounter Details Date Type Department Care Team (Late st Contact Info) Description 03/31/2023 11:06 AM EST Hospital Encounter [facility] ENDOCRINOLOGY [address] [facility] [address] [place] [id number] Social History Tobacco Use Types Packs/Day Years Used Date Smoking Tobacco: Never Passive Smoke Exposure: Never Smokeless Tobacco: Never Alcohol Use Standard Drinks/Week Comments Never 0 (1 standard drink = 0.6 oz pur e alcohol) PHQ-2 Answer Date Recorded Retired PHQ-9: Brief Depression Severity Measure Score 0 04/22/2022 PHQ-2 Answer Date Recorded Patient Health Questionnaire-2 Score 0 08/02/2024 Comments Unknown Sex and Gender Information Value Date Recorded Sex Assigned at Female 07/31/2024 3:42 PM EDT Legal Sex Female 11:27 AM EDT Gender Identity Not on file Sexual Orientation Not on file documented as of this encounter Functional Status documented as of this encounter Plan of Treatment Upcoming Encounters Date Type Department Care Team (Late st Contact Info) Description 10/04/2025 2:15 PM EDT Office Visit [facility] ENDOCRINOLOGY [address] [place] [address] Georgia Perez DO [address] [facility] [address] [place] [address] documented as of this encounter Procedures Procedure Name Priority Date/Time Associated Diagnosis Comments US THYROID Routine 03/31/2023 11:06 AM EST Papillary thyroid carcinoma documented in this encounter Results * US Thyroid (03/31/2023 11:06 AM EST) Narrative SYSTEMGENERATED, DOCUMENTATION - 03/31/2023 11:06 AM EST Please see performing physician's note for result. us Georgia Perez DO IMG US ORDERABLES Final R esult documented in this encounter Visit Diagnoses Not on filedocumented in this encounter Care Teams Balance Assembler Relationship Specialty Start Date End Date Seth Fry MD [address] [facility] [place] [address] PCP - General Family Medicine 08/29/21 documented as of this encounter
--- OUTSIDE RECORDS SUMMARY | 2024-09-29 12:48 | XMS_ITS | Encounter Summary ---
Author Organization [facility] yste Address [address] [place] [address] Care Team Providers Care Drafting Technician Name Role Phone Seth Fry MD Primary Care Provider + Reason for Visit * Diagnostic Imaging (Routine) - Closed Specialty Diagnoses / Procedures Referred By Contac t Referred To Contact Radiology Diagnoses Papillary thyroid carcinoma Procedures US Thyroid Georgia Perez, DO [address] [place] [address] Phone: tel: fax: Referral ID Status Reason Start Date Expiration Date Visits Re quested Visits Authorized [id number] Closed 09/29/2024 12/29/2025 1 1 Encounter Details Date Type Department Care Team (Late st Contact Info) Description 09/29/2024 1:48 PM EDT Hospital Encounter [facility] ENDOCRINOLOGY [address] [place] [phone] Social History Tobacco Use Types Packs/Day Years [...] Description 10/04/2025 2:15 PM EDT Office Visit [facility] ENDOCRINOLOGY [address] [facility] [address] [place] [address] Georgia Perez, [address] [facility] [address] [place], [place] [id number] documented as of this encounter Procedures Procedure [...] on filedocumented in this encounter Care Teams Drafting Technician Relationship Specialty Start Date End Date Seth Fry MD [address] [place] [id number] PCP - General Family Medicine 08/29/21 documented as of this encounter
--- NOTE | 2025-03-13 10:15 | XR_ITS ---
FINAL REPORT CLINICAL HISTORY: CML COMPARISON: 12/13/2024, 05/06/2024 FINDINGS: 2 views of the chest were obtained . The heart is normal in size. The mediastinum is within normal limits. There is redemonstration of a right perihilar nodule measuring up to 23 mm. There is a moderate right and small left pleural effusion. There is no pneumothorax. Osseous structures are unremarkable. IMPRESSION: Stable pleural effusions and right lung nodule. Reviewed, Interpreted and Dictated by Savannah Sullivan MD Transcribed by Jackelin Latham Authenticated and [facility]
--- OUTSIDE RECORDS SUMMARY | 2025-03-13 10:18 | XMS_ITS | Clinical Summary ---
Author Organization [facility] Address [address] [place] [address] Care Team Providers Care Brickmason Apprentice Name Role Phone Steh Fry MD Primary Care Provider [phone] Allergies Active Allergy Reactions Criticality Noted Date [...] Noted Date Diagnosed Date Postoperative hypothyroidism 04/22/2022 CML (chronic myelocytic leukemia) 03/20/2022 Osteopenia 03/20/2022 Hyperlipidemia 03/20/2022 Papillary thyroid carcinoma 03/20/2022 Resolved Problems Problem Noted Date Diagnosed Date Resolved Date Primary hyperparathyroidism 03/20/2022 11/12/2022 Overview (03/20/2022): Added automatically from request for surgery [id number] S/P total thyroidectomy 03/20/202201/03 Overview (03/20/2022): Added automatically from request for surgery [id number] Family History Medical History Relation Name Comments [...] drink first t stefan in the morning (EYE-OUTSIDE CONTRACTOR SALES) to steady your nerves or to get [...] Vaccine: 50+ Years (2 of 2 - PPSV23, PCV20, or PCV21) 12/03/2018 10/08/2018 [facility]-Depression Screening 11/12/2023 11/11/2022 [facility]-Medicare Annual Wellness (AWV) 07/29/2024 07/30/2023 [id number] Vaccine ( season) 2025 02/05/2022, 12/02/2021, 12/27/2020, Additional history exists [facility]-Influenza Vaccine (#1) 2025 02/07/2022 [facility]-Obesity Intervention [...] patient's age to complete this topic Insurance [facility] MEDICARE Advance Directives * Full Code (Latest Code Status on File) Date Activated Date Inactivated Comments 05/06/2022 1:24 PM 05/07/2022 11:04 AM Question Answer Comments Patient has decision-making capacity? Yes Care Teams Brickmason Apprentice Relationship Specialty Start Date End Date Seth Fry MD [address] [facility] [address] PCP - General 09/14/20
--- OUTSIDE RECORDS SUMMARY | 2025-03-13 10:18 | XMS_ITS | Clinical Summary ---
Author Organization [facility] Address [address] [place] [id number] Care Team Providers Care Senior Datastage Developer Name Role Phone Seth Fry MD [...] (09/11/2022): Added automatically from request for surgery [id number] S/P total thyroidectomy 03/20/2022 Overview (09/11/2022): Added automatically from request for surgery [id number] Immunizations Immunization Administration Dates Next Due COVID-19 ([employer]) Purple Cap Monovalent 08/26/20 21,07/21/2020,06/27/2020 Covid-19 (Pfizer) [...] Description 10/04/2025 2:15 PM EDT Office Visit [facility] [address] [address] Georgia Perez, [address] [facility] [address] [place] [address] Health Maintenance Due Date Last [...] Date/Time Associated Diagnosis Comments SCANNED - LABS 03/06/2025 SCANNED - LABS 03/06/2025 SCANNED EKG 12/15/2024 SCANNED - LABS 12/15/2024 SCANNED - IMAGING 12/13/2024 SCANNED - MAMMO 07/11/2024 SCANNED - COLONOSCOPY 07/06/2020 from Last 3 Months or Most Recently Relevant to Health Maintenance Results * LABS SCANNED (03/06/2025) Only the most recent of3 resultswithin the time period is included. us Seth Fry MD LAB BLOOD ORDERABLES Fin al Result * ECG Scan (12/15/2024) Result [facility] Seth Fry MD ECG ORDERABLES Final Re sult * IMAGING SCANNED (12/13/2024) Anatomical Region Laterality Modality Radiographic Crystal ging Result [facility] Seth Fry MD IMG DIAGNOSTIC IMAGING O RDERABLES Final Result * MAMMO Scan (07/11/2024) Anatomical Region Laterality Modality Other Result [facility] Seth Fry MD CHART REVIEW TABS Fin al Result * Colonoscopy, Scan (07/06/2020) Result [facility] Seth Fry MD CHART REVIEW TABS Fin al Result from Last 3 Months or Most Recently Relevant to Health Maintenance Insurance [facility] Medicare Advantage GROUP PPO Care Teams Senior Datastage Developer Relationship Specialty Start Date End Date Seth Fry MD [facility] [address] PCP - General Family Medicine 08/29/21
--- OUTSIDE RECORDS SUMMARY | 2025-03-13 10:18 | XMS_ITS | Encounter Summary ---
Author Organization [facility] ystem Address [address] [place] [address] Care Team Providers Care Shoe Stock Associate Name Role Phone Seth Fry MD Primary Care Provider + Encounter Details Date Type Department Care Team (Late st Contact Info) Description 09/22/2024 Results Follow-Up [facility] [address] [place] [address] Georgia Perez DO [address] [place] [address] Social History Tobacco Use Types [...] 10/04/2025 2:15 PM EDT Office Visit [facility] [address] [place] [address] Georgia Perez, DO [address] [address] documented as of this encounter Visit Diagnoses Not on filedocumented in this encounter Care Teams Shoe Stock Associate Relationship Specialty Start Date End Date Seth Fry MD [address] [place] [address] PCP - General Family Medicine 08/29/21 documented as of this encounter
== END 2025-03-13 23:59 | disposition home or self-care (01) ==
LOC: RAD 10:12
PROVIDERS: PCP Family Medicine; Visit Provider Internal Medicine Medical Oncology
DX: C92.10 Chronic myeloid leukemia, BCR/ABL-positive, not having achieved remission (principal); J91.0 Malignant pleural effusion; R91.1 Solitary pulmonary nodule
CPT/HCPCS: 71046

== ENCOUNTER 2025-03-16 09:42 | Outpatient (CLI) | payer MEDICARE, SELFPAY ==
--- OUTSIDE RECORDS SUMMARY | 2023-03-31 11:06 | XMS_ITS | Encounter Summary ---
Author Organization [facility] yste Address [address] [place] [address] Care Team Providers Care Ui Ux Developer Name Role Phone Seth Fry MD Primary Care Provider + Reason for Visit * Diagnostic Imaging (Routine) - Closed Specialty Diagnoses / Procedures Referred By Contac t Referred To Contact Radiology Diagnoses Papillary thyroid carcinoma Procedures US Thyroid Georgia Perez, DO [address] [place] [address] Phone: tel: fax: Referral ID Status Reason Start Date Expiration Date Visits Re quested Visits Authorized [id number] Closed 03/31/2023 03/30/2024 1 1 Encounter Details Date Type Department Care Team (Late st Contact Info) Description 03/31/2023 11:06 AM EST Hospital Encounter [facility] ENDOCRINOLOGY [address] [facility] [address] [place] [phone] Social History Tobacco Use Types Packs/Day Years [...] Description 10/04/2025 2:15 PM EDT Office Visit [facility] ENDOCRINOLOGY [address] [place] [address] Georgia Perez DO [address] [facility] [address] [place] [address] documented as of this encounter [...] on filedocumented in this encounter Care Teams Ui Ux Developer Relationship Specialty Start Date End Date Seth Fry MD [address] [facility] [place] [address] PCP - General Family Medicine 08/29/21 documented as of this encounter
--- OUTSIDE RECORDS SUMMARY | 2024-09-29 12:48 | XMS_ITS | Encounter Summary ---
Author Organization [facility] yste Address [address] [place] [address] Care Team Providers Care College Sports Coach Name Role Phone Seth Fry MD Primary Care Provider + Reason for Visit * Diagnostic Imaging (Routine) - Closed Specialty Diagnoses / Procedures Referred By Contac t Referred To Contact Radiology Diagnoses Papillary thyroid carcinoma Procedures US Thyroid Georgia Perez, DO [address] [place] [address] Phone: tel: fax: Referral ID Status Reason Start Date Expiration Date Visits Re quested Visits Authorized [id number] Closed 09/29/2024 12/29/2025 1 1 Encounter Details Date Type Department Care Team (Late st Contact Info) Description 09/29/2024 1:48 PM EDT Hospital Encounter [facility] ENDOCRINOLOGY [address] [facility] [address] [place] [id number] Social History Tobacco Use Types Packs/Day Years [...] on file documented as of this encounter Plan of Treatment Upcoming Encounters Date Type Department Care Team (Late st Contact Info) Description 10/04/2025 2:15 PM EDT Office Visit [facility] ENDOCRINOLOGY [address] [facility] [address] [place] [address] Georgia Perez, [address] [facility] [address] [place], [place] [id number] documented as of this encounter Procedures Procedure Name Priority Date/Time Associated Diagnosis Comments US THYROID Routine 09/29/2024 1:48 PM EDT Papillary thyroid carcinoma documented in this encounter Results * US Thyroid (09/29/2024 1:48 PM EDT) Narrative SYSTEMGENERATED, DOCUMENTATION - 09/29/2024 1:48 PM EDT Please see performing physician's note for result. us Georgia Perez DO IMG US ORDERABLES Final R esult documented in this encounter Visit Diagnoses Not on filedocumented in this encounter Care Teams College Sports Coach Relationship Specialty Start Date End Date Seth Fry MD [address] [place] [id number] PCP - General Family Medicine 08/29/21 documented as of this encounter
--- OUTSIDE RECORDS SUMMARY | 2025-03-16 09:46 | XMS_ITS | Encounter Summary ---
Author Organization [employer] ([place], [place], [place], [place], [place]) Address [address] [place] [address] Care Team Providers Care Advertising Copywriter Name Role Phone Seth Fry MD Primary Care Provider [phone] Martha Jenkins MD Unavailable Encounter Details Date Type Department Care Team (Late st Contact Info) Description 06/25/2022 Telephone [facility] [employer] [address] [facility] [address] [place] [phone] Nalini Fitzgerald, LAUNDRY MANAGER [address] [place], [place] [id number] Social History Tobacco Use Types Packs/Day Years Used Date Smoking Tobacco: Never Assessed Comments Unknown Sex and Gender Information Value Date Recorded Sex Assigned at Not on file Legal Sex Female 5:17 PM CDT Gender Identity Not on file Sexual Orientation Not on file documented as of this encounter Plan of Treatment Not on file documented as of this encounter Visit Diagnoses Not on filedocumented in this encounter Care Teams Advertising Copywriter Relationship Specialty Start Date End Date Seth Fry MD PCP - General Family Medicine 08/05/22 Martha Jenkins MD [address] [place] [address] Acoustic Intelligence Specialist Endocrinology 06/22/19 documented as of this encounter
--- OUTSIDE RECORDS SUMMARY | 2025-03-16 09:46 | XMS_ITS | Referral Summary ---
Author Organization [employer] ([place], [place], [place], [place], [place]) Address [address] [place] [address] Care Team Providers Care Abrasive Grader Helper Name Role Phone Seth Fry MD Primary Care Provider [phone] Martha Jenkins MD Unavailable Allergies Active Allergy [...] (07/09/2022): Added automatically from request for surgery [id number] S/P total thyroidectomy 03/20/2022 Overview (07/09/2022): Added automatically from request for surgery [id number] Hyperlipidemia 03/20/2022 Osteopenia 03/20/2022 CML (chronic myelocytic leukemia) 03/20/2022 Thyroid nodule 05/04/2021 Papillary carcinoma of thyroid 01/15/2021 Hypercalcemia 01/15/2021 Vitamin D deficiency 01/15/2021 Postoperative hypothyroidism 07/04/2020 Immunizations Immunization Administration Dates Next Due Influenza, Unspecified 02/07/2022 [...] Date Franck rded Speak language other than Montenegrin at home Not on file 05/22/2023 Want [...] 01/11/2024 11:59 AM EDT Plan of Treatment Not on file Insurance [facility] MEDICARE ADVANTAGE Care Teams Abrasive Grader Helper Relationship Specialty Start Date End Date Seth Fry MD PCP - General Family Medicine 08/05/22 Martha Jenkins MD [address] [place] [address] Aquarium Tank Attendant Endocrinology 06/22/19
--- OUTSIDE RECORDS SUMMARY | 2025-03-16 09:46 | XMS_ITS | Clinical Summary ---
Author Organization [facility] Address [address] [place] [id number] Care Team Providers Care Windows Infrastructure Engineer Name Role Phone eSth Fry MD Primary Care Provider + Allergies [...] (09/11/2022): Added automatically from request for surgery [id number] S/P total thyroidectomy 03/20/2022 Overview (09/11/2022): Added automatically from request for surgery [id number] Immunizations Immunization Administration Dates Next Due COVID-19 ([employer]) Purple Cap Monovalent 08/26/20 21,07/21/2020,06/27/2020 Covid-19 (Pfizer) [...] 10/04/2025 2:15 PM EDT Office Visit [facility] [address] [phone] Georgia Perez, [address] [facility] [address] [place] [address] Health Maintenance Due Date Last [...] 02/07/2022 COVID-19 Vaccine (8 - Pfizer risk 2023- season) 2025 02/23/2024, 02/09/2023, 02/05/2022, Additional history exists ANNUAL WELLNESS VISIT 08/02/2025 08/02/2024 , 08/02/2024, 07/30/2023, Additional history exists MAMMOGRAM 07/13/2026 07/13/2024, 07/02, 07/08/2023, Additional history exists COLONOSCOPY 01/03/2028 07/06/2020 COLORECTAL CANCER SCREENING 01/03/2028 Procedures Procedure Name Priority Date/Time Associated Diagnosis Comments SCANNED - IMAGING 03/13/2025 SCANNED - LABS 03/06/2025 SCANNED - LABS 03/06/2025 SCANNED - LABS 03/06/2025 SCANNED EKG 12/15/2024 SCANNED - LABS 12/15/2024 SCANNED - MAMMO 07/11/2024 SCANNED - COLONOSCOPY 07/06/2020 from Last 3 Months or Most Recently Relevant to Health Maintenance Results * IMAGING SCANNED (03/13/2025) Anatomical Region Laterality Modality Radiographic Crystal ging us Seth Fry MD IMG DIAGNOSTIC IMAGING O RDERABLES Final Result * LABS SCANNED (03/06/2025) Only the most recent of4 resultswithin the time period is included. Result [facility] Seth Fry MD LAB BLOOD ORDERABLES Fin al Result * ECG Scan (12/15/2024) Seth Fry MD ECG ORDERABLES Final Re sult * MAMMO Scan (07/11/2024) Anatomical Region Laterality Modality Other Seth Fry MD CHART REVIEW TABS Fin al Result * Colonoscopy, Scan (07/06/2020) Result [facility] Seth Fry MD CHART REVIEW TABS Fin al Result from Last 3 Months or Most Recently Relevant to Health Maintenance Insurance [facility] Medicare [employer] PPO Care Teams Windows Infrastructure Engineer Relationship Specialty Start Date End Date Seth Fry MD [address] [place] [address] PCP - General Family Medicine 08/29/21
--- OUTSIDE RECORDS SUMMARY | 2025-03-16 09:46 | XMS_ITS | Encounter Summary ---
Author Organization [facility] ystem Address [address] [place] [address] Care Team Providers Care Agile Coach Name Role Phone Seth Fry MD Primary Care Provider + Encounter Details Date Type Department Care Team (Late st Contact Info) Description 09/22/2024 Results Follow-Up [facility] [address] [place] [address] Georgia Perez DO [address] [place] [address] Social History Tobacco Use Types [...] HOSPITAL ENDOCRIN[facility] [address] [place] [address] Georgia Perez, DO [address] [address] documented as of this encounter Visit Diagnoses Not on filedocumented in this encounter Care Teams Agile Coach Relationship Specialty Start Date End Date Seth Fry MD [address] [place] [address] PCP - General Family Medicine 08/29/21 documented as of this encounter
--- OUTSIDE RECORDS SUMMARY | 2025-03-16 09:46 | XMS_ITS | Clinical Summary ---
Author Organization [facility] Address [address] [place] [address] Care Team Providers Care Digital Operations Analyst Name Role Phone Seth Fry MD Primary Care Provider [phone] Allergies Active Allergy Reactions Criticality Noted Date [...] (03/20/2022): Added automatically from request for surgery [id number] S/P total thyroidectomy 03/20/202201/03 Overview (03/20/2022): Added automatically from request for surgery [id number] Family History Medical History Relation Name Comments [...] drink first t stefan in the morning (EYE-BOWLING BALL GRADER AND MARKER) to steady your nerves or to get [...] 11/11/2022 [facility]are Annual Wellness (AWV) 07/29/2024 07/30/2023 [id number] Vaccine ( season) 2025 02/05/2022, 12/02/2021, 12/27/2020, [...] patient's age to complete this topic Insurance [facility] MEDICARE Advance Directives * Full Code (Latest Code Status on File) Date Activated Date Inactivated Comments 05/06/2022 1:24 PM 05/07/2022 11:04 AM Question Answer Comments Patient has decision-making capacity? Yes Care Teams Digital Operations Analyst Relationship Specialty Start Date End Date Seth Fry MD [address] [facility] [place] [address] PCP - General 09/14/20
--- OUTSIDE RECORDS SUMMARY | 2025-03-16 09:46 | XMS_ITS | Clinical Summary ---
Author Organization [employer] ([place], [place], [place], [place], [place]) Address [address] [place] [address] Care Team Providers Care Salvage Laborer Name Role Phone Seth Fry MD Primary Care Provider [phone] Martha Jenkins MD Unavailable Allergies Active Allergy [...] Cancer Staging:Clinical:Stage IA(cT1c, cN0, cM0, G2, ER+, AK+, HER2-) - Unsigned Encounter for general adult medical examination without abnormal findings 07/09/2022 History of thyroid cancer 04/22/2022 History of breast cancer 04/22/2022 Primary hyperparathyroidism 03/20/2022 Overview (07/09/2022): Added automatically from request for surgery [id number] S/P total thyroidectomy 03/20/2022 Overview (07/09/2022): Added automatically from request for surgery [id number] Hyperlipidemia 03/20/2022 Osteopenia 03/20/2022 CML (chronic myelocytic [...] Date Franck rded Speak language other than Cambodian at home Not on file 05/22/2023 Want [...] 01/11/2024 11:59 AM EDT Plan of Treatment Health Maintenance Due [...] Pneumococcal 50+ years (2 of 2 - PPSV23, PCV20, or PCV21) 12/03/2018 10/08/2018 Falls Risk Screening 05/04/2024 COVID-19 VACCINE (6 - 2024-2 6 season) 2025 02/05/2022, 12/02/2021, 12/27/2020, Additional history exists Influenza Vaccine (#1) 2025 02/09/2023 Tobacco Cessation Counseling and Screening (12+) 01/10/2025 01/11/2024 Insurance [facility] MEDICARE ADVANTAGE Care Teams Salvage Laborer Relationship Specialty Start Date End Date Seth Fry MD PCP - General Family Medicine 08/05/22 Martha Jenkins MD [address] [place] [address] Cleaning Professional Endocrinology 06/22/19
[2025-03-16 11:14] LABS: Magnesium 1.8 mg/dl (1.6-2.3); Phosphorous 4.2 mg/dl (2.5-4.5)
== END 2025-03-16 23:59 | disposition home or self-care (01) ==
LOC: LAB 09:42
PROVIDERS: PCP Family Medicine; Visit Provider Internal Medicine Medical Oncology
DX: C92.10 Chronic myeloid leukemia, BCR/ABL-positive, not having achieved remission (principal)
CPT/HCPCS: 36415; 83735; 84100